=== PATIENT | male | born 1955 | race Caucasian/White ===

== ENCOUNTER 2019-09-12 13:53 | Inpatient (IN) | payer BC, SELFPAY ==
[~2019-09-12] VITALS: Ht 165.1 cm; Wt 91.6 kg
[2019-09-12 13:53] VITALS: BP_SYST 116
--- NOTE | 2019-09-12 13:53 | NUR ---
Patient to ER surge tent for evaluation. Side rails up.
--- NOTE | 2019-09-12 13:54 | NUR ---
Patient came from home for evaluation of COVID-19 symptoms. He reports being test 1 month ago with a negative test, he was tested again last Wednesday with pending results. Patient is complaining of a fever that is managed by Tylenol, chest pain, nausea, urinary retention, and dry cough.
--- NOTE | 2019-09-12 14:07 | NUR ---
ER in tent examining patient.
[2019-09-12 16:16] LABS: BASOPHILS % (AUTO) 0.4 % (0.0-2.0); HEMATOCRIT 40.9 % (36-54); HEMOGLOBIN 13.6 g/dL (14.0-18.0); LYMPHOCYTES # (AUTO) 0.5 K/uL (1.0-5.5); LYMPHOCYTES % (AUTO) 9.8 % (20.5-51.5); MEAN CORPUSCULAR HEMOGLOBIN 30 pg (27-31); MEAN CORPUSCULAR HGB CONC 33 % (32-36); MEAN CORPUSCULAR VOLUME 89 fL (79.0-98.0); MONOCYTES # (AUTO) 0.2 K/uL (0.0-1.0); MONOCYTES % (AUTO) 4.7 % (1.7-9.3); NEUTROPHILS # (AUTO) 4.4 K/uL (1.8-7.7); NEUTROPHILS % (AUTO) 85.1 % (40.0-70.0); PLATELET COUNT (AUTO) 174 K/uL (130-430); RED BLOOD CELL COUNT(AUTO) 4.58 MIL/uL (4.2-6.2); RED CELL DISTRIBUTION WIDTH 13.6 % (9.0-15.0); WHITE BLOOD COUNT (AUTO) 5.2 K/uL (4.8-10.8)
[2019-09-12 16:35] LABS: CALCIUM 8.3 mg/dL (8.4-11.0); CREATININE 0.94 mg/dL (0.55-1.30); POTASSIUM 3.7 mmol/L (3.5-5.1)
[2019-09-12 16:40] LABS: ALBUMIN 3.1 g/dL (3.4-4.8); TOTAL BILIRUBIN 0.4 mg/dL (0.0-1.0)
--- NOTE | 2019-09-12 17:00 | NUR ---
Placed in room 4. Placed on monitor and storage bin tender, blood pressure machine and pulse oximeter. To gown for exam. Side rails up. Report given to ALEXANDRU Fofana.
[2019-09-12 17:01] LABS: C-REACTIVE PROTEIN QUANT 13.7 mg/dL (0-0.5)
--- NOTE | 2019-09-12 17:01 | NUR ---
Report given to ALEXANDRU Fofana for continuation of care.
--- NOTE | 2019-09-12 17:02 | NUR ---
ASSUMED CARE OF PT IN BED 4.
--- NOTE | 2019-09-12 17:05 | NUR ---
PT AAO AND AMBULATORY C/O FEVER, CHILLS, CONGESTION, AND BODY ACHES FOR PAST 6 DAYS. PT V/S STABLE.
[2019-09-12] MEDS ORDERED: cefTRIAXone 1 GM in D5W 50 ML IV ONE (17:15)
[2019-09-12] MEDS ORDERED: AZITHROMYCIN 500 MG in NS 250 ML IV ONE (17:15)
[2019-09-12] MEDS ORDERED: AZITHROMYCIN 500 MG/VIAL (ZITHROMAX) IV ONE (18:33)
[2019-09-12] MEDS ORDERED: cefTRIAXone 1 GM VIAL ONE (18:33)
[2019-09-12 18:58] LABS: BILIRUBIN,URINE NEGATIVE (NEGATIVE); BLOOD, URINE NEGATIVE (NEGATIVE); CLARITY/URINE CLEAR (CLEAR); COLOR,URINE ORANGE (YELLOW); GLUCOSE,URINE NEGATIVE (NEGATIVE); KETONES,URINE TRACE (NEGATIVE); LEUKOCYTE ESTERASE ,URINE NEGATIVE (NEGATIVE); NITRITE, URINE NEGATIVE (NEGATIVE); PROTEIN URINE 1+ (NEGATIVE)
[2019-09-12 19:13] LABS: RBC,URINE 0-3 /HPF (0-3); WBC,URINE 0-3 /HPF (0-3)
[2019-09-12 19:14] LABS: BACTERIA,URINE FEW /HPF (None Seen)
[2019-09-12 19:18] LABS: HYALINE CASTS, URINE 0-10 /LPF (None Seen); MUCUS,URINE 2+ /LPF (None Seen)
[2019-09-12] MEDS ORDERED: AUG875 PO (19:44)
[2019-09-12] MEDS ORDERED: TAMS-11 PO (19:44)
--- NOTE | 2019-09-12 19:55 | NUR ---
PT MOVED FROM [facility] TO HOSPITAL BED. PT POSITIONED TO COMFORT. PT RE-ATTACHED TO MONITOR. SIDE RAILS UP.
--- NOTE | 2019-09-12 20:15 | NUR ---
COVID TEST SENT TO LAB.
[2019-09-12] MEDS: TAMSULOSIN HCL 0.4 MG CAP PO SCH (20:43)
[2019-09-12] MEDS: ACETAMINOPHEN 325 MG TABLET PO PRN (20:44)
--- NOTE | 2019-09-12 20:44 | NUR ---
PT MEDICATED FOR 100.5 TEMP WITH TYLENOL.
--- NOTE | 2019-09-12 20:55 | NUR ---
Transfer to HOSPITAL BED via ACLS protocol. Licensed nurse present. IV present no signs or symptoms of infiltration.
[2019-09-12] MEDS ORDERED: ZOLPIDEM TARTRATE 5 MG TABLET PO PRN (21:00)
--- NOTE | 2019-09-12 21:06 | NUR ---
Admission Note Received patient from ER with diagnosis of Hypoxia, Pneumonia, Rule out covid. Initial Plan of Care discussed-patient verbalized understanding, Isolation precautions to be provided. Oriented to room, call light, pain management and safety.
[2019-09-12 21:15] VITALS: BP_SYST 123
--- NOTE | 2019-09-12 21:15 | NUR ---
OPENING NOTES Patient is resting, no signs of distress observed, 2L NC provided, O2 at 92%. 99.2 Temperature, cooling measures provided. IV site patent, dressings c/d/i. Call light within reach, bed alarm on, bed at lowest position. Will continue to monitor.
[2019-09-12] MEDS: FAMOTIDINE 20 MG TABLET PO SCH (22:15)
[2019-09-12] MEDS ORDERED: FAMOTIDINE 20 MG TABLET PO ONE (23:59)
[2019-09-13] VITALS: BP_SYST 118
--- NOTE | 2019-09-13 00:06 | NUR ---
Patient is resting, no signs of acute respiratory distress observed. Ambulated to the restroom. Will continue to monitor.
--- NOTE | 2019-09-13 04:09 | NUR ---
Patient is resting, sleeping to the side, self thompson. O2 saturation of 93% with 4L NC at this time.
--- NOTE | 2019-09-13 06:50 | NUR ---
CLOSING NOTES Patient is resting, HOB elevated, no signs of respiratory distress observed, 4L NC. Call light within reach, bed alarm refused with proper usage of call light shown throughout shift, IV site patent, dressings c/d/i. All needs met throughout shift. will endorse care to oncoming shift.
--- NOTE | 2019-09-13 06:59 | NUR ---
Nutrition Update Jeffry Scale 18 noted. Pt admitted for Hypoxia, Pneumonia, R/O COVID Diet: Soft Low Fiber/[place] BMI: 33.6 kg/m2 RD to follow per nutrition care standards.
[2019-09-13 07:10] LABS: BASOPHILS % (AUTO) 0.2 % (0.0-2.0); HEMATOCRIT 39.2 % (36-54); HEMOGLOBIN 13.2 g/dL (14.0-18.0); LYMPHOCYTES # (AUTO) 0.7 K/uL (1.0-5.5); LYMPHOCYTES % (AUTO) 12.2 % (20.5-51.5); MEAN CORPUSCULAR HEMOGLOBIN 30 pg (27-31); MEAN CORPUSCULAR HGB CONC 34 % (32-36); MEAN CORPUSCULAR VOLUME 89 fL (79.0-98.0); MONOCYTES # (AUTO) 0.3 K/uL (0.0-1.0); MONOCYTES % (AUTO) 4.4 % (1.7-9.3); NEUTROPHILS # (AUTO) 4.8 K/uL (1.8-7.7); NEUTROPHILS % (AUTO) 83.2 % (40.0-70.0); PLATELET COUNT (AUTO) 177 K/uL (130-430); RED BLOOD CELL COUNT(AUTO) 4.39 MIL/uL (4.2-6.2); RED CELL DISTRIBUTION WIDTH 13.6 % (9.0-15.0); WHITE BLOOD COUNT (AUTO) 5.7 K/uL (4.8-10.8)
[2019-09-13 07:48] LABS: ALBUMIN 2.9 g/dL (3.4-4.8); CALCIUM 8.3 mg/dL (8.4-11.0); CREATININE 0.79 mg/dL (0.55-1.30); POTASSIUM 3.6 mmol/L (3.5-5.1); THYROID STIMULATING HORMONE 0.65 uIu/mL (0.34-4.82); TOTAL BILIRUBIN 0.5 mg/dL (0.0-1.0)
[2019-09-13 07:54] LABS: C-REACTIVE PROTEIN QUANT 15.9 mg/dL (0-0.5)
[2019-09-13 08:00] VITALS: BP_SYST 123
--- NOTE | 2019-09-13 08:00 | NUR ---
Note Pt sitting up in bed to eat his breakfast. Tele unit attached and intact at this time. IV in left AC intact and patent at this time. No SOB/resp distress or pain/discomfort noted at this time. Call light within reach.
[2019-09-13 08:36] LABS: ERYTHROCYTE SEDIMENTATION RATE 48 MM/HR (0-15)
--- NOTE | 2019-09-13 09:04 | NUR ---
CONSULTATION PAGED/CALLED Reason for Consultation: [] HUMBERTO CLEMENTE, JEANNE, START ON HCQ Person Who was Notified: [] GAMAL Consulting Physician: [] DR HAUSER Software Qa Manager Specialty: [] ID Ordering Physician: [] DR JOHNSON
[2019-09-13] MEDS: ASCORBIC ACID 500 MG TABLET PO SCH ×2 (09:28→20:30)
[2019-09-13] MEDS: FAMOTIDINE 20 MG TABLET PO SCH (09:28)
--- NOTE | 2019-09-13 09:50 | NUR ---
Note Dr Herbert at pt's bedside doing assessment and answering questions/concerns. Call light within reach.
[2019-09-13] MEDS: cefTRIAXone 1 GM in D5W 50 ML IV SCH (09:54)
--- NOTE | 2019-09-13 11:05 | NUR ---
Note Pt sitting up in BS chair watching television and has O2 on at 4L/nc all shift. No needs noted at this time. Call light within reach.
[2019-09-13] MEDS: ENOXAPARIN SODIUM 40 MG/0.4 ML SYRINGE SUBCUT SCH (11:30)
--- NOTE | 2019-09-13 11:30 | NUR ---
Note Dr Montiel on the floor to assess pt at this time.
[2019-09-13] MEDS: DECADRON 4 MG TABLET PO SCH (11:52)
[2019-09-13 12:00] VITALS: BP_SYST 120
[2019-09-13] MEDS: DOXYCYCLINE HYCLATE 100 MG CAPSULE PO SCH ×2 (12:01→20:30)
[2019-09-13] MEDS ORDERED: ENOXAPARIN SODIUM 40 MG/0.4 ML SYRINGE ONE (12:15)
--- NOTE | 2019-09-13 12:16 | NUR ---
SS NOTES: TOPOGRAPHICAL SURVEYOR attempted to phone patient @ [phone] and cell [phone], no answer. TOPOGRAPHICAL SURVEYOR phoned [facility] @ [phone], none working number.
[2019-09-13] MEDS ORDERED: ALBUTEROL SULFATE 0.083% 2.5 MG/3 ML VIAL.NEB INH SCH (15:00)
[2019-09-13] MEDS: CHOLECALCIFEROL (VITAMIN D3) 2,000 UNIT TABLET PO SCH (15:45)
[2019-09-13 16:00] VITALS: BP_SYST 142
--- NOTE | 2019-09-13 16:00 | NUR ---
Note Pt sitting in BS chair watching television. No needs noted at this time. Pt has O2 at 4L/nc on all shift. Tele unit attached and intact. Call light within reach.
[2019-09-13] MEDS ORDERED: CHOLECALCIFEROL (VITAMIN D-3) 400 UNIT TABLET ONE (16:08)
--- NOTE | 2019-09-13 18:35 | NUR ---
Note Pt sitting up in BS chair eating his dinner. Pt has been sitting up in BS chair most of shift. No SOB/resp distress or pain/discomfort noted at this time. Pt has his O2 on at 4L/nc on all shift. Pt's tele unit attached and intact all shift. Pt was checked on q1' and PRN all shift for needs and care. Pt stable to ambulate to restroom and sink for hygiene care. IV in left AC intact and patent at this time. No needs noted at this time. Pt maintained with safety and isolation precautions all shift. Bed in low position. No needs noted at this time. Call light within reach.
--- NOTE | 2019-09-13 19:34 | NUR ---
ROUNDS PATIENT RESTING COMFORTABLY IN BED, VITALS STABLE, NO PAIN AT THIS TIME. ASSESSMENT DONE AND DOCUEMNTED. SEE FLOWSHEET. NEEDS ATTENDED TO. SAFETY MEASURES IN PLACED. CALL LIGHT PLACED WITHIN REACH.
[2019-09-13 20:00] VITALS: BP_SYST 120
[2019-09-13] MEDS: TAMSULOSIN HCL 0.4 MG CAP PO SCH (20:30)
--- NOTE | 2019-09-13 22:14 | NUR ---
MEDICATION DUE MEDICATIONS GIVEN ORDERED, TOLERATED WELL. WILL CONTINUE TO MONITOR.
--- NOTE | 2019-09-14 00:12 | NUR ---
PATIENT RESTING: Patient resting quietly. No acute distress noted. Vital signs within normal range.
--- NOTE | 2019-09-14 02:16 | NUR ---
ROUNDS PATIENT ASLEEP, RESPIRATIONS EVEN AND UNLABORED, WILL CONTINUE TO MONITOR.
--- NOTE | 2019-09-14 04:13 | NUR ---
PATIENT RESTING: Patient resting quietly. No acute distress noted. Vital signs within normal range.
[2019-09-14 08:00] VITALS: BP_SYST 129
--- NOTE | 2019-09-14 08:00 | NUR ---
OPENING NOTES, RECEIVED PT IN BED , PT IS AAOX4, DENIES PAIN, NO SOB, PT NOTED TO HAVE CRACKLES ON BOTH LUNGS, PT ENCOURAGED TO TAKE DEEP BREATHS AND DO PRONING.
[2019-09-14] MEDS: cefTRIAXone 1 GM in D5W 50 ML IV SCH (08:31)
[2019-09-14] MEDS: CHOLECALCIFEROL (VITAMIN D3) 2,000 UNIT TABLET PO SCH (08:32)
[2019-09-14] MEDS: ASCORBIC ACID 500 MG TABLET PO SCH ×2 (08:32→21:36)
[2019-09-14] MEDS: FAMOTIDINE 20 MG TABLET PO SCH (08:32)
[2019-09-14] MEDS: ENOXAPARIN SODIUM 40 MG/0.4 ML SYRINGE SUBCUT SCH (08:32)
[2019-09-14] MEDS: DOXYCYCLINE HYCLATE 100 MG CAPSULE PO SCH ×2 (08:32→21:36)
[2019-09-14 08:50] LABS: BASOPHILS % (AUTO) 0.1 % (0.0-2.0); HEMATOCRIT 41.3 % (36-54); HEMOGLOBIN 14.3 g/dL (14.0-18.0); LYMPHOCYTES # (AUTO) 0.7 K/uL (1.0-5.5); LYMPHOCYTES % (AUTO) 7.5 % (20.5-51.5); MEAN CORPUSCULAR HEMOGLOBIN 31 pg (27-31); MEAN CORPUSCULAR HGB CONC 35 % (32-36); MEAN CORPUSCULAR VOLUME 90 fL (79.0-98.0); MONOCYTES # (AUTO) 0.6 K/uL (0.0-1.0); MONOCYTES % (AUTO) 6.4 % (1.7-9.3); PLATELET COUNT (AUTO) 206 K/uL (130-430); RED BLOOD CELL COUNT(AUTO) 4.61 MIL/uL (4.2-6.2); RED CELL DISTRIBUTION WIDTH 13.7 % (9.0-15.0); WHITE BLOOD COUNT (AUTO) 9.3 K/uL (4.8-10.8)
[2019-09-14 09:42] LABS: C-REACTIVE PROTEIN QUANT 17.1 mg/dL (0-0.5)
--- NOTE | 2019-09-14 09:45 | NUR ---
PT IN CHAIR RESTING, NO C/O PAIN, NO SOB, PT UNHOOKED FROM IV, PT ON O2.
--- NOTE | 2019-09-14 09:48 | NUR ---
PT IN CHAIR, NO C/O PAIN, PT ON O2 5L NC, SATURATION IS 93%.
--- NOTE | 2019-09-14 10:09 | NUR ---
DR ALATORRE HERE AND SEEN PT, MD ENCOURAGED PT TO DO SELF PRONING AND NEW ORDERS GIVEN.
[2019-09-14] MEDS: HYDROXYCHLOROQUINE SULFATE 200 MG TABLET PO SCH ×2 (12:01→22:59)
[2019-09-14] MEDS: DECADRON 4 MG TABLET PO SCH (12:02)
[2019-09-14 12:18] VITALS: BP_SYST 116
--- NOTE | 2019-09-14 13:23 | NUR ---
PATIENT SATURATION ON 7LI NC IS 88-89%, DR JOHNSON MADE AWARE, NEW ORDER GIVEN AND CARRIED OUT.
[2019-09-14] MEDS: ALBUTEROL MDI INHALATION 8 GM INH INH SCH ×2 (13:49→22:20)
--- NOTE | 2019-09-14 14:08 | NUR ---
CONSULTATION: REASON FOR CONSULT: COVID + PNA, O2 DESATURATION DESPITE ESCALATING O2 SUP CONSULTING PHYSICIAN: ISRA RICHARDSON DO ORDERED BY: YOLANDA JOHNSON MD CALLED THE OFFICE AND I WAS INSTRUCTED TO USE THE PAGER. LEFT [facility] [phone]
[2019-09-14] MEDS: POTASSIUM CHLORIDE 10 MEQ in NACL 0.9% 1,000 ML IV SCH ×2 (15:00→20:08)
[2019-09-14 16:25] VITALS: BP_SYST 102
--- NOTE | 2019-09-14 16:30 | NUR ---
LEFT AC IV ACCESS LEAKING, DISCONTINUE, NEW IV ON LEFT FOREARM STARTED, PT TOLERATED WELL. IV FLUIDS INFUSING WELL. PT O2 SAT ON 5 LI OXIMIZER IS 93%. WILL CONT TO MONITOR.
[2019-09-14 16:33] LABS: ALBUMIN 2.8 g/dL (3.4-4.8); CALCIUM 8.9 mg/dL (8.4-11.0); CREATININE 0.88 mg/dL (0.55-1.30); POTASSIUM 4.3 mmol/L (3.5-5.1); TOTAL BILIRUBIN 0.4 mg/dL (0.0-1.0)
[2019-09-14 17:09] LABS: HEMATOCRIT 41.1 % (36-54); HEMOGLOBIN 13.9 g/dL (14.0-18.0); LYMPHOCYTES % (AUTO) 4.6 % (20.5-51.5); MEAN CORPUSCULAR HEMOGLOBIN 30 pg (27-31); MEAN CORPUSCULAR HGB CONC 34 % (32-36); MEAN CORPUSCULAR VOLUME 90 fL (79.0-98.0); NEUTROPHILS % (AUTO) 90.7 % (40.0-70.0); PLATELET COUNT (AUTO) 228 K/uL (130-430); RED BLOOD CELL COUNT(AUTO) 4.58 MIL/uL (4.2-6.2); RED CELL DISTRIBUTION WIDTH 13.6 % (9.0-15.0); WHITE BLOOD COUNT (AUTO) 11.7 K/uL (4.8-10.8)
[2019-09-14 17:10] LABS: LYMPHOCYTES # (AUTO) 0.5 K/uL (1.0-5.5); MONOCYTES # (AUTO) 0.5 K/uL (0.0-1.0); MONOCYTES % (AUTO) 4.7 % (1.7-9.3); NEUTROPHILS # (AUTO) 10.6 K/uL (1.8-7.7)
--- NOTE | 2019-09-14 18:32 | NUR ---
pt c/o of shortness of breath, stated that he was coughing, o2 sat was 89% on 6 li oxymizer, increased o2 to 8 li. will cont to monitor.
--- NOTE | 2019-09-14 18:42 | NUR ---
CLOSING NOTES, PT PLACED ON OXYMIZER 6 LI SINCE THIS PM FROM 02 7 LI PER NC, O2 SAT WENT UP TO 92-93%. BEFORE DINNER PT AMBULATED TO BATHROOM WITH OUT OXYGEN, O2 SAT WENT DOWN TO 88 % AND REMAINDE THERE EVEN AFTER RECONNECTED TO OXYMIZER, PT C/O OF COUGHING AND HAD AND EPISODE OF SHORTNESS OF BREATH, 02 WAS INCREASED TO 8LI. WILL ENDORSE TO NIGHT NURSE. Addendum: 09/14/19 at 1851 by Sebastian Carver RN PT GIVEN MDI INHALATION 2 PUFFS.
--- NOTE | 2019-09-14 20:00 | NUR ---
INITIAL NOTES: PT IS AWAKE , SITTING UP ON A CHAIR AT THE BEDSIDE ; NOT IN ANY ACUTE DISTRESS; ONO2 VIA OXYMIZER 8 L , SAT 92% ; WILL DO ASSESSMENT LATER
[2019-09-14 21:00] VITALS: BP_SYST 112
--- NOTE | 2019-09-14 21:00 | NUR ---
RN NOTES: PT IS STILL SITTING ON A CHAIR AT THE BEDSIDE ; NOT IN ANY ACUTE DISTRESS; ENCOURAGED PT TO DO DEEP BREATHING EXERCISE AND EDUCATED PT ON NEED FOR PRONE POSITION WHILE SLEEPING ; PT STATED HE WILL TRY IT TONIGHT ; ASSESSMENT DONE ; ON O2 8L VIA OXYMIZER STILL SAT 92- 93% AT THIS TIME ; BED IN LOW AND LOCK POSITION ; CALL NUNEZ IN REACH ; ENCOURAGED PT TO CALL FOR ASSIST ; PER REPORT PT DESAT WHILE AMBULATING ; ENCOURAGED PT TO CALL FOR ASSIST WHILE USING RESTROOM ; IS AWARE ABOUT THE DESAT AND AN ORDER IN PLACE TO KEEP SAT ABOVE 92 ON OXYMIZER . WILL CONTINUE TO MONITOR PT , TELEMONITOR IN PLACE RUNNING SR ; CONTINUOS PULSE OX IN PLACE .
--- NOTE | 2019-09-14 21:30 | NUR ---
MEDICATION : DUE MEDS GIVEN PER ORDER ; PT IS COMFORTABLE ; STILL SITTING AT BEDSIDE ON A CHAIR ; WILL CONTINUE TO MONITOR PT .
[2019-09-14] MEDS: TAMSULOSIN HCL 0.4 MG CAP PO SCH (21:35)
--- NOTE | 2019-09-14 23:00 | NUR ---
RN NOTES: PROVIDED PLAQUENIL PER ORDER PTS PREVIOUS QTC WAS 393 ; PT IS STILL SITTING UP STATED HE WILL BE GOING TO BED SOON TO SLEEP ; ENCOURAGED PT TO SLEEP ON PRONE POSITION .
[2019-09-14] MEDS ORDERED: guaiFENesin/DEXTROMETHORPHAN 10 ML UDC PO PRN (23:15)
--- NOTE | 2019-09-15 00:05 | NUR ---
PT IS SLEEPING NOTICED THAT PT IS DESATING TO 865 ; ENCOURAGED PT TO TAKE DEEP BREATHS STILL WHILE PT IS SLEEPING SAT DROPPING TO MID 80S ; INCREASED O2 TO 10 L VIA OXYMIZER , CHARGE NURSE MADE AWARE ,ALSO NOTIFIED RT .
[2019-09-15 00:40] VITALS: BP_SYST 112
--- NOTE | 2019-09-15 00:50 | NUR ---
RN NOTES: WITH 10 L O2 STILL PT IS DESATING TO 86-87% ; RT MADE AWARE , STATED WILL COME AND CHECK PT ; ENCOURAGED PT TO TAKE DEEP BREATHING EXERCISE.
[2019-09-15 01:00] VITALS: BP_SYST 112
--- NOTE | 2019-09-15 01:10 | NUR ---
NON REBREATHER : AFTER CHECKING BY RT , RT PLACED PT ON NON REBREATHER MASK 15L ; NOTIFIED CHARGE NURSE AND BARREL FINISHER ; WILL NOTIFY BUSINESS COMMUNICATIONS INSTRUCTOR .
--- NOTE | 2019-09-15 01:15 | NUR ---
PT IS SAT ABOVE 94% AT THIS TIME ; WILL MONITOR PT .
--- NOTE | 2019-09-15 02:00 | NUR ---
CALLED BACK : DR STREET IS SUBGRADE ROLLER OPERATOR FOR DR RICHARDSON , PULMO DIDNT SEEN THIS PT YET , SO EXPLAINED SITUATION OF LOW O2 SAT , ALSO EXPLAINED TO HIM THAT PT WAS ON O2 VIA NC YESTERDAY AND FROM TODAY MORNING PT IS ON OXYMIZER DUE TO DESAT , DURING START OF THE SHIFT PT WAS ON 8 L OXYMIZER AND WHILE SLEEPING PT WAS DESAT TO MID 80S SO INCREASED TO 10 L VIA OXYMIZER AND STILL DESAT TO 87% RT NOTIFIED AND RT PLACED PT ON NON REBREATHER MASK 15 L AND PT IS STILL ON LOW 90S SOMETIMES DROP TO 89%; STATED " OK , HE WILL COME AND SEE THE PT IN THE MORNING " AND HANGED UP THE PHONE . Addendum: 09/15/19 at 0542 by Gilmar Hurtado RN CORRECTION : DR COPE WAS SUBGRADE ROLLER OPERATOR FOR DR RICHARDSON , NOT DR STREET
--- NOTE | 2019-09-15 02:20 | NUR ---
C DIFF SPECIMEN COLLECTED : PT HAS A SMALL SOFT BM ; NOT WATERY , SINCE MD ORDERED SENT SPECIMEN TO LAB .
[2019-09-15] MEDS: POTASSIUM CHLORIDE 10 MEQ in NACL 0.9% 1,000 ML IV SCH ×2 (02:30→09:06)
--- NOTE | 2019-09-15 03:29 | NUR ---
RN ROUNDS: PT IS SLEEPING , NOT IN ANY ACUTE DISTRESS; RESPIRATION IS EVEN AND NON LABORED ; SAT 92-93 % AT THIS TIME ; WILL MONITOR .
--- NOTE | 2019-09-15 05:35 | NUR ---
MD CALLED BACK : DR COPE CALLED AND CHECKED ABOUT THE PTS CONDITION ; NOTIFIED HIM THAT PT IS ON O2 VIA NON REBREATHER AT 15L ; SAT 92%, SOMETIMES DROP TO 89% BUT NOT SUSTAINING ; MD ASKED TO ENCOURAGE PT TO BE ON PRONE POSITION ; NOTIFIED MD THAT PT WAS EDUCATED BUT HE DOESNT WANT TO TRY ; MD ASKED TO ENCOURAGE AGAIN ; MD ASKED ABOUT THE PTS MEDICATION ; NOTIFIED ABOUT HIS MEDS ; MD STATED DR RICHARDSON WILL COME AND SEE THE PT LATER .
[2019-09-15] MEDS: ALBUTEROL MDI INHALATION 8 GM INH INH SCH ×3 (06:40→23:00)
[2019-09-15] MEDS: ACETAMINOPHEN 325 MG TABLET PO PRN ×2 (06:41→15:28)
--- NOTE | 2019-09-15 07:20 | NUR ---
CLOSING NOTES: PT IS SITTING UP AT BEDSIDE , ON NON REBREATHER MASK 15 L - SAT 91% ; STATED HE FEELS BETTER WHEN HE STARTED USING NON REBREATHER MASK , PT WAS EDUCATED ON PRONE POSITIONING , PT REFUSED TO DO ; ON CONTINUOS PULSE OX . REPORT GIVEN TO PRIMARY RN .ALL NEEDS ATTENDED .
--- NOTE | 2019-09-15 07:50 | NUR ---
INITIAL NOTE RECEIVED PT IN BED, NO S/S OF DISTRESS OR SOB NOTED, PT HAS NO C/O PAIN AT THIS TIME, PT IN STABLE CONDITION, PT AAOX4, VERBAL. IV CATHETER PATENT, NO S/S OF INFECTION OR INFILTRATION NOTED, RUNNING IV FLUIDS ORDERED. PT ON NONREBREATHER AT 15L SATURATION OF 93%. BED AT LOWEST POSITION, CALL LIGHT WITHIN REACH, WILL CONTINUE TO MONITOR PT FOR ANY CHANGES, FALL AND SAFETY PRECAUTIONS IN PLACE. Addendum: 09/15/19 at 0948 by La Bhatti RN EDUCATED PT ON PRONE POSITION, PT REFUSED AT THIS TIME.
[2019-09-15 07:52] LABS: BASOPHILS % (AUTO) 0.1 % (0.0-2.0); HEMATOCRIT 39.2 % (36-54); HEMOGLOBIN 13.2 g/dL (14.0-18.0); LYMPHOCYTES # (AUTO) 0.4 K/uL (1.0-5.5); LYMPHOCYTES % (AUTO) 2.8 % (20.5-51.5); MEAN CORPUSCULAR HEMOGLOBIN 30 pg (27-31); MEAN CORPUSCULAR HGB CONC 34 % (32-36); MEAN CORPUSCULAR VOLUME 89 fL (79.0-98.0); MONOCYTES # (AUTO) 0.8 K/uL (0.0-1.0); MONOCYTES % (AUTO) 5.5 % (1.7-9.3); NEUTROPHILS # (AUTO) 12.9 K/uL (1.8-7.7); NEUTROPHILS % (AUTO) 91.6 % (40.0-70.0); PLATELET COUNT (AUTO) 252 K/uL (130-430); RED BLOOD CELL COUNT(AUTO) 4.39 MIL/uL (4.2-6.2); RED CELL DISTRIBUTION WIDTH 13.8 % (9.0-15.0); WHITE BLOOD COUNT (AUTO) 14.1 K/uL (4.8-10.8)
[2019-09-15] MEDS: CHOLECALCIFEROL (VITAMIN D3) 2,000 UNIT TABLET PO SCH (08:05)
[2019-09-15] MEDS: DOXYCYCLINE HYCLATE 100 MG CAPSULE PO SCH ×2 (08:05→21:38)
[2019-09-15] MEDS: FAMOTIDINE 20 MG TABLET PO SCH (08:05)
[2019-09-15] MEDS: ENOXAPARIN SODIUM 40 MG/0.4 ML SYRINGE SUBCUT SCH (08:06)
[2019-09-15] MEDS: cefTRIAXone 1 GM in D5W 50 ML IV SCH (08:08)
[2019-09-15] MEDS: ASCORBIC ACID 500 MG TABLET PO SCH ×2 (08:08→21:38)
--- NOTE | 2019-09-15 08:10 | NUR ---
SATURATION PATIENT'S SATURATION OF 76% ON ROOM AIR PT EATING BREAKFAST, ADVISED PT PLACE NONREBREATHER AFTER HE FINISHES BREAKFAST, PT VERBALIZED UNDERSTANDING. PT PLACED NONREBREATHER BACK AND SATURATION OF 91%.
[2019-09-15 08:15] LABS: ALBUMIN 2.5 g/dL (3.4-4.8); C-REACTIVE PROTEIN QUANT 9.4 mg/dL (0-0.5); CALCIUM 8.7 mg/dL (8.4-11.0); CREATININE 0.83 mg/dL (0.55-1.30); TOTAL BILIRUBIN 0.4 mg/dL (0.0-1.0)
[2019-09-15 08:40] VITALS: BP_SYST 99
--- NOTE | 2019-09-15 10:00 | NUR ---
MD JOSE ELIAS SCANLON ROUNDING, AWARE OF PATIENT'S CONDITION PER MD IF PT SATURATION DECREASES THEN PT NEEDS TO BE ON HIGH FLOW OXYGEN AND TRANSFER PT TO ICU, CHARGE NURSE MADE AWARE.
--- NOTE | 2019-09-15 10:27 | NUR ---
ROUNDS PT IN BED, NO S/S OF DISTRESS OR SOB NOTED, PT HAS NO C/O PAIN AT THIS TIME, SATURATION OF 91% ON NONREBREATHER 15L AT 100%. PT RESTING COMFORTABLY, PT EDUCATED TO BE ON PRONE POSITION, PT REFUSED. WILL CONTINUE TO MONITOR PT FOR ANY CHANGES.
[2019-09-15 10:50] LABS: FERRITIN 2556 ng/mL (30-400)
[2019-09-15] MEDS: DECADRON 4 MG TABLET PO SCH (11:34)
[2019-09-15] MEDS: INSULIN LISPRO SLIDING SCALE 100 UNITS/ML VIAL (humaLOG) SUBCUT PRN ×3 (11:58→22:46)
[2019-09-15 12:06] VITALS: BP_SYST 114
--- NOTE | 2019-09-15 12:55 | NUR ---
ROUNDS PT IN BED, NO S/S OF DISTRESS OR SOB NOTED, PT HAS NO C/O PAIN AT THIS TIME, SATURATION OF 92% ON NONREBREATHER 15L AT 100%. PT RESTING COMFORTABLY, PT EDUCATED TO BE ON PRONE POSITION, PT REFUSED. WILL CONTINUE TO MONITOR PT FOR ANY CHANGES.
--- NOTE | 2019-09-15 14:55 | NUR ---
ROUNDS PT IN BED, NO S/S OF DISTRESS OR SOB NOTED, PT HAS NO C/O PAIN AT THIS TIME, SATURATION OF 92% ON NONREBREATHER 15L AT 100%. PT RESTING COMFORTABLY, PT EDUCATED TO BE ON PRONE POSITION, PT TRIED FOR AN HOUR. WILL CONTINUE TO MONITOR PT FOR ANY CHANGES.
[2019-09-15 16:30] VITALS: BP_SYST 120
--- NOTE | 2019-09-15 16:55 | NUR ---
ROUNDS PT IN BED, NO S/S OF DISTRESS OR SOB NOTED, PT HAS NO C/O PAIN AT THIS TIME, SATURATION OF 92% ON NONREBREATHER 15L AT 100%. PT RESTING COMFORTABLY. WILL CONTINUE TO MONITOR PT FOR ANY CHANGES.
--- NOTE | 2019-09-15 18:28 | NUR ---
CLOSING NOTE PT IN BED, NO S/S OF DISTRESS OR SOB NOTED, PT HAS NO C/O PAIN AT THIS TIME, PT IN STABLE CONDITION, PT AAOX4, VERBAL. IV CATHETER PATENT, NO S/S OF INFECTION OR INFILTRATION NOTED, RUNNING IV FLUIDS ORDERED. PT ON NONREBREATHER AT 15L SATURATION OF 91%. BED AT LOWEST POSITION, CALL LIGHT WITHIN REACH, WILL ENDORSE CARE OF PT TO INCOMING NURSE, FALL AND SAFETY PRECAUTIONS IN PLACE. EDUCATED PT ON PRONE POSITION, PT REFUSED BUT DID IT ONE TIME FOR AN HOUR DURING SHIFT.
--- NOTE | 2019-09-15 19:50 | NUR ---
Opening Notes Received patient awake, AOx4, sitting on chair at bedside. No s/sx of distress and denied pain. IVF infusing via IV to LFA. Nonlabored breathing on nonrebreather at 15L and oxygen saturation at 93%. Bed alarm is off, he is steady and uses BSC at bedside. He has an extension on oxygen. Bed is locked in lowest position, side rails up 2x and call light w/in reach. Updated board and reviewed plan of care.
[2019-09-15 20:00] VITALS: BP_SYST 117
--- NOTE | 2019-09-15 20:00 | NUR ---
blood product consent Reviewed convalescent plasma transfusion information with patient and also possible side effects, he verbalized understanding and signed consent.
[2019-09-15] MEDS ORDERED: ENOXAPARIN SODIUM 40 MG/0.4 ML SYRINGE SUBCUT SCH (21:00)
--- NOTE | 2019-09-15 21:15 | NUR ---
Dr. Lemus [facility] does not have order for plasma transfusion and I s/w Dr. Lemus and confirmed the order to transfuse 1 unit of convalescent plasma, order entered in [employer].
[2019-09-15] MEDS: TAMSULOSIN HCL 0.4 MG CAP PO SCH (21:36)
[2019-09-15] MEDS: HYDROXYCHLOROQUINE SULFATE 200 MG TABLET PO SCH (21:37)
--- NOTE | 2019-09-15 21:46 | NUR ---
Meds Due medications given, reviewed side effects (e.g. Plaquenil, Vibramycin, vit C) and he verbalized understanding. Lovenox administered on abdomen and he tolerated. He said he will sleep after meds. Unable to do Accucheck at this time, will return. Call light w/in reach.
--- NOTE | 2019-09-15 22:30 | NUR ---
Incoming call from s/w Tierra, patient's . Answered her questions.
--- NOTE | 2019-09-15 22:46 | NUR ---
Fingerstick BGT Fingerstick BGT was done w/ result of 154mg/dL and administered 2u per sliding scale order. Accu-check was not done earlier due to patient did not have an ID band and needed to go to front of hospital for an ID to so glucometer can scan. Also, we have a shortage on glucometers (one glucometer for [facility] isolation unit) and I had to wait for glucometer to become available.
[2019-09-16 00:34] VITALS: BP_SYST 115
--- NOTE | 2019-09-16 00:40 | NUR ---
Diarrhea Patient had an episode of diarrhea; bed pad soiled. He was provided with clean linen and pad. Patient also states that he doesn't want to take meds if they are causing diarrhea.
[2019-09-16 04:30] VITALS: BP_SYST 113
[2019-09-16] MEDS: ACETAMINOPHEN 325 MG TABLET PO PRN (05:12)
[2019-09-16] MEDS: POTASSIUM CHLORIDE 10 MEQ in NACL 0.9% 1,000 ML IV SCH ×2 (05:12→16:14)
--- NOTE | 2019-09-16 05:13 | NUR ---
Tylenol, Robitussin, IVF Patient reporting mild pain to his back and also has an occasional cough. Tylenol given for pain and Robitussin for cough. Hung new bag of IVF fluids and infusing well, no infiltration noted. Will continue to monitor.
--- NOTE | 2019-09-16 06:50 | NUR ---
closing note Patient is awake and resting on chair at bedside. Nonlabored breathing on nonrebreather 15L. Fingerstick blood glucose done w/ result of 140mg/dL; no coverage. IVF infusing well, no sign of infiltration. Patient took MDI dose - 2 puffs. Needs met throughout the shift. Safety and isolation precautions maintained. Will endorse care to day shift nurse.
[2019-09-16] MEDS: ALBUTEROL MDI INHALATION 8 GM INH INH SCH ×3 (06:55→22:03)
--- NOTE | 2019-09-16 07:15 | NUR ---
OPENING NOTES PT AWAKE, ALERT, AND ORIENTED. NONLABORED BREATHING NOTED ON 15L VIA NON-REBREATHER MASK, O2 AT 96%. PT DENIES PAIN AND SOB AT THIS TIME. IV LINE INTACT AND PATENT, NO SIGNS OF INFILTRATION NOTED, FLUIDS RUNNING ORDERED PER MD, TOLERATING WELL. NO ACUTE DISTRESS NOTED. ALL NEEDS MET. CALL LIGHT IN REACH. FALL, ASPIRATION, AND ISOLATION PRECAUTIONS IN PLACE. CONTINUE TO MONITOR.
[2019-09-16 08:00] VITALS: BP_SYST 117
--- NOTE | 2019-09-16 08:41 | NUR ---
Nutrition Update Jeffry Scale 18 noted. Pt admitted for hypoxemia, pneumonia, COVID-19. Diet: Soft (Low fiber/bland) BMI: 33.6 kg /m2 RD to follow per nutrition care standards.
[2019-09-16] MEDS: cefTRIAXone 1 GM in D5W 50 ML IV SCH (09:00)
[2019-09-16] MEDS: ENOXAPARIN SODIUM 100 MG/ML SYRINGE SUBCUT SCH ×2 (09:33→21:45)
[2019-09-16] MEDS: CHOLECALCIFEROL (VITAMIN D3) 2,000 UNIT TABLET PO SCH (09:33)
[2019-09-16] MEDS: HYDROXYCHLOROQUINE SULFATE 200 MG TABLET PO SCH (09:33)
[2019-09-16] MEDS: FAMOTIDINE 20 MG TABLET PO SCH (09:33)
[2019-09-16] MEDS: ASCORBIC ACID 500 MG TABLET PO SCH ×2 (09:33→21:45)
[2019-09-16] MEDS: DOXYCYCLINE HYCLATE 100 MG CAPSULE PO SCH ×2 (09:33→21:45)
--- NOTE | 2019-09-16 09:33 | NUR ---
ROUTINE MEDS ROUTINE MEDS ADMINISTERED ORDERED PER MD, EDUCATION GIVEN, TOLERATED WELL. PT REFUSED ROCEPHIN ABX DUE TO HIS DIARRHEA, WILL INFORM DR. ALATORRE. CONTINUE TO MONITOR.
[2019-09-16 10:18] LABS: HEMATOCRIT 40.2 % (36-54); HEMOGLOBIN 13.5 g/dL (14.0-18.0); LYMPHOCYTES # (AUTO) 0.3 K/uL (1.0-5.5); LYMPHOCYTES % (AUTO) 2.4 % (20.5-51.5); MEAN CORPUSCULAR HEMOGLOBIN 30 pg (27-31); MEAN CORPUSCULAR HGB CONC 34 % (32-36); MEAN CORPUSCULAR VOLUME 89 fL (79.0-98.0); MONOCYTES # (AUTO) 0.5 K/uL (0.0-1.0); MONOCYTES % (AUTO) 3.9 % (1.7-9.3); NEUTROPHILS # (AUTO) 12.8 K/uL (1.8-7.7); NEUTROPHILS % (AUTO) 93.7 % (40.0-70.0); PLATELET COUNT (AUTO) 307 K/uL (130-430); RED BLOOD CELL COUNT(AUTO) 4.52 MIL/uL (4.2-6.2); RED CELL DISTRIBUTION WIDTH 13.9 % (9.0-15.0); WHITE BLOOD COUNT (AUTO) 13.7 K/uL (4.8-10.8)
[2019-09-16 10:34] LABS: ALBUMIN 2.7 g/dL (3.4-4.8); CALCIUM 8.8 mg/dL (8.4-11.0); CREATININE 0.76 mg/dL (0.55-1.30); POTASSIUM 4.1 mmol/L (3.5-5.1); TOTAL BILIRUBIN 0.8 mg/dL (0.0-1.0)
[2019-09-16 10:44] LABS: C-REACTIVE PROTEIN QUANT 14.2 mg/dL (0-0.5)
[2019-09-16 12:00] VITALS: BP_SYST 126
[2019-09-16] MEDS: DECADRON 4 MG TABLET PO SCH (13:00)
--- NOTE | 2019-09-16 13:00 | NUR ---
ROUTINE MEDS ADMINISTERED ORDERED PER MD, EDUCATION GIVEN, TOLERATED WELL, ACCUCHECK DONE, NO INSULIN COVERAGE NEEDED PER SLIDING SCALE. CONTINUE TO MONITOR.
--- NOTE | 2019-09-16 13:15 | NUR ---
SPOKE TO DR. ALATORRE REGARDING PT'S REFUSAL OF ROCEPHIN, NO NEW ORDERS RECEIVED.
--- NOTE | 2019-09-16 14:28 | NUR ---
Dietitian Recommendations * [facility] if BG labs continue to trend upward Monitor/Evaluation Comment BG labs, PO intake Please see Nutrition Assessment for details. SS, RD
--- NOTE | 2019-09-16 15:30 | NUR ---
SEEN BY DR. JOHNSON AT BEDSIDE, INSTRUCTED PT TO PRACTICE PRONE POSITION, PT VERBALIZED UNDERSTANDING.
[2019-09-16 16:00] VITALS: BP_SYST 118
--- NOTE | 2019-09-16 16:00 | NUR ---
PT WAS PUT IN PRONE POSITION, TOLERATED WELL, CONTINUE TO MONITOR.
[2019-09-16] MEDS: INSULIN LISPRO SLIDING SCALE 100 UNITS/ML VIAL (humaLOG) SUBCUT PRN ×2 (17:00→22:35)
--- NOTE | 2019-09-16 19:00 | NUR ---
CLOSING NOTES PT AWAKE, ALERT, AND ORIENTED. PT STATED BEING IN PRONE POSITION FOR 1.5 HOURS. NONLABORED BREATHING NOTED, RECEIVING O2 AT 15LPM VIA NONREBREATHER MASK, TOLERATING WELL. PT DENIES PAIN AND SOB AT THIS TIME. IV LINE INTACT AND PATENT, NO SIGNS OF INFILTRATION NOTED, FLUIDS RUNNING ORDERED, TOLERATING WELL. BED LOCKED AND IN LOWEST POSITION. ALL NEEDS MET. CALL LIGHT IN REACH. FALL, ASPIRATION, AND ISOLATION PRECAUTIONS IN PLACE. ENDORSED CARE TO ALEXANDRU MANZO.
--- NOTE | 2019-09-16 19:10 | NUR ---
OPENING NOTE: Patient awake, AOx4. No s/s of acute distress noted. Breathing is even and slightly exerted with activity. Patient attached to non-rebreather mask at 15L/min. Tolerating well with O2 saturation of 94%. IVF infusing well. IV site is patent without redness or infiltration. Bed locked in lowest position, call light with patient. Patient educated on importance and use of call light. Patient verbalized understanding and demonstrated proper use. Bed alarm not indicated as patient is ambulatory with a steady gait. No further needs at this time. Will continue to monitor.
[2019-09-16 20:00] VITALS: BP_SYST 140
--- NOTE | 2019-09-16 21:35 | NUR ---
ROUNDS: Patient sitting in chair at this time. No s/s of acute distress noted. Breathing is even and slightly labored. Patient attached to non-rebreather mask at 15L/min. No further needs at this time. All safety measures in place. Will continue to monitor.
[2019-09-16] MEDS: TAMSULOSIN HCL 0.4 MG CAP PO SCH (21:45)
--- NOTE | 2019-09-16 23:39 | NUR ---
SPOKE WITH : Spoke with , Lexis at this time. All questions answered.
[2019-09-17] VITALS: BP_SYST 138
--- NOTE | 2019-09-17 01:35 | NUR ---
IV REMOVAL/IV RE-INSERTION: Complaining of pain to IV site. IV removed with catheter fully intact. Pressure applied for 5 minutes. No signs of active bleeding noted. Restarted on LAC. Successful after 3 attempts. Resumed current IVF and regulated @ 100 per hour. Will observe for any signs of infiltration.
[2019-09-17] MEDS: POTASSIUM CHLORIDE 10 MEQ in NACL 0.9% 1,000 ML IV SCH ×2 (02:17→11:50)
--- NOTE | 2019-09-17 03:07 | NUR ---
ROUNDS: Patient awake, sitting on chair at bedside. Breathing is even and unlabored. Another blanket provided. No further needs. All safety precautions in place. Will continue to monitor.
[2019-09-17 04:00] VITALS: BP_SYST 141
--- NOTE | 2019-09-17 05:45 | NUR ---
ROUNDS: Patient awake, sitting on chair at bedside. Breathing is even and unlabored. No further needs. All safety precautions in place. Will continue to monitor.
[2019-09-17] MEDS: INSULIN LISPRO SLIDING SCALE 100 UNITS/ML VIAL (humaLOG) SUBCUT PRN (06:38)
--- NOTE | 2019-09-17 06:39 | NUR ---
CLOSING NOTE: Patient resting in bed. No s/s of acute distress noted. Breathing is even and slightly exerted with activity. Patient attached to non-rebreather mask at 15L/min. Tolerating well with O2 saturation of 90-94%. IVF infusing well. IV site is patent without redness or infiltration. All needs met throughout the shift. All safety/isolation precautions maintained throughout the shift. No further needs at this time. Will continue to monitor until endorsement of care to dayshift nurse.
[2019-09-17] MEDS: ALBUTEROL MDI INHALATION 8 GM INH INH SCH ×3 (06:46→20:50)
[2019-09-17 08:00] VITALS: BP_SYST 121; BP_SYST 136
--- NOTE | 2019-09-17 08:00 | NUR ---
Initial note: Patient is alert, oriented x4, denies any pain or discomfort. He is sitting on the chair bedside, with Oxygen 15 L/M via non-rebreather mask, no sign of SOB. He is also on IVF NS + 10 mEq of KCL at 100 ml/hr, infusing well via left Forearm # 20G.
[2019-09-17 08:22] LABS: ALBUMIN 2.5 g/dL (3.4-4.8); BILIRUBIN,DIRECT 0.4 mg/dL (0.0-0.3); CALCIUM 8.8 mg/dL (8.4-11.0); CREATININE 0.7 mg/dL (0.55-1.30); POTASSIUM 3.7 mmol/L (3.5-5.1); TOTAL BILIRUBIN 0.9 mg/dL (0.0-1.0)
[2019-09-17] MEDS: cefTRIAXone 1 GM in D5W 50 ML IV SCH (08:32)
[2019-09-17] MEDS: FAMOTIDINE 20 MG TABLET PO SCH (08:32)
[2019-09-17] MEDS: ASCORBIC ACID 500 MG TABLET PO SCH ×2 (08:33→21:25)
[2019-09-17] MEDS: DOXYCYCLINE HYCLATE 100 MG CAPSULE PO SCH ×2 (08:33→21:25)
[2019-09-17] MEDS: CHOLECALCIFEROL (VITAMIN D3) 2,000 UNIT TABLET PO SCH (08:33)
[2019-09-17] MEDS: ENOXAPARIN SODIUM 100 MG/ML SYRINGE SUBCUT SCH ×2 (09:00→21:25)
--- NOTE | 2019-09-17 11:00 | NUR ---
round: Dr. Herbert makes round, speaks to the patient. Inform her about patient has loose greenish stool x 3 , small amount each time since this morning. Will F/U on new orders.
[2019-09-17] MEDS: DECADRON 4 MG TABLET PO SCH (11:21)
[2019-09-17 12:00] VITALS: BP_SYST 137
[2019-09-17] MEDS ORDERED: PSYLLIUM HUSK 1 PKT PACKET PO ONE (13:30)
--- NOTE | 2019-09-17 13:30 | NUR ---
Decrease the rate of IVF to 70 ml/hr as ordered.
--- NOTE | 2019-09-17 15:23 | NUR ---
PM care: Assist patient a CHG bath , skin care, oral care,and change new linens.
[2019-09-17 17:01] VITALS: BP_SYST 133
--- NOTE | 2019-09-17 18:37 | NUR ---
Closing note: Patient is stable, still on Oxygen 15 L/M via non rebreather mask, tolerating well, no sign of distress. On Normal saline + 10 mEq of KCL IVF at 70 ml/hr. Still having poor appetite, he had loose stool x3 in the morning, but not thing in the afternoon.
--- NOTE | 2019-09-17 19:16 | NUR ---
OPENING NOTE: Patient awake sitting in chair at bedside, AOx4. No s/s of acute distress noted. Breathing is even and slightly exerted with activity. Patient attached to non-rebreather mask at 15L/min. Tolerating well with O2 saturation of 94%. IVF infusing well. IV site is patent without redness or infiltration. Bed locked in lowest position, call light with patient. Patient educated on importance and use of call light. Patient verbalized understanding and demonstrated proper use. Bed alarm not indicated as patient is ambulatory with a steady gait. No further needs at this time. Will continue to monitor.
[2019-09-17 20:00] VITALS: BP_SYST 116
[2019-09-17] MEDS: PSYLLIUM HUSK 1 PKT PACKET PO SCH (21:25)
[2019-09-17] MEDS: TAMSULOSIN HCL 0.4 MG CAP PO SCH (21:25)
--- NOTE | 2019-09-17 21:32 | NUR ---
SPOKE WITH PATIENT ABOUT DAUGHTER RECEIVING INFORMATION: Patient stated it was okay for his daughter Aida to receive information about patient status and updates.
--- NOTE | 2019-09-17 23:30 | NUR ---
RT NOTES PT UNABLE TO RENEA 100% NRBM AT THIS TIME. PLACED PT ON HIGH FLOW OXYGEN 50L AT .90 WITH SAT AT .95 PT RENEA WELL. RN MADE AWARE.
--- NOTE | 2019-09-17 23:50 | NUR ---
PATIENT PUT ON HIGH FLOW OXYGEN/SPOKE WITH DR. STREET: Patient had an episode of hypoxia, saturating at 78% on 15L non-rebreather mask. Patient encouraged to deep breathe, saturation went up to 85%. RT called, patient placed on High flow oxygen support at 50L and 90%. Patient now saturating between 91-95%. Patient educated on high flow oxygen, tolerated well, and verbalized understanding. Dr. Street paged and made aware of current patient status. No new orders obtained at this time. Will continue to monitor patient and tolerance to supplemental oxygen. Addendum: 09/18/19 at 0225 by Mckayla Mason RN Patient without complaints of dizziness or being light headed. Patient without complaints of shortness of breath.
[2019-09-18] VITALS: BP_SYST 133
--- NOTE | 2019-09-18 01:15 | NUR ---
ROUNDS: Patient sitting in chair at bedside. No s/s of acute distress noted. Breathing is even and unlabored. Saturation remains at 95%. on High Flow oxygen. No further needs at this time. All safety measures in place. Will continue to monitor.
[2019-09-18] MEDS: POTASSIUM CHLORIDE 10 MEQ in NACL 0.9% 1,000 ML IV SCH ×2 (06:05→16:43)
[2019-09-18] MEDS: INSULIN LISPRO SLIDING SCALE 100 UNITS/ML VIAL (humaLOG) SUBCUT PRN ×3 (06:13→22:23)
--- NOTE | 2019-09-18 06:17 | NUR ---
CLOSING NOTE: Patient sitting in chair at bedside. No s/s of acute distress noted. Breathing is even and slightly exerted with activity. Patient attached to high flow oxygen 50L, 90%. Patient tolerating well saturating between 94-98%. Incentive Spirometer at bedside andn used while patient was awake, 1000mL was reached on my shift. IVF infusing well. IV site is patent without redness or infiltration. Patient aware of NPO status for abdominal ultrasound and expressed frustration. Education given o benefits of remaining NPO for better quality of ultrasound. Patient verbalized understanding. All needs met throughout the shift. All safety/isolation precautions maintained throughout the shift. No further needs at this time. Will continue to monitor until endorsement of care to dayshift nurse.
[2019-09-18] MEDS: ALBUTEROL MDI INHALATION 8 GM INH INH SCH ×3 (06:38→21:06)
[2019-09-18 06:40] VITALS: BP_SYST 133
[2019-09-18 08:00] VITALS: BP_SYST 127
--- NOTE | 2019-09-18 08:00 | NUR ---
ASSUMPTION OF CARE: RECEIVED PT A/A/OX4, DX: INADEQUATE VENTILATION, R/T PNEUMONIA, HYPOXIA, COVID-19, AFEBRILE, VSS, O2 SAT=95% WHILE ON 50L 100% HIGH FLOW, BREATH SOUNDS ARE DIMINISHED, BREATHING UNLABORED, IV SITE INTACT, PATENT, NO REDNESS OR SWELLING, REORIENTED TO UNIT AND CALL LIGHT, TELEPHONE, CALL LIGHT PLACED WITHIN REACH, WILL CONT TO MONITOR AND ASSESS.
[2019-09-18 08:11] LABS: ALBUMIN 2.5 g/dL (3.4-4.8); C-REACTIVE PROTEIN QUANT 8.2 mg/dL (0-0.5); CALCIUM 8.8 mg/dL (8.4-11.0); CREATININE 0.72 mg/dL (0.55-1.30); POTASSIUM 3.9 mmol/L (3.5-5.1); TOTAL BILIRUBIN 0.8 mg/dL (0.0-1.0)
[2019-09-18] MEDS: cefTRIAXone 1 GM in D5W 50 ML IV SCH (10:04)
[2019-09-18] MEDS: PSYLLIUM HUSK 1 PKT PACKET PO SCH ×2 (10:04→22:24)
[2019-09-18] MEDS: ASCORBIC ACID 500 MG TABLET PO SCH ×2 (10:04→22:24)
[2019-09-18] MEDS: DOXYCYCLINE HYCLATE 100 MG CAPSULE PO SCH ×2 (10:04→22:24)
[2019-09-18] MEDS: FAMOTIDINE 20 MG TABLET PO SCH (10:04)
[2019-09-18] MEDS: ENOXAPARIN SODIUM 100 MG/ML SYRINGE SUBCUT SCH ×2 (10:05→22:23)
[2019-09-18] MEDS: CHOLECALCIFEROL (VITAMIN D3) 2,000 UNIT TABLET PO SCH (11:00)
--- NOTE | 2019-09-18 11:00 | NUR ---
DOOR ATTENDANT: MORNING MEDS GIVEN AT THIS TIME, PT WAS NPO THIS MORNING, PENDING ORDER FOR ABD US, MEDS GIVEN AT THIS TIME, TOLERATED WELL, WILL CONT' WITH POC.
[2019-09-18 12:00] VITALS: BP_SYST 110
[2019-09-18] MEDS: DECADRON 4 MG TABLET PO SCH (12:00)
[2019-09-18] MEDS ORDERED: LOPERAMIDE HCL 2 MG CAPSULE PO ONE (12:00)
--- NOTE | 2019-09-18 12:00 | NUR ---
GLUCOSE MONITORING: BLOOD SUGAR CJOGZ=[id number], NO COVERAGE REQUIRED, PT IS TOLERATING DIET WELL, WILL CONT' TO MONITOR AND ASSESS.
--- NOTE | 2019-09-18 13:00 | NUR ---
VISIT: ON UNIT FOR ASSESSMENT OF PT, DISCUSSED POC, NEW ORDERS GIVEN, WILL CONT' TO MONITOR AND ASSESS.
[2019-09-18] MEDS ORDERED: TOCILIZUMAB 400 MG in NS 100 ML IV ONE (13:15)
--- NOTE | 2019-09-18 17:00 | NUR ---
GLUCOSE MONITORING: BLOOD SUGAR YSDZE=283, 2 UNITS HUMALOG INSULIN GIVEN SQ, PT IS TOLERATING DIET WELL, WILL CONT' TO MONITOR AND ASSESS.
--- NOTE | 2019-09-18 19:30 | NUR ---
Opening notes Received report. Patient is resting in bed, laying on his side. No signs of distress noted. Breathing even and unlabored on High Flow 50 L. IV patent and intact, infusing fluids. No needs at this time. Call light with the patient. Safety precautions in place.
[2019-09-18 20:00] VITALS: BP_SYST 113
--- NOTE | 2019-09-18 21:00 | NUR ---
Medications given. Educated the action and side effects of Lovenox. Patient verbalized understanding and tolerated well. Accucheck 167. Insulin per sliding scale. No other needs. call light with the patient. Safety precautions in place. Addendum: 09/19/19 at 0313 by Juliane Ramos RN Encouraged patient to sleep in prone position. Patient stated "When I am sleeping, it is hard for me to sleep on my stomach, I sleep on my side, but in the day time, I can control and I have been sleeping on my stomach."
[2019-09-18 22:11] LABS: MYCOPLASMA PNEUMONIAE IgM <770 U/mL (0-769)
[2019-09-18] MEDS: TAMSULOSIN HCL 0.4 MG CAP PO SCH (22:24)
--- NOTE | 2019-09-18 22:30 | NUR ---
RN rounds Patient sometimes takes oxygen off. Patient desats to 70% on room air. Educated patient the importance of keeping oxygen on and to take deep breaths. Patient verbalized understanding. High flow cannula 50 L placed on patient. O2 sat 95%. Also educated patient to use incentive spirometer. Patient verbalized understanding and able to inspire 1000 ml. No other needs. Call light with the patient. Safety precautions in place.
--- NOTE | 2019-09-19 00:30 | NUR ---
RN rounds Patient sitting up in chair, no signs of distress noted. Breathing even and unlabored on 50 L high flow cannula. O2 sat 95%. VSS. Emptied small amount of soft brown stool from bedside commode. No other needs. Call light with the patient. Safety precautions in place.
[2019-09-19 00:33] VITALS: BP_SYST 135
--- NOTE | 2019-09-19 02:30 | NUR ---
RN rounds Patient sleeping, no signs of distress noted. Breathing even and unlabored on 50 L High flow cannula. 95% O2 sat. Emptied 300 ml from urinal. No other needs. Call light with the patient. Safety precautions in place.
--- NOTE | 2019-09-19 04:58 | NUR ---
RN rounds Patient resting in bed, no signs of distress noted. Breathing even and unlabored. Patient high flow cannula comes off accidently when patient turns. O2 sat goes down to as low as 70%, but will sustain around 80%. Informed patient to place oxygen back on. O2 sat 94%. No other needs. Call light with the patient. Safety precautions in place.
[2019-09-19] MEDS: POTASSIUM CHLORIDE 10 MEQ in NACL 0.9% 1,000 ML IV SCH ×2 (07:05→20:38)
--- NOTE | 2019-09-19 07:09 | NUR ---
Closing notes Patient is sitting in bedside chair, watching TV. No signs of distress noted. Breathing even and unlabored on 50 L High Flow cannula. No SOB, O2 sat 97%. Informed patient to self prone, use incentive spirometer, and take deep breaths. Patient verbalized understanding. IV patent and intact, infusing fluids. All needs met throughout the shift. Call light with the patient. Safety precautions in place. Care endorsed to day shift RN.
--- NOTE | 2019-09-19 07:30 | NUR ---
OPENING NOTES: RECEIVED PATIENT FROM FIRE EQUIPMENT INSPECTOR HELPER NURSE. PATIENT IS AWAKE AND ALERT x4 SITTING IN A CHAIR AT BEDSIDE. PATIENT IS TOLERATING OXYGEN ON HIGH FLOW AT 80%. NO SIGNS OF DISTRESS OR SHORTNESS OF BREATH NOTED. PATIENT DENIES ANY PAIN AT THE MOMENT. IV SITE IS PATENT WITH NO SIGNS OF INFILTRATION NOTED. PATIENT IN STABLE CONDITION. SAFETY, FALL, ASPIRATION, CONTACT AND DROPLET PRECAUTIONS ARE IN PLACE. BED LOCKED IN LOWEST POSITION WITH CALL LIGHT IN REACH. WILL CONTINUE TO MONITOR PATIENT FOR ANY CHANGES.
[2019-09-19] MEDS: ALBUTEROL MDI INHALATION 8 GM INH INH SCH ×3 (07:56→22:00)
[2019-09-19 08:00] VITALS: BP_SYST 112
[2019-09-19 09:14] LABS: ALBUMIN 2.5 g/dL (3.4-4.8); BILIRUBIN,DIRECT 0.3 mg/dL (0.0-0.3); C-REACTIVE PROTEIN QUANT 8.1 mg/dL (0-0.5); CALCIUM 8.5 mg/dL (8.4-11.0); CREATININE 0.73 mg/dL (0.55-1.30); POTASSIUM 3.8 mmol/L (3.5-5.1); TOTAL BILIRUBIN 0.8 mg/dL (0.0-1.0)
[2019-09-19] MEDS: ASCORBIC ACID 500 MG TABLET PO SCH ×2 (09:26→20:00)
[2019-09-19] MEDS: FAMOTIDINE 20 MG TABLET PO SCH (09:26)
[2019-09-19] MEDS: PSYLLIUM HUSK 1 PKT PACKET PO SCH ×2 (09:26→20:00)
[2019-09-19] MEDS: DOXYCYCLINE HYCLATE 100 MG CAPSULE PO SCH ×2 (09:26→20:00)
[2019-09-19] MEDS: CHOLECALCIFEROL (VITAMIN D3) 2,000 UNIT TABLET PO SCH (09:26)
[2019-09-19] MEDS: ENOXAPARIN SODIUM 100 MG/ML SYRINGE SUBCUT SCH ×2 (09:27→20:01)
[2019-09-19] MEDS: cefTRIAXone 1 GM in D5W 50 ML IV SCH (09:45)
--- NOTE | 2019-09-19 10:20 | NUR ---
RN ROUNDS: PATIENT IS AWAKE AND ALERT x4 SITTING IN A CHAIR AT BEDSIDE. BATHING SUPPLIES GIVEN TO PATIENT. PATIENT IS TOLERATING OXYGEN ON HIGH FLOW AT 80%. NO SIGNS OF DISTRESS OR SHORTNESS OF BREATH NOTED. PATIENT DENIES ANY PAIN AT THE MOMENT. IV SITE IS PATENT WITH NO SIGNS OF INFILTRATION NOTED AND RUNNING FLUIDS ORDERED. PATIENT IN STABLE CONDITION. WILL CONTINUE TO MONITOR PATIENT FOR ANY CHANGES.
[2019-09-19] MEDS: DECADRON 4 MG TABLET PO SCH (11:36)
[2019-09-19] MEDS: INSULIN LISPRO SLIDING SCALE 100 UNITS/ML VIAL (humaLOG) SUBCUT PRN ×2 (11:37→17:22)
[2019-09-19 12:35] VITALS: BP_SYST 122
--- NOTE | 2019-09-19 12:37 | NUR ---
RN ROUNDS: PATIENT IS AWAKE AND ALERT x4 SITTING IN A CHAIR AT BEDSIDE. PATIENT IS TOLERATING OXYGEN ON HIGH FLOW AT 80%. NO SIGNS OF DISTRESS OR SHORTNESS OF BREATH NOTED. PATIENT DENIES ANY PAIN AT THE MOMENT. IV SITE IS PATENT WITH NO SIGNS OF INFILTRATION NOTED. PATIENT IN STABLE CONDITION. WILL CONTINUE TO MONITOR PATIENT FOR ANY CHANGES.
--- NOTE | 2019-09-19 13:37 | NUR ---
Alarm Mechanism Adjuster Note Received a voicemail from patient's , Lexis Saldivar [phone], requesting information about disability. Returned the call and left a voicemail message with Social Service contact information. Will remain available.
--- NOTE | 2019-09-19 14:20 | NUR ---
RN ROUNDS: PATIENT IS AWAKE AND ALERT x4 SITTING UP IN A CHAIR AT BEDSIDE. PATIENT DENIES ANY PAIN AT THE MOMENT. PATIENT IS TOLERATING OXYGEN ON HIGH FLOW AT 80% WITH NO SIGNS OF DISTRESS OR SHORTNESS OF BREATH NOTED. IV SITE IS PATENT WITH NO SIGNS OF INFILTRATION NOTED. PATIENT IN STABLE CONDITION. WILL CONTINUE TO MONITOR PATIENT FOR ANY CHANGES.
[2019-09-19 16:00] VITALS: BP_SYST 104
--- NOTE | 2019-09-19 16:02 | NUR ---
RN ROUNDS: PATIENT IS AWAKE AND ALERT x4 SITTING IN A CHAIR AT BEDSIDE. PATIENT IS TOLERATING OXYGEN ON HIGH FLOW AT 80% FIO2. PATIENT DENIES ANY SHORTNESS OF BREATH AT THE MOMENT. PATIENT DENIES ANY PAIN AT THE MOMENT. IV SITE IS PATENT WITH NO SIGNS OF INFILTRATION NOTED. PATIENT IN STABLE CONDITION. WILL CONTINUE TO MONITOR PATIENT FOR ANY CHANGES.
--- NOTE | 2019-09-19 18:31 | NUR ---
CLOSING NOTES: PATIENT IS AWAKE AND ALERT x4 SITTING IN A CHAIR AT BEDSIDE. PATIENT IS TOLERATING OXYGEN ON HIGH FLOW AT 80%. NO SIGNS OF DISTRESS OR SHORTNESS OF BREATH NOTED. PATIENT DENIES ANY PAIN AT THE MOMENT. IV SITE IS PATENT WITH NO SIGNS OF INFILTRATION NOTED. PATIENT IN STABLE CONDITION. SAFETY, FALL, ASPIRATION, CONTACT AND DROPLET PRECAUTIONS REMAINED IN PLACE THROUGHOUT THE SHIFT. BED LOCKED IN LOWEST POSITION WITH CALL LIGHT IN REACH. WILL ENDORSE PATIENT CARE TO ONCOMING TRAINING AND DEVELOPMENT ASSISTANT NURSE.
--- NOTE | 2019-09-19 19:30 | NUR ---
Opening notes Received report. Patient is sitting in bedside chair. No signs of distress noted. Breathing even and unlabored on High Flow 50 L. IV patent and intact, infusing fluids. No needs at this time. Call light with the patient. Safety precautions in place.
[2019-09-19 20:00] VITALS: BP_SYST 108
[2019-09-19] MEDS: TAMSULOSIN HCL 0.4 MG CAP PO SCH (20:00)
--- NOTE | 2019-09-19 21:00 | NUR ---
Medications given. Educated the action and side effects of Vitamin C. Patient verbalized understanding and tolerated well. Accucheck 134. No insulin per sliding scale. Patient using incentive spirometer, able to inspire 1500 ml. No other needs. call light with the patient. Safety precautions in place.
--- NOTE | 2019-09-19 22:30 | NUR ---
RN rounds Patient sitting up in chair, no signs of distress noted. Breathing even and unlabored on 50 L high flow cannula. O2 sat 94%. Emptied small amount of soft brown stool from bedside commode. No other needs. Call light with the patient. Safety precautions in place.
[2019-09-20] VITALS: BP_SYST 108
--- NOTE | 2019-09-20 00:30 | NUR ---
RN rounds Patient sleeping, no signs of distress noted. Breathing even and unlabored on 50 L high flow cannula. O2 sat 95%. VSS. No other needs. Call light with the patient. Safety precautions in place.
--- NOTE | 2019-09-20 03:00 | NUR ---
RN rounds Patient sleeping, no signs of distress noted. Breathing even and unlabored on 50 L High flow cannula. 95% O2 sat. No other needs. Call light with the patient. Safety precautions in place.
--- NOTE | 2019-09-20 05:24 | NUR ---
Spoke to patient's Lexis. Updated on patient condition and plan of care. All questions and concerns addressed. verbalized understanding.
--- NOTE | 2019-09-20 06:56 | NUR ---
Closing notes Patient is sitting in bedside chair, watching TV. No signs of distress noted. Breathing even and unlabored on 50 L High Flow cannula. No SOB, O2 sat 94%. Informed patient to self prone, use incentive spirometer, and take deep breaths. Patient verbalized understanding. Accucheck 99. Encouraged patient to eat breakfast. IV patent and intact, infusing fluids. All needs met throughout the shift. Call light with the patient. Safety precautions in place. Care endorsed to day shift RN.
[2019-09-20] MEDS: ALBUTEROL MDI INHALATION 8 GM INH INH SCH ×3 (07:30→21:17)
[2019-09-20 08:00] VITALS: BP_SYST 111
[2019-09-20 08:00] LABS: ALBUMIN 2.3 g/dL (3.4-4.8); BILIRUBIN,DIRECT 0.2 mg/dL (0.0-0.3); CALCIUM 8.4 mg/dL (8.4-11.0); CREATININE 0.73 mg/dL (0.55-1.30); POTASSIUM 3.8 mmol/L (3.5-5.1); TOTAL BILIRUBIN 0.7 mg/dL (0.0-1.0)
--- NOTE | 2019-09-20 08:00 | NUR ---
Note Pt sitting up in BS chair with high flow O2 on. Pt denies any SOB/resp distress or pain/discomfort at this time. Tele unit attached and intact at this time. IV in left forearm intact and patent infusing IVF's well. No needs noted at this time. Pt has BSC and urinal at bedside for use. Call light within reach.
[2019-09-20] MEDS: PSYLLIUM HUSK 1 PKT PACKET PO SCH ×2 (08:25→20:52)
[2019-09-20] MEDS: FAMOTIDINE 20 MG TABLET PO SCH (08:27)
[2019-09-20] MEDS: cefTRIAXone 1 GM in D5W 50 ML IV SCH (08:27)
[2019-09-20] MEDS: ASCORBIC ACID 500 MG TABLET PO SCH ×2 (08:28→20:48)
[2019-09-20] MEDS: CHOLECALCIFEROL (VITAMIN D3) 2,000 UNIT TABLET PO SCH (08:28)
[2019-09-20] MEDS: ENOXAPARIN SODIUM 100 MG/ML SYRINGE SUBCUT SCH ×2 (08:41→21:16)
--- NOTE | 2019-09-20 09:17 | NUR ---
SS NOTES: RASPBERRY CHECKER received a call from spouse, Lexis Yariel who inquired about disability benefits and requested to drop off paperwork for pt to fill out. Spouse will call SS when in lobby to bring paperwork for patient to fill out.
[2019-09-20 11:33] VITALS: BP_SYST 104
--- NOTE | 2019-09-20 12:00 | NUR ---
Note Pt still sitting up in BS chair moving arms and legs - "I am exercising" states pt "to keep my circulation going". Pt denies any SOb/resp distress or pain/discomfort at this time. Call light within reach. No needs noted at this time.
[2019-09-20] MEDS: DECADRON 4 MG TABLET PO SCH (12:06)
[2019-09-20] MEDS: POTASSIUM CHLORIDE 10 MEQ in NACL 0.9% 1,000 ML IV SCH (13:23)
--- NOTE | 2019-09-20 13:37 | NUR ---
Case mgt: In bed huddle today at 11:30am, RT indicated pt is on 80% high flow oxygen with saturation 91-92%, but that pt was not symptomatic and will continue to monitor pt's 02 level. Remains alert. Continues on IV Remdesivir at this time.
--- NOTE | 2019-09-20 13:48 | NUR ---
Nutrition F/U Admitting Diagnosis: Hypoxia, pneumonia, rule out COVID Medical History Comment: Per MD notes, patient found with COVID-19 infection, viral pneumonia, hypoxia, transaminitis. MD notes that pt must self prone and that pt is clinically improving. 09/19: Negative for C.diff 09/14 COVID-19 Positive 09/11 Subjective Information: Pt remains in isolation and RD visit has been deferred. RD placed phone call to pt's room, x 2 attempts, but no response. Per EMR review, PO intake is fair, had BM this morning and RN notes reports pt exercising inside the room by moving his arms and legs. Metamucil was started on 09/14, but pt refused to take it. Per bed huddle, pt is on HFNC and a/w plasma. Current Diet Order/Nutrition Support: Soft (Low fiber/bland) Pertinent Medications: Remdesivir, Lovenox, VIT C, VIT D-3, zinc, Insulin, Decadron Pertinent Labs 09/19 Na 136WNL, K 3.8WNL, BG 101H, POC BG 105H, BUN 13WNL, CRE 0.73WNL Skin Integrity Comment: Jeffry scale 19, no issues reported per EMR Current % PO: Fair (50-74%) Estimated Energy Expenditure (kcals/day) 7401-6809 kcal/day (30-35 kcal/kg Adj IBW for acute state) Estimated Protein Required (g/day) 69-104 g/day (1-1.5 gm/kg Adj IBW for acute state/geriatric) Estimated Fluid Required (l/day) 2.0-2.4 L/day (1 ml/kcal/day for acute state) Problem/Etiology/Signs/Symptoms Altered nutrition related lab values related to acute illness as evidenced by glucose labs and liver function labs. (*ongoing) Predicted suboptimal protein-energy intake r/t acute illness AEB PO intake meeting <75% of estimated nutrient needs. (*new) Expected Outcomes/Goals Monitor appetite and PO intakes w/ goal of pt meeting at least 75% of estimated nutritional needs, labs trending WNL, normal GI function, and skin integrity/wt maintenance. Dietitian Recommendations * Continue GI Soft per MD orders. *Encourage pt to increase PO intake. *Continue w/ VIT and Zinc coverage. Follow Up Mod Risk: F/U in 3-5 days
--- NOTE | 2019-09-20 13:55 | NUR ---
Dietitian Recommendations * Continue GI Soft per MD orders. *Encourage pt to increase PO intake. *Continue w/ VIT and Zinc coverage. Please see Nutrition F/U note for details. VIJAY, RD
--- NOTE | 2019-09-20 15:00 | NUR ---
Note Pt has been sitting in BS chair all shift watching television and talking on his cellphone. Pt has had his high flow cannula on at 50% all shift. No SOB/resp distress or pain/discomfort noted at this time. No needs noted at this time. Call light within reach.
[2019-09-20 16:00] VITALS: BP_SYST 119
--- NOTE | 2019-09-20 18:40 | NUR ---
Note Pt sitting up in BS chair eating his dinner. No SOB/resp distress or pain/discomfort noted at this time. Pt has had his high flow cannula on at 50% all shift. Tele unit attached and intact all shift. Pt was maintained with safety and isolation precautions all shift. Pt was checked on q1' and PRN all shift for needs and care. IV in left forearm intact and patent infusing IVF's well. No needs noted at this time. Call light within reach.
--- NOTE | 2019-09-20 19:30 | NUR ---
OPENING NOTES RECEIVED PATIENT SITTING IN BED AAO X4. BREATHING NO SOB ON 50L HIGH FLOW OXYGEN. NO C/O PAIN. IVF INFUSING ORDERED WITH IV LINE INTACT AND PATENT. CALL LIGHT WITH IN REACH.
[2019-09-20] MEDS: TAMSULOSIN HCL 0.4 MG CAP PO SCH (20:48)
[2019-09-20] MEDS: DOXYCYCLINE HYCLATE 100 MG CAPSULE PO SCH (20:48)
[2019-09-20 21:12] VITALS: BP_SYST 103
--- NOTE | 2019-09-20 21:17 | NUR ---
MED PASS PATIENT DUE MEDICATIONS GIVEN. VITAL SIGNS STABLE. HS SNACK PROVIDED.
[2019-09-21 00:20] VITALS: BP_SYST 125
--- NOTE | 2019-09-21 00:33 | NUR ---
ROUNDS PATIENT RESTING IN BED. NO DISTRESS NOTED. VITAL SIGN STABLE. BED IN LOWEST LOCKED POSITION. CALL LIGHT WITH IN REACH.
--- NOTE | 2019-09-21 02:42 | NUR ---
ROUNDS PATIENT RESTING IN BED. NO DISTRESS NOTED. 02 SAT 94% ON 50L HF 02. CALL LIGHT WITH IN REACH. SNACK PROVIDED PER PATIENT REQUEST.
[2019-09-21] MEDS: ALBUTEROL MDI INHALATION 8 GM INH INH SCH ×3 (05:43→22:00)
--- NOTE | 2019-09-21 05:45 | NUR ---
AM SUGAR ROUTINE FINGER STICK SUGAR 94. BREATHING NO DISTRESS NOTED.
--- NOTE | 2019-09-21 06:24 | NUR ---
CLOSING NOTES PATIENT NEEDS ATTENDED. TOLERATING HIGH FLOW 02 50L. IVF INFUSING WITH IV LINE INTACT AND PATENT. BED IN LOWEST LOCKED POSITION. CALL LIGHT WITH IN REACH.
[2019-09-21 07:23] LABS: BASOPHILS % (AUTO) 0.2 % (0.0-2.0); EOSINOPHILS # (AUTO) 0.1 K/uL (0.0-0.4); EOSINOPHILS % (AUTO) 0.6 % (0.0-4.0); HEMATOCRIT 42.2 % (36-54); HEMOGLOBIN 14.4 g/dL (14.0-18.0); LYMPHOCYTES # (AUTO) 0.5 K/uL (1.0-5.5); LYMPHOCYTES % (AUTO) 4.3 % (20.5-51.5); MEAN CORPUSCULAR HEMOGLOBIN 30 pg (27-31); MEAN CORPUSCULAR HGB CONC 34 % (32-36); MEAN CORPUSCULAR VOLUME 89 fL (79.0-98.0); MONOCYTES # (AUTO) 0.6 K/uL (0.0-1.0); MONOCYTES % (AUTO) 5.7 % (1.7-9.3); NEUTROPHILS # (AUTO) 9.4 K/uL (1.8-7.7); NEUTROPHILS % (AUTO) 89.2 % (40.0-70.0); PLATELET COUNT (AUTO) 506 K/uL (130-430); RED BLOOD CELL COUNT(AUTO) 4.76 MIL/uL (4.2-6.2); WHITE BLOOD COUNT (AUTO) 10.6 K/uL (4.8-10.8)
[2019-09-21 07:27] VITALS: BP_SYST 125
[2019-09-21 07:37] LABS: ALBUMIN 2.4 g/dL (3.4-4.8); C-REACTIVE PROTEIN QUANT 2.6 mg/dL (0-0.5); CALCIUM 8.4 mg/dL (8.4-11.0); CREATININE 0.76 mg/dL (0.55-1.30); POTASSIUM 3.7 mmol/L (3.5-5.1); TOTAL BILIRUBIN 0.8 mg/dL (0.0-1.0)
[2019-09-21 08:00] VITALS: BP_SYST 100
--- NOTE | 2019-09-21 08:00 | NUR ---
Initial notes sitting in the chair, eating breakfast. denies any chest pain , still on high flow 02 at 50L saturating at 94%. Afebrile. pt stated he feels much better. denies any cough. Uses urinal. Update plan of care. Enc to call for help as needed. maintain on droplet isolation for covid. will monitor.
[2019-09-21] MEDS: PSYLLIUM HUSK 1 PKT PACKET PO SCH ×2 (09:07→20:43)
[2019-09-21] MEDS: FAMOTIDINE 20 MG TABLET PO SCH (09:07)
[2019-09-21] MEDS: ASCORBIC ACID 500 MG TABLET PO SCH ×2 (09:08→20:42)
[2019-09-21] MEDS: CHOLECALCIFEROL (VITAMIN D3) 2,000 UNIT TABLET PO SCH (09:08)
[2019-09-21] MEDS: DOXYCYCLINE HYCLATE 100 MG CAPSULE PO SCH ×2 (09:08→20:44)
[2019-09-21] MEDS: cefTRIAXone 1 GM in D5W 50 ML IV SCH (09:16)
[2019-09-21] MEDS: ENOXAPARIN SODIUM 100 MG/ML SYRINGE SUBCUT SCH ×2 (09:48→21:37)
[2019-09-21 12:00] VITALS: BP_SYST 114
[2019-09-21] MEDS: DECADRON 4 MG TABLET PO SCH (12:08)
--- NOTE | 2019-09-21 12:30 | NUR ---
Notes- Sitting in the chair, just eat lunch. no acute distress noted. Need attended. Seen by Dr. Herbert.
[2019-09-21 16:00] VITALS: BP_SYST 95
--- NOTE | 2019-09-21 16:30 | NUR ---
notes- sitting in the chair, watching tv. denies any pain or discomfort. Enc to call for help as needed
--- NOTE | 2019-09-21 18:14 | NUR ---
Notes- Eating dinner, no complaints. No change in assessment. all needs meet through out shift. will endorse
--- NOTE | 2019-09-21 19:35 | NUR ---
ROUNDS PATIENT SITTING UP IN THE CHAIR, WATCHING TV, NOT IN DISTRESS, VITALS STABLE. DENIES ANY PAIN AND DISCOMFORT AT THIS TIME. ASSESSMENT DONE AND DOCUMENTED. SEE FLOWSHEET. NEEDS ATTENDED TO. SAFETY AND FALL MEASURES IN PLACED. CALL LIGHT PLACED WITHIN REACH.
[2019-09-21 20:00] VITALS: BP_SYST 94
[2019-09-21] MEDS: TAMSULOSIN HCL 0.4 MG CAP PO SCH (20:43)
--- NOTE | 2019-09-21 21:19 | NUR ---
MEDICATIONS DUE MEDICATIONS GIVEN ORDERED, TOLERATED WELL. WILL CONTINUE TO MONITOR.
[2019-09-21] MEDS: INSULIN LISPRO SLIDING SCALE 100 UNITS/ML VIAL (humaLOG) SUBCUT PRN (21:40)
[2019-09-22] VITALS: BP_SYST 113
--- NOTE | 2019-09-22 00:16 | NUR ---
PATIENT RESTING: Patient resting quietly. No acute distress noted. Vital signs within normal range.
--- NOTE | 2019-09-22 02:08 | NUR ---
ROUNDS PATIENT ASLEEP, RESPIRATIONS EVEN AND UNLABORED, WILL CONTINUE TO MONITOR.
--- NOTE | 2019-09-22 04:25 | NUR ---
ROUNDS PATIENT ASLEEP, VITALS STABLE, NO SOB NOTED NOR PAIN AND DISCOMFORT. RESPIRATIONS EVEN AND UNLABORED. WILL CONTINUE TO MONITOR.
[2019-09-22] MEDS: INSULIN LISPRO SLIDING SCALE 100 UNITS/ML VIAL (humaLOG) SUBCUT PRN ×3 (05:38→22:34)
[2019-09-22] MEDS: ALBUTEROL MDI INHALATION 8 GM INH INH SCH ×4 (06:00→23:41)
--- NOTE | 2019-09-22 06:27 | NUR ---
CLOSING NOTES PATIENT AWAKE, NO COMPLAINTS AT THIS TIME, VITALS STABLE. DENIES ANY PAIN AT THIS TIME. ALL NEEDS ATTENDED TO. SAFETY MEASURES MAINTAINED. CALL LIGHT PLACED WITHIN REACH.
[2019-09-22 07:42] LABS: BASOPHILS % (AUTO) 0.2 % (0.0-2.0); EOSINOPHILS # (AUTO) 0.2 K/uL (0.0-0.4); EOSINOPHILS % (AUTO) 1.6 % (0.0-4.0); HEMATOCRIT 43.9 % (36-54); HEMOGLOBIN 14.5 g/dL (14.0-18.0); LYMPHOCYTES # (AUTO) 0.4 K/uL (1.0-5.5); LYMPHOCYTES % (AUTO) 3.3 % (20.5-51.5); MEAN CORPUSCULAR HEMOGLOBIN 30 pg (27-31); MEAN CORPUSCULAR HGB CONC 33 % (32-36); MEAN CORPUSCULAR VOLUME 90 fL (79.0-98.0); MONOCYTES # (AUTO) 0.7 K/uL (0.0-1.0); MONOCYTES % (AUTO) 5.4 % (1.7-9.3); NEUTROPHILS # (AUTO) 11.1 K/uL (1.8-7.7); NEUTROPHILS % (AUTO) 89.5 % (40.0-70.0); PLATELET COUNT (AUTO) 444 K/uL (130-430); RED BLOOD CELL COUNT(AUTO) 4.88 MIL/uL (4.2-6.2); WHITE BLOOD COUNT (AUTO) 12.4 K/uL (4.8-10.8)
--- NOTE | 2019-09-22 07:50 | NUR ---
0750 DECREASED FLOW TO 40LPM PER MD STREET. SPO2 88%, HR 75.
[2019-09-22 08:13] LABS: C-REACTIVE PROTEIN QUANT 1.5 mg/dL (0-0.5); CALCIUM 8.6 mg/dL (8.4-11.0); CHLORIDE 101 mmol/L (98-107); CREATININE 0.78 mg/dL (0.55-1.30); GLUCOSE 91 mg/dL (70-99); POTASSIUM 4.3 mmol/L (3.5-5.1); SODIUM SERUM 132 mmol/L (136-145); UREA NITROGEN, BLOOD 15 mg/dL (8-21)
[2019-09-22 08:19] LABS: ANION GAP < 3 (5-15); GFR AFRICAN AMERICAN 129 mL/min (>90)
[2019-09-22] MEDS: PSYLLIUM HUSK 1 PKT PACKET PO SCH ×2 (08:37→21:00)
--- NOTE | 2019-09-22 09:13 | NUR ---
OPENING NOTES: PATIENT AWAKE, ALERT, ORIENTED, ABLE TO MAKE NEEDS KNOWN. RESPIRATIONS EVEN AND UNLABORED WHILE ON OXYGEN. NO ACTUE DISTRESS NOTED. NO PAIN NOTED. WILL CONTINUE TO MONITOR PATIENT.
[2019-09-22] MEDS: ENOXAPARIN SODIUM 100 MG/ML SYRINGE SUBCUT SCH ×2 (09:33→21:00)
[2019-09-22] MEDS: FAMOTIDINE 20 MG TABLET PO SCH (09:34)
[2019-09-22] MEDS: CHOLECALCIFEROL (VITAMIN D3) 2,000 UNIT TABLET PO SCH (09:35)
[2019-09-22] MEDS: ASCORBIC ACID 500 MG TABLET PO SCH ×2 (09:35→21:00)
[2019-09-22] MEDS: DOXYCYCLINE HYCLATE 100 MG CAPSULE PO SCH ×2 (09:35→21:00)
[2019-09-22] MEDS: cefTRIAXone 1 GM in D5W 50 ML IV SCH (09:40)
[2019-09-22] MEDS: DECADRON 4 MG TABLET PO SCH (11:55)
--- NOTE | 2019-09-22 13:33 | NUR ---
ANALOG IC DESIGN ENGINEER MOSAIC LAYER, DR LU WAS PAGED, RE: CRITICAL K LEVEL. SPOKE TO TAMERA.
[2019-09-22 18:40] VITALS: BP_SYST 92
--- NOTE | 2019-09-22 18:55 | NUR ---
CLOSING NOTES: HOURLY ROUNDING PERFORMED. PATIENT AWAKE, ALERT, ORIENTED. ABLE TO MAKE NEEDS KNOWN. RESPIRATIONS EVEN AND UNLABORED. NO ACUTE DISTRESS NOTED. NO PAIN NOTED. ENDORSED TO DEPARTMENT SECRETARY NURSE SHERRON HORVATH FOR CONTINUITY OF CARE.
--- NOTE | 2019-09-22 19:20 | NUR ---
OPENING NOTES Patient is resting, HOB elevated, no signs of SOB at this time, but patient has had times of SOB when using the commode or urinal. O2 saturation is 96% at high flow 40 flow rate, 90 FiO2, A/O x4, IV site patent, dressings c/d/i. Call light within reach, bed alarm refused after patient education provided. bed at lowest position. Will continue to monitor.
[2019-09-22 20:00] VITALS: BP_SYST 98
[2019-09-22] MEDS: TAMSULOSIN HCL 0.4 MG CAP PO SCH (21:00)
[2019-09-23] VITALS: BP_SYST 119
--- NOTE | 2019-09-23 00:06 | NUR ---
Patient is resting, no signs of distress observed, sitting up in bed, eyes closed. Patient states no needs at this time. Will continue to monitor.
--- NOTE | 2019-09-23 01:50 | NUR ---
Spoke to Dr. Herbert and received orders of Morphine 1mg IVP one time dose for patient for LLQ pain. Call back verification was done per policy.
[2019-09-23] MEDS ORDERED: MORPHINE 2 MG/ML INJ. SYRINGE IVP ONE (02:00)
[2019-09-23] MEDS: ACETAMINOPHEN 325 MG TABLET PO PRN ×2 (02:30→17:19)
--- NOTE | 2019-09-23 02:59 | NUR ---
Provided patient with Tylenol for Left lower quadrant pain as patient's systolic blood pressure is under 100 and did not administer Morphine 1 mg IVP to patient. Morphine 2mg/ 1ml has been discarded with witness of a second nurse.
[2019-09-23] MEDS: ALBUTEROL MDI INHALATION 8 GM INH INH SCH ×4 (06:00→23:39)
--- NOTE | 2019-09-23 07:26 | NUR ---
CLOSING NOTES Patient is resting, sitting in chair next to bed, patient states that he still feels pain when urinating. No signs of SOB, high-flow with 40L 90% FiO2, IV site patent, dressings c/d/i. Call light within reach, bed alarm refused, patient uses call light correctly. bed at lowest position. Will continue to monitor.
[2019-09-23 08:00] VITALS: BP_SYST 90
[2019-09-23] MEDS: DOXYCYCLINE HYCLATE 100 MG CAPSULE PO SCH ×2 (09:00→21:58)
[2019-09-23] MEDS: FAMOTIDINE 20 MG TABLET PO SCH (09:00)
[2019-09-23] MEDS: PSYLLIUM HUSK 1 PKT PACKET PO SCH ×2 (09:00→21:58)
[2019-09-23] MEDS: ENOXAPARIN SODIUM 100 MG/ML SYRINGE SUBCUT SCH (09:00)
[2019-09-23] MEDS: ASCORBIC ACID 500 MG TABLET PO SCH ×2 (09:00→21:58)
[2019-09-23] MEDS: CHOLECALCIFEROL (VITAMIN D3) 2,000 UNIT TABLET PO SCH (09:00)
[2019-09-23] MEDS: cefTRIAXone 1 GM in D5W 50 ML IV SCH (09:00)
[2019-09-23] MEDS: NACL 0.9% 1,000 ML IV SCH ×2 (11:43→21:56)
[2019-09-23] MEDS: DECADRON 4 MG TABLET PO SCH (11:57)
[2019-09-23 12:00] VITALS: BP_SYST 99
--- NOTE | 2019-09-23 14:14 | NUR ---
pt sitting on the chair, pt on proning position at this time.
[2019-09-23 14:36] LABS: BASOPHILS % (AUTO) 0.2 % (0.0-2.0); EOSINOPHILS # (AUTO) 0.4 K/uL (0.0-0.4); EOSINOPHILS % (AUTO) 2.6 % (0.0-4.0); HEMATOCRIT 45.2 % (36-54); HEMOGLOBIN 14.6 g/dL (14.0-18.0); LYMPHOCYTES # (AUTO) 0.6 K/uL (1.0-5.5); LYMPHOCYTES % (AUTO) 4.1 % (20.5-51.5); MEAN CORPUSCULAR HEMOGLOBIN 29 pg (27-31); MEAN CORPUSCULAR HGB CONC 32 % (32-36); MEAN CORPUSCULAR VOLUME 91 fL (79.0-98.0); MONOCYTES # (AUTO) 0.6 K/uL (0.0-1.0); MONOCYTES % (AUTO) 3.9 % (1.7-9.3); NEUTROPHILS # (AUTO) 13.4 K/uL (1.8-7.7); NEUTROPHILS % (AUTO) 89.2 % (40.0-70.0); PLATELET COUNT (AUTO) 420 K/uL (130-430); RED BLOOD CELL COUNT(AUTO) 4.99 MIL/uL (4.2-6.2); RED CELL DISTRIBUTION WIDTH 14.2 % (9.0-15.0); WHITE BLOOD COUNT (AUTO) 15.1 K/uL (4.8-10.8)
[2019-09-23 14:44] LABS: ALBUMIN 2.4 g/dL (3.4-4.8); CALCIUM 8.4 mg/dL (8.4-11.0); CREATININE 0.73 mg/dL (0.55-1.30); POTASSIUM 3.4 mmol/L (3.5-5.1); TOTAL BILIRUBIN 0.7 mg/dL (0.0-1.0)
--- NOTE | 2019-09-23 14:53 | NUR ---
CONSULTATION PAGED/CALLED Reason for Consultation Abdominal pain/acute diverticulitis Person Who was Notified: SHAILA Consulting Physician: Dr. Suarez Preschool Director Specialty: GI Ordering Physician: Dr. JOHNSON
--- NOTE | 2019-09-23 15:35 | NUR ---
ATTENDING MD DR JOHNSON WAS CALLED, RE: ABNORMAL LAB (K - 3.4). SPOKE TO ANIYA.
[2019-09-23 17:00] VITALS: BP_SYST 99
[2019-09-23] MEDS ORDERED: POTASSIUM CHLORIDE 30 MEQ in NS 250 ML IV ONE (17:00)
[2019-09-23] MEDS: LEVOFLOXACIN 500 MG/D5W 100 ML IV SCH (17:18)
--- NOTE | 2019-09-23 19:00 | NUR ---
PT SIGNED CONSENT FOR CT ABD WITH CONTRAST, MARILYN OF RADIOLOGY MADE AWARE.
--- NOTE | 2019-09-23 19:46 | NUR ---
closing notes Pt endorsed to night nurse. pt blood sugar was wnl. bp on the low side, md started bp fluids for bp support. pt continued to be on high flow oxygen at 40 li and 90% fio2. encourage pt to do self proning. pt will have ct of abd and pelvis with contrast. endorsed to night nurse.
[2019-09-23 20:00] VITALS: BP_SYST 127
[2019-09-23] MEDS ORDERED: IOHEXOL 350 mgI/mL, 150 ML INFUS..BTL IV ONE (20:15)
[2019-09-23] MEDS ORDERED: IOHEXOL 100 ML IV ONE (20:15)
[2019-09-23] MEDS: TAMSULOSIN HCL 0.4 MG CAP PO SCH (21:58)
[2019-09-23] MEDS: metroNIDAZOLE 500 mg/NS 100 ML IV SCH (22:00)
--- NOTE | 2019-09-23 22:20 | NUR ---
COMMUNICATION W/ DR. ELIZABETH JOHNSON HAS CALLED AT THIS TIME, SHE VERBALIZED SHE HAS SEEN PATENT'S CT A/P RESULTS AND THAT THE PATIENT HAS DIVERTICULAR PERFORATION. SHE HAS GIVEN NEW ORDERS FOR SURGICAL CONSULT, AM LAB WORK, AND INSTRUCTIONS FOR IF THE PATIENT'S SBP < 90. ALL ORDERS READ BACK, VERIFIED, AND ENTERED.
--- NOTE | 2019-09-23 22:36 | NUR ---
Consultation Paged Reason for Consultation: SX for Diverticular Perforation Was consult called: Y Person who was notified: Pauly Consulting Physician: Dr. Malik Recruitment Intern Ordering Physician: Dr. Herbert.
[2019-09-23] MEDS ORDERED: KETOROLAC TROMETHAMINE 30 MG VIAL IVP PRN (23:15)
[2019-09-24 04:00] VITALS: BP_SYST 112
[2019-09-24] MEDS: metroNIDAZOLE 500 mg/NS 100 ML IV SCH ×3 (06:13→22:00)
[2019-09-24] MEDS: NACL 0.9% 1,000 ML IV SCH ×2 (06:13→21:00)
[2019-09-24 07:10] LABS: BASOPHILS % (AUTO) 0.1 % (0.0-2.0); EOSINOPHILS # (AUTO) 0.1 K/uL (0.0-0.4); EOSINOPHILS % (AUTO) 0.5 % (0.0-4.0); HEMATOCRIT 41.8 % (36-54); LYMPHOCYTES # (AUTO) 0.4 K/uL (1.0-5.5); LYMPHOCYTES % (AUTO) 2.6 % (20.5-51.5); MEAN CORPUSCULAR HEMOGLOBIN 30 pg (27-31); MEAN CORPUSCULAR HGB CONC 34 % (32-36); MEAN CORPUSCULAR VOLUME 90 fL (79.0-98.0); MONOCYTES # (AUTO) 0.6 K/uL (0.0-1.0); MONOCYTES % (AUTO) 4.2 % (1.7-9.3); NEUTROPHILS # (AUTO) 14.2 K/uL (1.8-7.7); NEUTROPHILS % (AUTO) 92.6 % (40.0-70.0); PLATELET COUNT (AUTO) 383 K/uL (130-430); RED BLOOD CELL COUNT(AUTO) 4.67 MIL/uL (4.2-6.2); RED CELL DISTRIBUTION WIDTH 13.9 % (9.0-15.0); WHITE BLOOD COUNT (AUTO) 15.3 K/uL (4.8-10.8)
[2019-09-24 07:20] LABS: INR 1.1 (0.80-1.20); PROTHROMBIN TIME 11.5 SECS (9.5-12.5)
[2019-09-24 07:30] LABS: ALBUMIN 2.3 g/dL (3.4-4.8); C-REACTIVE PROTEIN QUANT 0.6 mg/dL (0-0.5); CALCIUM 8.5 mg/dL (8.4-11.0); CREATININE 0.74 mg/dL (0.55-1.30); POTASSIUM 4.2 mmol/L (3.5-5.1); TOTAL BILIRUBIN 0.7 mg/dL (0.0-1.0)
[2019-09-24 08:00] VITALS: BP_SYST 99
[2019-09-24] MEDS: FAMOTIDINE 20 MG TABLET PO SCH (08:37)
[2019-09-24] MEDS: PSYLLIUM HUSK 1 PKT PACKET PO SCH ×2 (08:37→21:00)
[2019-09-24] MEDS: CHOLECALCIFEROL (VITAMIN D3) 2,000 UNIT TABLET PO SCH (08:38)
[2019-09-24] MEDS: ASCORBIC ACID 500 MG TABLET PO SCH ×2 (08:38→21:00)
[2019-09-24] MEDS: DOXYCYCLINE HYCLATE 100 MG CAPSULE PO SCH ×2 (08:38→21:00)
[2019-09-24] MEDS: D5NS 1,000 ML IV SCH ×2 (08:45→17:59)
--- NOTE | 2019-09-24 09:36 | NUR ---
SPOKE EARLIER WITH DR TOMAS MD MADE AWARE THAT KUB NOT YET DONE. THIS RN HAS BEEN CALLING RADIOLOGY TO FF UP KUB. NO ONE ANSWERS.
[2019-09-24] MEDS ORDERED: *PPN PER PHARMACY XX PRN (11:15)
[2019-09-24 12:00] VITALS: BP_SYST 95
[2019-09-24] MEDS: DECADRON 4 MG TABLET PO SCH (12:00)
[2019-09-24] MEDS: ALBUTEROL MDI INHALATION 8 GM INH INH SCH ×2 (14:00→22:00)
--- NOTE | 2019-09-24 14:23 | NUR ---
DR REYES WAS HERE AND SEEN PT. NEW ORDER WAS GIVEN AND CARRIED OUT.
[2019-09-24] MEDS ORDERED: COMMUNICATION ORDER XX ONE (15:45)
[2019-09-24 16:22] VITALS: BP_SYST 90
[2019-09-24] MEDS: LEVOFLOXACIN 500 MG/D5W 100 ML IV SCH (17:58)
--- NOTE | 2019-09-24 18:29 | NUR ---
CLOSING NOTES, PT HAS BEEN STABLE, SOME EPISODES OF LOW SATURATION. PT GIVEN MDI INHALER AND ENCOURAGED TO DO PRONING AND DEEP SLOW BREATHING EXERCISED DURING THE DAY. PT KEPT NPO EXCEPT MEDS WITH SIPS OF WATER AND SMALL AMOUNT OF ICE CHIPS. PB ON THE 90S BUT PT DOES NOT COMPLAIN OF DIZZINESS. PT SEEN BY DR REYES AND DR JOHNSON.
--- NOTE | 2019-09-24 19:15 | NUR ---
OPENING NOTE REPORT RECEIVED FROM DAYSHIFT NURSE. PATIENT RECEIVED SITTING ON CHAIR AT BEDSIDE, NO S/S OF ACUTE DISTRESS NOTED, HIFLOW ATTACHED PROPERLY, PATIENT TOLERATING WELL, PATIENT DENIES PAIN OR SOB. IVF INFUSING WELL, IV SITE IS PATENT, NO SIGNS OF INFILTRATION OR INFECTION NOTED. SKIN WARM AND DRY TO TOUCH, NO SIGNS OF HYPOGLYCEMIA NOTED. CALL LIGHT WITH PATIENT, DEMONSTRATED PROPER USE. WILL CONTINUE TO MONITOR.
[2019-09-24 20:00] VITALS: BP_SYST 97
[2019-09-24] MEDS: TAMSULOSIN HCL 0.4 MG CAP PO SCH (21:00)
[2019-09-24] MEDS ORDERED: TPN PERIPHERAL 0.0001 ML, SODIUM ACETATE 40 MEQ, POTASSIUM CHLORIDE 20 MEQ, MAGNESIUM S... IV SCH ×8 (21:00)
[2019-09-24] MEDS ORDERED: D5NS 1,000 ML IV SCH (21:00)
--- NOTE | 2019-09-24 21:00 | NUR ---
ROUNDS/PPN HUNG PATIENT SITTING ON CHAIR, NO SIGNS OF DISCOMFORT. CHEST RISE AND FALL EVEN BILATERALLY. PPN HUNG AT THIS TIME. IVF AND PPN INFUSING WELL. CALL LIGHT WITH PATIENT. ALL NEEDS MET.
--- NOTE | 2019-09-24 23:00 | NUR ---
ROUNDS PATIENT IN BED, ASLEEP AT THIS TIME. NO S/S OF ACUTE DISTRESS. HIGHFLOW ATTACHED PROPERLY. IVF AND PPN INFUSING WELL. ALL NEEDS MET. CALL LIGHT WITH PATIENT.
[2019-09-25] VITALS (24 sets, daily range): BP systolic 96–133
--- NOTE | 2019-09-25 01:00 | NUR ---
ROUNDS PATIENT IN BED ASLEEP. NO SIGNS OF DISCOMFORT NOTED. HOB RAISED, HIFLOW ATTACHED PROPERLY. CALL LIGHT WITH PATIENT. BED IS LOCKED AND AT LOWEST POSITION. WILL CONTINUE TO MONITOR.
--- NOTE | 2019-09-25 01:45 | NUR ---
ALOC & HYPOXIA EPISODE PATIENT'S OXYGEN SATURATION THROUGHOUT THE SHIFT WAS WNL, UNTIL SUDDENLY PATIENT'S OXYGEN DROPPED TO 75% ON HEART MONITOR AT 0145. @0145: UPON IMMEDIATE ASSESSMENT PATIENT WAS UNCONSCIOUS, WITH HIS BACK ON THE BED BUT HIS FEET TO THE FLOOR. @0150: RT WAS CALLED IMMEDIATELY. PATIENT'S HIGH FLOW OXYGEN EQUIPMENT WAS IMMEDIATELY READJUSTED WITH HELP OF RT AT BEDSIDE. ONCE PATIENT REGAINED CONSCIOUSNESS, HE STATED "I SHOULDN'T HAVE GONE TO THE BEDSIDE COMMODE BY MYSELF". HE EXPLAINED THAT THE OXYGEN TUBING WAS TOO SHORT TO REACH HIS BEDSIDE COMMODE, WHICH RESULTED IN THE OXYGEN EQUIPMENT SLIPPING OFF HIS FACE, HE THEN BECAME SHORT OF BREATH AND FAINTED BACKWARDS ONTO HIS BED. DESPITE OXYGEN TITRATION AND REPOSITIONING EFFORTS AT THIS TIME, PATIENT'S OXYGEN REMAINED ABOUT 81%. @0214: DUE TO PATIENT'S INABILITY TO TOLERATE PRONING. PATIENT WAS GIVEN A BEDSIDE TABLE IN FRONT OF HIM TO LEAN FORWARD ON, HIS OXYGEN SATURATION JUMPED TO 92% RIGHT AWAY, BUT PATIENT COULD NOT TOLERATE THE POSITION DUE TO ABDOMINAL PAIN. @0234: PATIENT WAS PLACED BACK IN HIGH [place]MI[place] POSITION, NON-REBREATHER MASK ADDED ON TOP OF HIS HIGH FLOW MASK WITH RT ASSIST. PATIENT OXYGEN STEADILY CLIMBED BACK UP TO 92% AFTER 2 MINUTES. @0240: DR. ANATOLIY DUENAS, AWAITING PAGE BACK. RT AND RN ARE CLOSELY MONITORING PATIENT. PATIENT HAS REMAINED ALERT SINCE HE REGAINED CONSCIOUSNESS. OTHERWISE, ALL VITALS TAKEN THROUGHOUT EVENT WERE STABLE AND WNL.
--- NOTE | 2019-09-25 02:45 | NUR ---
COMMUNICATION W/ DR. COPE FOR ALOC & HYPOXIA IT WAS COMMUNICATED TO DR. COPE AT THIS TIME THAT THE PATIENT HAD A SUDDEN EPISODE OF HYPOXIA AND ALOC, THAT HE IS CURRENTLY ON BOTH THE HIGH FLOW MASK AND NON-REBREATHER MASK. MD ORDERED TO TRANSFER THE PATIENT TO PLACE THE PATIENT ON BIPAP, AND TO TRANSFER THE PATIENT TO ICU IN A NEGATIVE PRESSURE ROOM. ORDERS READ BACK, VERIFIED, AND ENTERED. ORDERS COMMUNICATED TO THE DUMPSTER OPERATOR, CHARGE NURSE, AND RT. PATIENT WILL BE TRANSFERRED SOON HIS NEW ROOM IS READY.
--- NOTE | 2019-09-25 03:30 | NUR ---
ASSUMPTION OF CARE BEDSIDE REPORT RECEIVED FROM ALEXANDRU NAIK. BIPAP HAS BEEN PLACED PER RT. AT THIS TIME, PATIENT IS RESTING IN BED, STABLE, NO SIGNS OF SOB. PATIENT VERBALIZES NO PAIN. PLAN OF CARE FOR THE REMAINDER OF THE SHIFT IS COMMUNICATED WITH THE PATIENT. BED IS LOCKED, ALARMED AND AT THE LOWEST LEVEL. FALL, SAFETY, RESPIRATORY, ASPIRATION, AND ISOLATION PRECAUTIONS WILL BE TAKEN THROUGHOUT THE SHIFT. PATIENT WILL BE MONITORED VERY CLOSELY THROUGHOUT THE SHIFT.
--- NOTE | 2019-09-25 03:30 | NUR ---
TRANSFER OF CARE REPORT GIVEN TO ALEXANDRU MCKEE. PATIENT IN BED, AWAKE, NO S/S OF ACUTE DISTRESS, PATIENT DENIES PAIN OR SOB, SPO2 ON TELE MONITOR AT 92, HIGHFLOW ATTACHED PROPERLY, ON 50L, 90%FIO2, AND NONREBREATHER 15L. CALL LIGHT WITH PATIENT. BED ALARM ON. WILL CONTINUE TO MONITOR.
--- NOTE | 2019-09-25 05:30 | NUR ---
NOTE PATIENT IS RESTING IN BED, STABLE, NO SIGNS OF SOB OR RESPIRATORY DISTRESS NOTED. HE VERBALIZES HE IS COMFORTABLE. CALL LIGHT PLACED WITHIN REACH. BED IS LOCKED, ALARMED, AND AT THE LOWEST LEVEL.
[2019-09-25] MEDS: metroNIDAZOLE 500 mg/NS 100 ML IV SCH ×3 (06:17→21:02)
--- NOTE | 2019-09-25 06:25 | NUR ---
COMMUNICATION W/ FAMILY WITH PERMISSION OF THE PATIENT, PATIENT'S ANAYELI BUCKNRE WAS UPDATED ON PATIENT'S CHANGE IN CONDITION, AND HIS TRANSFER TO ICU. ALL 'S CONCERNS WERE ADDRESSED. PATIENT WAS UPDATED ON COMMUNICATION TO HIS .
--- NOTE | 2019-09-25 06:45 | NUR ---
CLOSING NOTE ONCE PATIENT WAS PLACED ON BIPAP, HIS OXYGEN SATURATION HAS BEEN ABOUT 98%. BLOOD SUGAR CHECK AT THIS TIME IS WNL, NO INSULIN COVERAGE WAS GIVEN PER SSI ORDERED BY MD. AT THIS TIME, PATIENT IS RESTING IN BED, STABLE, NO SIGNS OF SOB OR RESPIRATORY DISTRESS NOTED. HE VERBALIZES HE IS COMFORTABLE. CALL LIGHT PLACED WITHIN REACH. BED IS LOCKED, ALARMED, AND AT THE LOWEST LEVEL. FALL, SAFETY, RESPIRATORY, ASPIRATION, AND ISOLATION PRECAUTIONS HAVE BEEN IN PLACE THROUGHOUT THE NIGHT. WILL CONTINUE TO MONITOR UNTIL SHIFT REPORT IS GIVEN AT BEDSIDE TO AM SHIFT.
[2019-09-25 07:04] LABS: BASOPHILS % (AUTO) 0.2 % (0.0-2.0); EOSINOPHILS # (AUTO) 0.2 K/uL (0.0-0.4); EOSINOPHILS % (AUTO) 1.4 % (0.0-4.0); HEMATOCRIT 42.7 % (36-54); HEMOGLOBIN 14.2 g/dL (14.0-18.0); LYMPHOCYTES # (AUTO) 0.4 K/uL (1.0-5.5); LYMPHOCYTES % (AUTO) 2.2 % (20.5-51.5); MEAN CORPUSCULAR HEMOGLOBIN 30 pg (27-31); MEAN CORPUSCULAR HGB CONC 33 % (32-36); MEAN CORPUSCULAR VOLUME 90 fL (79.0-98.0); MONOCYTES # (AUTO) 0.7 K/uL (0.0-1.0); MONOCYTES % (AUTO) 4.1 % (1.7-9.3); NEUTROPHILS # (AUTO) 16.6 K/uL (1.8-7.7); NEUTROPHILS % (AUTO) 92.1 % (40.0-70.0); PLATELET COUNT (AUTO) 322 K/uL (130-430); RED BLOOD CELL COUNT(AUTO) 4.75 MIL/uL (4.2-6.2); RED CELL DISTRIBUTION WIDTH 14.2 % (9.0-15.0); WHITE BLOOD COUNT (AUTO) 18.1 K/uL (4.8-10.8)
--- NOTE | 2019-09-25 07:30 | NUR ---
Opening Note Received plan of care via sbar from endorsing RN.
[2019-09-25 07:34] LABS: ALBUMIN 2.2 g/dL (3.4-4.8); CALCIUM 7.8 mg/dL (8.4-11.0); CREATININE 0.72 mg/dL (0.55-1.30); PHOSPHORUS 3.2 mg/dL (2.7-4.5); POTASSIUM 3.7 mmol/L (3.5-5.1); TOTAL BILIRUBIN 0.6 mg/dL (0.0-1.0)
[2019-09-25] MEDS: ALBUTEROL MDI INHALATION 8 GM INH INH SCH ×3 (07:51→19:59)
--- NOTE | 2019-09-25 08:30 | NUR ---
Dr. Gilbert at bedside. No new orders.
[2019-09-25] MEDS: PSYLLIUM HUSK 1 PKT PACKET PO SCH ×2 (09:24→20:59)
[2019-09-25] MEDS: ASCORBIC ACID 500 MG TABLET PO SCH ×2 (09:25→20:59)
[2019-09-25] MEDS: CHOLECALCIFEROL (VITAMIN D3) 2,000 UNIT TABLET PO SCH (09:25)
[2019-09-25] MEDS: DOXYCYCLINE HYCLATE 100 MG CAPSULE PO SCH (09:36)
[2019-09-25] MEDS: FAMOTIDINE 20 MG TABLET PO SCH (09:36)
--- NOTE | 2019-09-25 10:30 | NUR ---
Received call from Dr. Montiel. Provided update on patient. Received order to change PO meds to IVP. Received order for Decadron 6mg IVP daily and Pepcid 20 mg Daily IVP.
[2019-09-25] MEDS: DECADRON 4 MG TABLET PO SCH (11:59)
--- NOTE | 2019-09-25 12:53 | NUR ---
Nutrition F/U Admitting Diagnosis: Hypoxia, pneumonia, rule out COVID Medical History Comment: Per MD notes, patient found with COVID-19 infection, viral pneumonia, hypoxia, transaminitis. 09/19: Negative for C.diff 09/14 COVID-19 Positive 09/11 Subjective Information: TPN notification received 09/24/19 1115. Pt remains in isolation and RD visit has been deferred. Pt was transferred to ICU over the weekend d/t LOC, now on BiPAP and c/o LLQ pain. CT scan on 09/22 shows complicated sigmoid diverticulitis, seen by who recommends conservative approach w/ NPO status and antibiotics. Pt was then started on TPN. Per RN notes, pt is unable to prone in bed and side table has been provided so pt can lean on it. Current TPN is not yet adequate and RD s/w pharmD for recommendation to increase infusion rate. Current Diet Order/Nutrition Support: NPO x 1 day + D20%AA8.5% at 40ml/hr via peripheral line. PPN provides: 489 kcal, 41gm protein, 960ml fluids daily and GIR 0.7gm CHO/kg/min Meets: 53% of lower end of estimated calorie needs and 88% of upper end of estimated protein needs. Pertinent Medications: VIT C, VIT D-3, zinc, Insulin, Decadron, Toradol, Metamucil Pertinent Labs 8.3 Na 135 L, K 3.7WNL, BG 130 H, POC BG 139 H, BUN 13WNL, CRE 0.72 WNL, WBC 18.1 H Skin Integrity Comment: Jeffry scale 20, no skin issues reported per EMR. Per RN notes, 1+ pitting edema to Bilateral foot Current % PO: N/A on NPO Estimated Energy Expenditure (kcals/day) 5097-4673 kcal/day (30-35 kcal/kg Adj IBW for acute state) Estimated Protein Required (g/day) 69-104 g/day (1-1.5 gm/kg Adj IBW for acute state) Estimated Fluid Required (l/day) 2.0-2.4 L/day (1 ml/kcal/day for acute state) Problem/Etiology/Signs/Symptoms Altered nutrition related lab values related to acute illness as evidenced by glucose labs and liver function labs. (*ongoing) Predicted suboptimal protein-energy intake r/t acute illness AEB PO intake meeting <75% of estimated nutrient needs. (*ongoing, now on NPO and TPN) Expected Outcomes/Goals Monitor TPN tolerance and intakes w/ goal of pt meeting at least 75% of estimated nutritional needs, labs trending WNL, normal GI function, and skin integrity/wt maintenance. Dietitian Recommendations *Continue NPO per MD orders. *Recommend: D20% AA8.5% at 90ml/hr (goal rate) via peripheral line Provides: 1102 kcal, 92gm protein, 2160ml and GIR 1.6gm CHO/kg/min Meets: 53% of lower end of estimated calorie needs and 88% of upper end of estimated protein needs. *Continue w/ VIT and Zinc coverage. Follow Up High Risk: F/U in 2-3 days
--- NOTE | 2019-09-25 13:04 | NUR ---
Dietitian Recommendations *Continue NPO per MD orders. *Recommend: D20% AA8.5% at 90ml/hr (goal rate) via peripheral line Provides: 1102 kcal, 92gm protein, 2160ml and GIR 1.6gm CHO/kg/min Meets: 53% of lower end of estimated calorie needs and 88% of upper end of estimated protein needs. *Continue w/ VIT and Zinc coverage. please see Nutrition F/U note for details. VIJAY, RD
[2019-09-25] MEDS: NACL 0.9% 1,000 ML IV SCH ×2 (14:36→17:47)
--- NOTE | 2019-09-25 15:35 | NUR ---
RT NOTES DECREASED FIO2 TO 80% AT THIS TIME. PT TOLERATING WELL. ALEXANDRU GREENFIELD MADE AWARE. WILL CONTINUE MONITORING.
[2019-09-25] MEDS: LEVOFLOXACIN 500 MG/D5W 100 ML IV SCH (17:47)
[2019-09-25] MEDS: INSULIN LISPRO SLIDING SCALE 100 UNITS/ML VIAL (humaLOG) SUBCUT PRN ×2 (17:50→22:35)
--- NOTE | 2019-09-25 19:21 | NUR ---
Closing Note Provided plan of care via sbar to receiving ALEXANDRU Cruz.
--- NOTE | 2019-09-25 19:22 | NUR ---
Opening Note Received report from AM nurse using SBAR approach.
[2019-09-25] MEDS: TAMSULOSIN HCL 0.4 MG CAP PO SCH (20:59)
[2019-09-25] MEDS ORDERED: TPN PERIPHERAL IV SCH ×9 (21:00)
[2019-09-25] MEDS ORDERED: SODIUM ACETATE IV SCH ×9 (21:00)
[2019-09-25] MEDS ORDERED: POTASSIUM CHLORIDE IV SCH ×9 (21:00)
[2019-09-25] MEDS ORDERED: [UNRECOGNIZED DRUG - OTHER] IV SCH ×9 (21:00)
--- NOTE | 2019-09-25 22:26 | NUR ---
Family Family called and asked for updates. Provided update for the family and answered all questions requested.
[2019-09-26] VITALS (25 sets, daily range): BP systolic 105–150
--- NOTE | 2019-09-26 06:00 | NUR ---
Pulled on Bipap Patient pulled on Bipap tube and it came off but I was able to put the tube back on before it affected patient's saturations. Patient is saturating in the 90's. No signs or symptoms of distress noted. Patient is now resting in bed and understands not to pull on tube. Will continue to monitor.
[2019-09-26 06:56] LABS: BASOPHILS % (AUTO) 0.1 % (0.0-2.0); EOSINOPHILS % (AUTO) 0.1 % (0.0-4.0); HEMATOCRIT 42.8 % (36-54); HEMOGLOBIN 14.1 g/dL (14.0-18.0); LYMPHOCYTES # (AUTO) 0.3 K/uL (1.0-5.5); LYMPHOCYTES % (AUTO) 1.4 % (20.5-51.5); MEAN CORPUSCULAR HEMOGLOBIN 30 pg (27-31); MEAN CORPUSCULAR HGB CONC 33 % (32-36); MEAN CORPUSCULAR VOLUME 90 fL (79.0-98.0); MONOCYTES % (AUTO) 4.9 % (1.7-9.3); NEUTROPHILS # (AUTO) 18.6 K/uL (1.8-7.7); NEUTROPHILS % (AUTO) 93.5 % (40.0-70.0); PLATELET COUNT (AUTO) 263 K/uL (130-430); RED BLOOD CELL COUNT(AUTO) 4.76 MIL/uL (4.2-6.2); RED CELL DISTRIBUTION WIDTH 14.1 % (9.0-15.0); WHITE BLOOD COUNT (AUTO) 19.9 K/uL (4.8-10.8)
--- NOTE | 2019-09-26 07:15 | NUR ---
Closing Note Endorsed report to AM nurse using SBAR approach.
--- NOTE | 2019-09-26 07:20 | NUR ---
Moved to Room 127 Patient is transferred from room 125 to room 127. Patient tolerated the transfer well. No signs or symptoms of distress noted. Patient was on the monitor and oxygen during transfer. o2 in the 90's. Patient is now resting in bed comfortably. Will continue to monitor.
[2019-09-26] MEDS: ALBUTEROL MDI INHALATION 8 GM INH INH SCH ×3 (07:30→19:50)
--- NOTE | 2019-09-26 07:30 | NUR ---
Opening Note received SBAR report from cage shift manager RN, respiratory therapist Roslyn at bedside, patient on BiPAP with FiO2 at 80%, patients O2 Sats 85-88%, RT changed patient to 100% FiO2, patients O2Sats now at 93-94%, patient denies any pain, Dr. Gilbert at bedside examining patient, educated patient on use of call light and asked to call for assistance, patient verbalized understanding, call light in reach, bed in low and locked position, bed alarm on.
[2019-09-26 08:06] LABS: ALBUMIN 2.3 g/dL (3.4-4.8); BILIRUBIN,DIRECT 0.2 mg/dL (0.0-0.3); C-REACTIVE PROTEIN QUANT 1.1 mg/dL (0-0.5); CALCIUM 8.4 mg/dL (8.4-11.0); CREATININE 0.73 mg/dL (0.55-1.30); POTASSIUM 4.1 mmol/L (3.5-5.1); TOTAL BILIRUBIN 0.6 mg/dL (0.0-1.0)
--- NOTE | 2019-09-26 08:46 | NUR ---
Physician Rounds Dr. Jacob at bedside speaking with patient, informed Dr. Jacob that patient is currently on PPN and not receiving oral nutrition, per Dr. Jacob continue patient on PPN and hold oral nutrition at this time.
[2019-09-26] MEDS: ASCORBIC ACID 500 MG TABLET PO SCH ×2 (09:00→21:00)
[2019-09-26] MEDS: CHOLECALCIFEROL (VITAMIN D3) 2,000 UNIT TABLET PO SCH (09:00)
[2019-09-26] MEDS: PSYLLIUM HUSK 1 PKT PACKET PO SCH ×2 (09:00→21:00)
[2019-09-26] MEDS: FAMOTIDINE PF 20 MG/2 ML VIAL IVP SCH (09:12)
--- NOTE | 2019-09-26 09:30 | NUR ---
High Flow O2/Nonrebreather per Dr. Gilbert patient was taken off of BiPAP by RT Mcgowan and placed on high flow O2 at 96% FiO2 and 60L, patient is also on nonrebreather at 15L, patients O2Sat is 91%, patient tolerating well, patient denies any shortness of breath, no acute distress noted, patient sitting upright in bed, provided patient with mouth moisturizer.
--- NOTE | 2019-09-26 09:30 | NUR ---
RT NOTES REMOVED PT FROM BIPAP AT THIS TIME PER DR. COPE WITH RN LONG AT BEDSIDE. PLACED ON HFNC 96% AT 60L/M, PT SPO2 STAYED AT LOW 80s. PT DENIED ANY RESPIRATORY DISTRESS. MONITORED PT FOR FEW MINUTES, SPO2 DOES NOT GET HIGHER THAN 85%. PLACED 15L NRB MASK ON TOP OF HFNC. PT WAS ABLE TO GET SPO2 UP TO 90%. WILL CONTINUE MONITORING.
--- NOTE | 2019-09-26 09:55 | NUR ---
BiPAP patients O2Sat 83% on high flow O2 and nonrebreather, patient Addendum: 09/26/19 at 1031 by Shruti Marrero RN add to above note: patient placed back on BiPaP with previous settings, FiO2 100%, patient tolerating well, O2Sat 91%, patient resting in bed.
[2019-09-26 11:58] LABS: INR 1.2 (0.80-1.20); PROTHROMBIN TIME 11.6 SECS (9.5-12.5)
[2019-09-26] MEDS: DEXAMETHASONE SOD PHOSPHATE 10 MG/ML VIAL IVP SCH (12:31)
--- NOTE | 2019-09-26 13:20 | NUR ---
BiPAP patient removed BiPAP, patient desaturated to low 80's, patient placed back on BiPAP immediately, O2Sats currently 92%, educated patient on importance of oxygen therapy, patient verbalized understanding, toileting needs attended to, assisted patient to reposition, reoriented patient to room, educated patient on use of call light and asked patient to call for assistance, patient verbalized understanding, call light in reach, patient states that he will keep the BiPAP on, patient resting in bed, hemodialysis charge nurse aware.
[2019-09-26] MEDS: metroNIDAZOLE 500 mg/NS 100 ML IV SCH ×2 (14:19→22:00)
--- NOTE | 2019-09-26 14:20 | NUR ---
Physician Rounds rounds with Dr. Herbert, informed her that patient was on high flow O2 with nonrebreather earlier today for about 20 min, informed her that patient desaturated to 83%, informed her that patient is currently on BiPAP at 100% FiO2, currently patients O2Sat is 92%, no additional orders received.
--- NOTE | 2019-09-26 14:51 | NUR ---
Spoke with Physician spoke with Dr. Jacob, per Dr. Nidia lentz for patient to start on lovenox 30mg daily, informed pharmacist Alfonso.
[2019-09-26] MEDS ORDERED: ENOXAPARIN SODIUM 30 MG/0.3 ML SYRINGE SUBCUT ONE (15:00)
--- NOTE | 2019-09-26 16:20 | NUR ---
RN Rounds patient resting in bed, tolerating O2 therapy well on BiPAP at 100% FiO2, O2Sat 94%, patient denies any pain, patient denies any nausea or vomiting.
[2019-09-26] MEDS: LEVOFLOXACIN 500 MG/D5W 100 ML IV SCH (16:37)
[2019-09-26] MEDS: NACL 0.9% 1,000 ML IV SCH (16:37)
[2019-09-26] MEDS: INSULIN LISPRO SLIDING SCALE 100 UNITS/ML VIAL (humaLOG) SUBCUT PRN (16:39)
--- NOTE | 2019-09-26 18:37 | NUR ---
PICC line PICC line RN at bedside for placement of PICC line, time out completed.
--- NOTE | 2019-09-26 19:19 | NUR ---
Closing Note SBAR report given to receiving RN, PICC line RN at bedside placing PICC line, patient on BiPAP at 100% FiO2, patient denies any pain, no acute distress noted, educated patient on use of call light and asked to call for assistance, patient verbalized understanding, call light in reach, bed in low and locked position, bed alarm on, care endorsed to Anthony HORVATH.
--- NOTE | 2019-09-26 19:25 | NUR ---
Opening Note Received report from AM nurse using SBAR approach.
--- NOTE | 2019-09-26 19:40 | NUR ---
PICC Picc line nurse completed the picc line for the patient. Patient tolerated well. Confirmed placement of picc line via XRAY. Picc Line nurse okayed to use the Picc line. Will continue to monitor.
[2019-09-26] MEDS ORDERED: SODIUM ACETATE IV SCH ×10 (21:00)
[2019-09-26] MEDS ORDERED: TPN PERIPHERAL IV SCH ×10 (21:00)
[2019-09-26] MEDS ORDERED: NACL 0.9% 1,000 ML IV SCH (21:00)
[2019-09-26] MEDS: TAMSULOSIN HCL 0.4 MG CAP PO SCH (21:00)
[2019-09-26] MEDS ORDERED: [UNRECOGNIZED DRUG - OTHER] IV SCH ×10 (21:00)
[2019-09-26] MEDS ORDERED: POTASSIUM CHLORIDE IV SCH ×10 (21:00)
[2019-09-26] MEDS: CEFEPIME 0.5 GM in D5W 50 ML IV SCH (21:17)
[2019-09-27] VITALS (25 sets, daily range): BP systolic 100–145
[2019-09-27] MEDS ORDERED: KETOROLAC TROMETHAMINE 30 MG VIAL ONE (02:44)
--- NOTE | 2019-09-27 03:00 | NUR ---
Desaturation Patient pulled on Bipap machine and the tubing came out. RT and nurse in the room. Secured the tubing back to the BIPAP. Patient's saturation is now in the 90's. Educated patient on the importance not to pull on the Bipap tubing. Patient stated understanding and said he will not. Will continue to monitor.
--- NOTE | 2019-09-27 03:30 | NUR ---
CHG Cleaned the patient with CHG wipes and barrera wipes. Patient had a small bowel movement. Replaced new linens and chucks. Patient tolerated well. No signs or symptoms of distress. Will continue to monitor.
[2019-09-27 05:25] LABS: BASOPHILS # (AUTO) 0.1 K/uL (0.0-0.2); BASOPHILS % (AUTO) 0.5 % (0.0-2.0); EOSINOPHILS % (AUTO) 0.1 % (0.0-4.0); HEMATOCRIT 43.7 % (36-54); HEMOGLOBIN 14.4 g/dL (14.0-18.0); LYMPHOCYTES # (AUTO) 0.4 K/uL (1.0-5.5); LYMPHOCYTES % (AUTO) 1.9 % (20.5-51.5); MEAN CORPUSCULAR HEMOGLOBIN 30 pg (27-31); MEAN CORPUSCULAR HGB CONC 33 % (32-36); MEAN CORPUSCULAR VOLUME 90 fL (79.0-98.0); MONOCYTES # (AUTO) 1.4 K/uL (0.0-1.0); MONOCYTES % (AUTO) 6.5 % (1.7-9.3); NEUTROPHILS # (AUTO) 18.8 K/uL (1.8-7.7); PLATELET COUNT (AUTO) 207 K/uL (130-430); RED BLOOD CELL COUNT(AUTO) 4.86 MIL/uL (4.2-6.2); RED CELL DISTRIBUTION WIDTH 14.1 % (9.0-15.0); WHITE BLOOD COUNT (AUTO) 20.7 K/uL (4.8-10.8)
[2019-09-27 05:55] LABS: ALBUMIN 2.4 g/dL (3.4-4.8); CALCIUM 8.4 mg/dL (8.4-11.0); CREATININE 0.55 mg/dL (0.55-1.30); PHOSPHORUS 3.2 mg/dL (2.7-4.5); POTASSIUM 4.1 mmol/L (3.5-5.1); TOTAL BILIRUBIN 0.6 mg/dL (0.0-1.0)
[2019-09-27] MEDS: metroNIDAZOLE 500 mg/NS 100 ML IV SCH ×3 (06:17→21:12)
--- NOTE | 2019-09-27 07:38 | NUR ---
Closing note Endorsed report to AM nurse using SBAR approach.
[2019-09-27] MEDS: ALBUTEROL MDI INHALATION 8 GM INH INH SCH ×3 (08:43→21:55)
[2019-09-27] MEDS: FAMOTIDINE PF 20 MG/2 ML VIAL IVP SCH (08:54)
[2019-09-27] MEDS: ASCORBIC ACID 500 MG TABLET PO SCH ×2 (08:55→20:46)
[2019-09-27] MEDS: CHOLECALCIFEROL (VITAMIN D3) 2,000 UNIT TABLET PO SCH (08:55)
[2019-09-27] MEDS: PSYLLIUM HUSK 1 PKT PACKET PO SCH ×2 (08:55→20:46)
--- NOTE | 2019-09-27 09:00 | NUR ---
Opening note patient resting in bed, a/ox4, denies pain, on Bipap 100% at this time saturation is 92% at this time, PICC line is patent and infusing well, educated the patient on plan of care, call light system and scheduled medication uses and potential side effects, he verbalized understanding, no other needs at this time, encouraged patient to call for assistance, bed in lowest position, three side rails up, call light within reach, fall, aspiration and isolation precautions in place, continuing to monitor the patient. Called pharmacy regarding missing medications, will follow up as needed.
--- NOTE | 2019-09-27 09:19 | NUR ---
Dr. Jacob rounds patient denies abdominal pain. Will follow up with any new orders.
--- NOTE | 2019-09-27 09:50 | NUR ---
Dr. Gilbert rounds assessed patient, per MD lentz to sit patient up in chair today, keep Bipap on, monitor oxygen saturation, will follow up.
[2019-09-27] MEDS: CEFEPIME 0.5 GM in D5W 50 ML IV SCH ×2 (09:54→20:49)
[2019-09-27] MEDS: ENOXAPARIN SODIUM 30 MG/0.3 ML SYRINGE SUBCUT SCH (10:19)
--- NOTE | 2019-09-27 10:20 | NUR ---
Medications/Up in chair patient resting in bed, per Dr. Gilbert, okay to sit patient up in chair, he will desaturate but as long as he is alert and oriented it is okay to assist patient to the chair, patient tolerated well, he had some fatigue after sitting in the chair, continuing to monitor, re-educated patient to call for any assistance, he verbalized understanding. Educated patient on scheduled medications uses and potential side effects, he verbalized understanding and tolerated well, PICC line is intact and infusing well, continuing to monitor the patient, bed in lowest position, two side rails up, call light placed within reach, fall, aspiration and isolation precautions in place, continuing to monitor.
[2019-09-27] MEDS: DEXAMETHASONE SOD PHOSPHATE 10 MG/ML VIAL IVP SCH (11:10)
--- NOTE | 2019-09-27 11:30 | NUR ---
RN rounds/Pt up in chair patient resting in chair at bedside, tolerating sitting up in chair thus far, educated patient on scheduled medication uses and potential side effects, he verbalized understanding, PICC line is patent and infusing well, blood glucose checked, no insulin coverage per MD orders, no other needs at this time, continuing to monitor, bed in lowest position, two side rails up, call light within reach, urinal within reach, fall, aspiration and isolation precautions in place.
--- NOTE | 2019-09-27 11:57 | NUR ---
Dr. Malik rounds assessed patient at bedside, will follow up with any new orders.
--- NOTE | 2019-09-27 12:11 | NUR ---
Back to bed patient calling at this time, requesting to be assisted back into the bed, assisted patient, again he had some fatigue after transferring from chair to bed, it takes a few minutes for the patient to catch his breath again, patient is still on Bipap 100% at this time, head of bed is in high-Cesar's position, PICC line is patent and infusing well, placed belongings and call light within reach, bed in lowest position, three side rails up, fall, aspiration and isolation precautions in place.
--- NOTE | 2019-09-27 12:30 | NUR ---
Dr. Montiel rounds assessed patient at bedside, per MD request please call with Procalcitonin level, will follow up.
--- NOTE | 2019-09-27 15:15 | NUR ---
Follow up Procalcitonin level according to lab the Procalcitonin level is a send out, so they re-ordered it under Miscellaneous, level is still pending at this time, will follow up and if resulted will inform Dr. Montiel per his request.
[2019-09-27] MEDS: INSULIN LISPRO SLIDING SCALE 100 UNITS/ML VIAL (humaLOG) SUBCUT PRN ×2 (16:58→20:51)
--- NOTE | 2019-09-27 17:00 | NUR ---
RN rounds patient resting in bed, still refusing to self-prone, PICC line is patent and infusing well, blood glucose checked, insulin coverage provided per MD orders, no other needs at this time, continuing to monitor, bed in lowest position, two side rails up, call light within reach, urinal within reach, fall, aspiration and isolation precautions in place.
--- NOTE | 2019-09-27 18:58 | NUR ---
Closing note patient resting in bed, awake, no signs of distress, on Bipap 100% at this time, PICC line is intact, infusing well, all needs met, will endorse report to NOC shift nurse, bed in lowest position, three side rails up, call and belongings within reach, fall, aspiration and isolation precautions in place.
--- NOTE | 2019-09-27 19:15 | NUR ---
change of shift.pt.presents quiescent affect.pt.presents o2 therapy via bi-pap.settings reviewed.pt.presents alert loc status. pt.presents picc line/tpn/iv fluids infusing.pt.utilizing the urinal.w/in access of the pt.pt.capable to reposition self.call light w/in reach of the pt.
[2019-09-27] MEDS: TAMSULOSIN HCL 0.4 MG CAP PO SCH (20:45)
[2019-09-27] MEDS ORDERED: SODIUM ACETATE IV SCH ×9 (21:00)
[2019-09-27] MEDS ORDERED: TPN PERIPHERAL IV SCH ×9 (21:00)
[2019-09-27] MEDS ORDERED: POTASSIUM CHLORIDE IV SCH ×9 (21:00)
[2019-09-27] MEDS ORDERED: NACL 0.9% 1,000 ML IV SCH (21:00)
[2019-09-27] MEDS ORDERED: [UNRECOGNIZED DRUG - OTHER] IV SCH ×9 (21:00)
--- NOTE | 2019-09-27 21:00 | NUR ---
2100pmedications administered.all po medications held 2/t npo diet status.tpn/iv fluids maxipmeabx;ivpb administered via the picc line.intact;patent i have flushed the picc line;absent resistance.
--- NOTE | 2019-09-27 22:00 | NUR ---
pt.assessed.v/s assessed values w/in normal limits.bi-pap settings reviewed o2-sat%=90%.picc line intact;patent iv fluids/tpn infusing. i have attended to the urinal;measured/cleaned placed w/in access of the pt.no c/o pain,nausea.pt.capable to reposition self.general status stable.respiratory status stable.call light placed w/in reach of the pt.
[2019-09-28] VITALS (28 sets, daily range): BP systolic 94–156
--- NOTE | 2019-09-28 | NUR ---
pt.assessed.v/s assessed values w/in normal limits.bi-pap settings reviewed o2-sat%=90%.picc line intact;patent iv fluids/tpn infusing. i have assisted the pt. w/ the bedpan.i have changed the sheets/gown,no c/o pain,nausea.pt.capable to reposition self.call light/telephone placed w/in reach of the pt.
--- NOTE | 2019-09-28 02:00 | NUR ---
pt.assessed.v/s assessed values w/in normal limits.bi-pap settings reviewed o2-sat%=93%.no c/o pain,nausea.picc line intact intact;patent iv fluids/tpn infusing.i have attended to the urinal measured placed w/in access of the pt.general status stable. respiratory status stable.call light placed w/in reach of the pt.
--- NOTE | 2019-09-28 03:50 | NUR ---
Assisted Dr. Morales in intubation of pt. @0350 Pt. intubated with size 7.5 ETT @ 25cmLL ETT secured with tape and visualized ET enter vocal cords and checked for bilater breath sounds that were present, chest rise observed.
[2019-09-28] MEDS ORDERED: PROPOFOL DRIP 100 ML IV PRN ×2 (04:30→09:15)
[2019-09-28] MEDS ORDERED: PROPOFOL DRIP 100 ML IV ONE ×2 (04:35→05:42)
[2019-09-28] MEDS: metroNIDAZOLE 500 mg/NS 100 ML IV SCH ×3 (05:12→21:09)
[2019-09-28] MEDS: INSULIN LISPRO SLIDING SCALE 100 UNITS/ML VIAL (humaLOG) SUBCUT PRN (05:39)
[2019-09-28] MEDS ORDERED: MIDAZOLAM HCL IN 0.9 % NACL/PF 50 ML IV ONE (05:55)
[2019-09-28] MEDS ORDERED: MORPHINE I.V. DRIP 100 ML IV ONE (05:56)
[2019-09-28 05:58] LABS: HEMATOCRIT 46.8 % (36-54); HEMOGLOBIN 15.4 g/dL (14.0-18.0); MEAN CORPUSCULAR HEMOGLOBIN 30 pg (27-31); MEAN CORPUSCULAR HGB CONC 33 % (32-36); MEAN CORPUSCULAR VOLUME 90 fL (79.0-98.0); PLATELET COUNT (AUTO) 206 K/uL (130-430); RED BLOOD CELL COUNT(AUTO) 5.19 MIL/uL (4.2-6.2); RED CELL DISTRIBUTION WIDTH 14.4 % (9.0-15.0)
[2019-09-28] MEDS: ALBUTEROL MDI INHALATION 8 GM INH INH SCH ×3 (06:00→21:50)
[2019-09-28 06:09] LABS: CALCIUM 8.4 mg/dL (8.4-11.0); CREATININE 0.63 mg/dL (0.55-1.30); PHOSPHORUS 4.1 mg/dL (2.7-4.5); POTASSIUM 3.6 mmol/L (3.5-5.1)
--- NOTE | 2019-09-28 06:45 | NUR ---
@approximately 0350a pt.presented labored breathing pattern.o2-sat%noted 70-80's.breathing rate tachypnic.i had assisted the pt. to the bsc. pt.was unable to respire wnl.dr.janoo haywood-sydneyt .r/t staff paged foe intubation placement.ett tube placed#7.5cm lip line 25cm.vent settings;tv;600,fio2%=100%,a/c:16,peep:10.pt.presented;sedation/restraints.wrist;bilateral placed,diporvan drip initiated,ms/versed drips ordered subsequent to the administration of the diprovan.o2 sat%=68-74%.pt's telephoned the unit.pt's was apprised of the pt's status.skin/circulation assessed wnl.pt's apprised of the necessity for the application of the restraints.
[2019-09-28 08:40] LABS: ERYTHROCYTE SEDIMENTATION RATE 4 MM/HR (0-15)
[2019-09-28] MEDS ORDERED: SUCCINYLCHOLINE CHLORIDE 20 MG/ML(QUELICIN) IVP ONE (08:42)
[2019-09-28] MEDS ORDERED: ETOMIDATE 20 MG/ 10 ML VIAL (AMIDATE) IVP ONE (08:42)
[2019-09-28] MEDS: CHOLECALCIFEROL (VITAMIN D3) 2,000 UNIT TABLET PO SCH (08:52)
[2019-09-28] MEDS: PSYLLIUM HUSK 1 PKT PACKET PO SCH ×2 (08:52→19:57)
[2019-09-28] MEDS: ASCORBIC ACID 500 MG TABLET PO SCH ×2 (08:52→19:57)
[2019-09-28] MEDS: FAMOTIDINE PF 20 MG/2 ML VIAL IVP SCH (08:52)
[2019-09-28] MEDS: CEFEPIME 0.5 GM in D5W 50 ML IV SCH ×2 (08:52→21:09)
[2019-09-28] MEDS: ENOXAPARIN SODIUM 30 MG/0.3 ML SYRINGE SUBCUT SCH (08:53)
[2019-09-28 09:28] LABS: BAND % (MANUAL) 10 % (0-6)
[2019-09-28 09:29] LABS: ATYPICAL LYMPHOCYTES % 0 % (0-0); BASOPHILS % (MANUAL) 0 % (0-2); EOSINOPHILS % (MANUAL) 0 % (0-7); LYMPHOCYTES % (MANUAL) 2 % (20-46); MONOCYTES % (MANUAL) 5 % (0-11)
[2019-09-28] MEDS: DEXAMETHASONE SOD PHOSPHATE 10 MG/ML VIAL IVP SCH (13:15)
[2019-09-28] MEDS: MICAFUNGIN SODIUM 100 MG in NS 100 ML IV SCH (13:29)
--- NOTE | 2019-09-28 14:57 | NUR ---
Nutrition F/U Admitting Diagnosis: Hypoxia, pneumonia, rule out COVID Medical History Comment: Per MD notes, patient found with COVID-19 infection, viral pneumonia, hypoxia, transaminitis, severe malnutrition. 09/19: Negative for C.diff 09/14 COVID-19 Positive 09/11 Subjective Information: Pt remains in isolation d/t COVID-[address] visit has been deferred. Pt was intubated early this morning, propofol drip initiated. Pt continues abx for bacterial sepsis d/t PNA and diverticulitis. Per GI Note, CT of the A/P will be checked to see if micro perforation has resolved so NGT can be inserted and EN started. Pt is currently on PPN D20%/AA8.5% at 80ml/hr which meets 44% of calorie and 78% of upper end of protein needs. If EN becomes feasible, recommend Vital 1.2 AF at 60ml/hr (goal). This will provide 1728 calories, 108g of protein, and 1168ml of free H20. This will meet 77% of estimated calorie and 104% of upper end of estimated protein needs. Current Diet Order/Nutrition Support: NPO + D20%AA8.5% at 80ml/hr via peripheral line. PPN provides: 979 kcal, 82gm protein, 1920ml fluids daily and GIR 1.5gm CHO/kg/min Meets: 44% of estimated calorie needs and 78% of upper end of estimated protein needs. Pertinent Medications: VIT C, VIT D-3, zinc, Insulin, Decadron, Toradol, Metamucil Pertinent Labs 8.3 Na 135 L, K 3.7WNL, BG 130 H, POC BG 139 H, BUN 13WNL, CRE 0.72 WNL, WBC 18.1 H Skin Integrity Comment: Jeffry scale 19, no skin issues reported per EMR. Per RN notes, 1+ pitting edema to Bilateral foot and bilateral arm NEW Estimated Energy Expenditure (kcals/day) 2241kcal ([id number] for critical illness on vent, 36C, VE 19L/m) Estimated Protein Required (g/day) 69-104 g/day (1-1.5 gm/kg Adj IBW for acute state) Estimated Fluid Required (l/day) 2.0-2.4 L/day (1 ml/kcal/day for acute state) Problem/Etiology/Signs/Symptoms Altered nutrition related lab values related to acute illness as evidenced by glucose labs and liver function labs. (*ongoing) Predicted suboptimal protein-energy intake r/t acute illness AEB PO intake meeting <75% of estimated nutrient needs. (*ongoing, now on NPO and TPN) Expected Outcomes/Goals Monitor TPN tolerance and intakes w/ goal of pt meeting at least 75% of estimated nutritional needs, labs trending WNL, normal GI function, and skin integrity/wt maintenance. Dietitian Recommendations *Continue NPO per MD orders. *Recommend: D20% AA8.5% at 90ml/hr (goal rate) via peripheral line Provides: 1102 kcal, 92gm protein, 2160ml and GIR 1.6gm CHO/kg/min Meets: 53% of lower end of estimated calorie needs and 88% of upper end of estimated protein needs. *Continue w/ VIT and Zinc coverage. *If TF becomes feasible, recommend Vital 1.2 AF at 60ml/hr (goal) Follow Up High Risk: F/U in 2-3 days
--- NOTE | 2019-09-28 14:59 | NUR ---
Dietitian Recommendations *Continue NPO per MD orders. *Recommend: D20% AA8.5% at 90ml/hr (goal rate) via peripheral line Provides: 1102 kcal, 92gm protein, 2160ml and GIR 1.6gm CHO/kg/min Meets: 53% of lower end of estimated calorie needs and 88% of upper end of estimated protein needs. *Continue w/ VIT and Zinc coverage. *If TF becomes feasible, recommend Vital 1.2 AF at 60ml/hr (goal) Please see Nutrition F/U for further details. LT, RD
[2019-09-28] MEDS: TAMSULOSIN HCL 0.4 MG CAP PO SCH (19:57)
--- NOTE | 2019-09-28 20:30 | NUR ---
Pts (Lexis) called wanting to take pts laptop and reverberatory skimmer home. Informed her that I will look for it and give her a call back.
[2019-09-28] MEDS ORDERED: POTASSIUM CHLORIDE IV SCH ×10 (21:00)
[2019-09-28] MEDS ORDERED: TPN PERIPHERAL IV SCH ×10 (21:00)
[2019-09-28] MEDS ORDERED: SODIUM ACETATE IV SCH ×10 (21:00)
[2019-09-28] MEDS ORDERED: [UNRECOGNIZED DRUG - OTHER] IV SCH ×10 (21:00)
--- NOTE | 2019-09-28 21:50 | NUR ---
Contacted pts , Lexis ([phone]) to inform her that laptop and large animal husbandry technician were in pts room, placed into a belongings bag and is ready for warehouse order picker. She states that she will pick them up in the AM. To be endorsed to oncoming AM shift. Addendum: 09/28/19 at 2207 by Dany Estrada RN Laptop and large animal husbandry technician will be in chair at pts bedside.
--- NOTE | 2019-09-28 23:15 | NUR ---
Pt repositioned, pt began to move legs and squirm, then calmed down. SPO2 decreased to 74% and B/P 81/60. Versed drip decreased to 3 mg/hr and Morphine decreased to 2 mg/hr. RT notified and at bedside. No changes in Vent settings. Addendum: 09/29/19 at 0005 by Dany Estrada RN Change in rate of both Morphine and Versed witnessed by Mark Saldivar RN.
--- NOTE | 2019-09-28 23:20 | NUR ---
SPO2 slowly increased to 80%, B/P 110/57. Changed position of SPO2 probe from LHA to Right ear, SPO2 increased to 88%. Pt resting calmly.
[2019-09-29] VITALS (36 sets, daily range): BP systolic 106–149
--- NOTE | 2019-09-29 01:00 | NUR ---
Pt resting calmly, VSS, NAD. SPO2 92%, no change in vent settings.
[2019-09-29] MEDS: INSULIN LISPRO SLIDING SCALE 100 UNITS/ML VIAL (humaLOG) SUBCUT PRN ×2 (01:36→17:50)
--- NOTE | 2019-09-29 03:00 | NUR ---
Resting quietly, SPO2 96%, NAD.
--- NOTE | 2019-09-29 05:00 | NUR ---
Pt moving extremities with reposition attempt. Versed drip increased to 4 mg/hr and Morphine drip increased to 3 mg/hr.
[2019-09-29] MEDS: MIDAZOLAM HCL IN 0.9 % NACL/PF 50 ML IV PRN (05:10)
[2019-09-29 05:30] LABS: MEAN CORPUSCULAR HEMOGLOBIN 30 pg (27-31); RED BLOOD CELL COUNT(AUTO) 4.48 MIL/uL (4.2-6.2)
--- NOTE | 2019-09-29 05:30 | NUR ---
CHG bath given. Pt tolerated well.
[2019-09-29] MEDS: ALBUTEROL MDI INHALATION 8 GM INH INH SCH ×2 (06:00→15:15)
[2019-09-29 06:16] LABS: ALBUMIN 2.1 g/dL (3.4-4.8); C-REACTIVE PROTEIN QUANT 1.4 mg/dL (0-0.5); CALCIUM 7.8 mg/dL (8.4-11.0); CREATININE 0.71 mg/dL (0.55-1.30); PHOSPHORUS 3.9 mg/dL (2.7-4.5); POTASSIUM 4.4 mmol/L (3.5-5.1); TOTAL BILIRUBIN 0.4 mg/dL (0.0-1.0)
[2019-09-29 06:29] LABS: BASOPHILS % (AUTO) 0.1 % (0.0-2.0); EOSINOPHILS % (AUTO) 0.1 % (0.0-4.0); HEMATOCRIT 40.5 % (36-54); HEMOGLOBIN 13.3 g/dL (14.0-18.0); LYMPHOCYTES # (AUTO) 0.6 K/uL (1.0-5.5); LYMPHOCYTES % (AUTO) 3.1 % (20.5-51.5); MEAN CORPUSCULAR HGB CONC 33 % (32-36); MEAN CORPUSCULAR VOLUME 90 fL (79.0-98.0); MONOCYTES # (AUTO) 1.1 K/uL (0.0-1.0); MONOCYTES % (AUTO) 5.4 % (1.7-9.3); NEUTROPHILS # (AUTO) 17.8 K/uL (1.8-7.7); NEUTROPHILS % (AUTO) 91.3 % (40.0-70.0); PLATELET COUNT (AUTO) 137 K/uL (130-430); RED CELL DISTRIBUTION WIDTH 14.5 % (9.0-15.0); WHITE BLOOD COUNT (AUTO) 19.5 K/uL (4.8-10.8)
--- NOTE | 2019-09-29 07:15 | NUR ---
Pt report given to Guadalupe Cabezas RN.
[2019-09-29] MEDS: CEFEPIME 0.5 GM in D5W 50 ML IV SCH ×2 (08:03→22:00)
[2019-09-29] MEDS: CHOLECALCIFEROL (VITAMIN D3) 2,000 UNIT TABLET PO SCH (08:04)
[2019-09-29] MEDS: ASCORBIC ACID 500 MG TABLET PO SCH (08:04)
[2019-09-29] MEDS: PSYLLIUM HUSK 1 PKT PACKET PO SCH (08:04)
[2019-09-29] MEDS: FAMOTIDINE PF 20 MG/2 ML VIAL IVP SCH (08:04)
[2019-09-29] MEDS: ENOXAPARIN SODIUM 30 MG/0.3 ML SYRINGE SUBCUT SCH (08:06)
[2019-09-29] MEDS ORDERED: TPN PERIPHERAL IV SCH ×18 (09:00→21:00)
[2019-09-29] MEDS ORDERED: SODIUM ACETATE IV SCH ×18 (09:00→21:00)
[2019-09-29] MEDS ORDERED: POTASSIUM CHLORIDE IV SCH ×18 (09:00→21:00)
[2019-09-29] MEDS ORDERED: [UNRECOGNIZED DRUG - OTHER] IV SCH ×18 (09:00→21:00)
--- NOTE | 2019-09-29 10:20 | NUR ---
NG TUBE PLACEMENT: # 16 FR NG tube placed to left nare. Placement checked by auscultation of instilled air into stomach and aspiration of gastric contents. Tubing taped in place to prevent dislodging. Patient tolerated well.
--- NOTE | 2019-09-29 10:35 | NUR ---
X-ray at bedside.
--- NOTE | 2019-09-29 10:38 | NUR ---
Dietary called for tube feeding.
--- NOTE | 2019-09-29 10:40 | NUR ---
Dr. Jacob states to hold feeding until bowel perforation is ruled out. Radiology called for CT.
--- NOTE | 2019-09-29 11:04 | NUR ---
RT NOTE: 1104 Pt found on 90% FiO2. Changed by Dr Gilbert. Will continue to titrate FiO2 as tolerated by patient. Addendum: 09/29/19 at 1217 by Cindy Patrick RT Amended: Links added.
[2019-09-29] MEDS: MICAFUNGIN SODIUM 100 MG in NS 100 ML IV SCH (12:27)
[2019-09-29] MEDS: DEXAMETHASONE SOD PHOSPHATE 10 MG/ML VIAL IVP SCH (12:27)
[2019-09-29] MEDS: MORPHINE I.V. DRIP 100 ML IV PRN (12:28)
--- NOTE | 2019-09-29 14:30 | NUR ---
CONVALESCENT PLASMA INITIATION: Consent signed per patient agreeing to administration of blood. Blood has been type and crossmatched. Blood sent from blood bank. Information on unit of blood checked against patient wristband at bedside by two nurses. All information matches. Patient or responsible libertarian informed of potential complications associated with blood transfusion. Informed of possible transfusion reaction symptoms. Aware of need to notify nurse at once of itching, shortness of breath, flushing, feeling of impending doom, or other symptoms not previously present. Vital signs taken within 5 minutes prior to initiation of transfusion. RN will remain with patient for first 15 minutes of transfusion at which time vital signs will be re-assessed.
[2019-09-29] MEDS: metroNIDAZOLE 500 mg/NS 100 ML IV SCH ×2 (14:58→21:59)
--- NOTE | 2019-09-29 19:08 | NUR ---
Report given to ALEXANDRU Wright for continuation of care. All needs endorsed.
--- NOTE | 2019-09-29 20:30 | NUR ---
Pt status update provided to pt daughter (Nia).
[2019-09-29] MEDS: NACL 0.9% 1,000 ML IV SCH ×2 (21:00)
[2019-09-30] VITALS (32 sets, daily range): BP systolic 124–165
[2019-09-30] MEDS: ALBUTEROL MDI INHALATION 8 GM INH INH SCH ×4 (00:06→22:24)
--- NOTE | 2019-09-30 01:42 | NUR ---
Gurgling sounds heard to pts throat per Ventilator Inspiration. SPO2 decreased to 80%. Thick white secretions suctioned from oropharynx. No secretions per ETT suction. RT notified and at bedside. Per RT, sound was r/t cuff leak. Cuff reinflated per RT, no further gurgling sounds noted. SPO2 increased to 100%. VSS, NAD.
--- NOTE | 2019-09-30 01:50 | NUR ---
FiO2 increased to 100% per RT.
[2019-09-30] MEDS: PSYLLIUM HUSK 1 PKT PACKET PO SCH ×3 (02:00→21:00)
[2019-09-30] MEDS: ASCORBIC ACID 500 MG TABLET PO SCH ×3 (02:00→21:10)
[2019-09-30] MEDS: TAMSULOSIN HCL 0.4 MG CAP PO SCH ×2 (02:00→21:10)
--- NOTE | 2019-09-30 02:00 | NUR ---
Pt resting quietly, Pt sedated, even and non-labored respirations, no further gurgling sounds noted to throat.
[2019-09-30] MEDS: INSULIN LISPRO SLIDING SCALE 100 UNITS/ML VIAL (humaLOG) SUBCUT PRN ×3 (02:05→13:35)
--- NOTE | 2019-09-30 05:30 | NUR ---
FiO2 decreased to 70% per RT. SPO2 94%.
--- NOTE | 2019-09-30 06:08 | NUR ---
MD HENRIQUE JOHNSON [phone] SPOKE WITH MUKESH
--- NOTE | 2019-09-30 06:15 | NUR ---
Residual 320 mL Dark Green fluid. Tube feedings held. Dr. Herbert notified and new order to stop Tube feedings.
[2019-09-30] MEDS: MIDAZOLAM HCL IN 0.9 % NACL/PF 50 ML IV PRN (06:18)
[2019-09-30] MEDS: metroNIDAZOLE 500 mg/NS 100 ML IV SCH ×3 (06:37→21:09)
--- NOTE | 2019-09-30 06:40 | NUR ---
Dr. Herbert calls back, order received for Abdominal KUB. Order entered and Radiology notified.
[2019-09-30 06:51] LABS: BASOPHILS % (AUTO) 0.2 % (0.0-2.0); HEMATOCRIT 40.1 % (36-54); LYMPHOCYTES # (AUTO) 0.4 K/uL (1.0-5.5); LYMPHOCYTES % (AUTO) 2.1 % (20.5-51.5); MEAN CORPUSCULAR HEMOGLOBIN 30 pg (27-31); MEAN CORPUSCULAR HGB CONC 33 % (32-36); MEAN CORPUSCULAR VOLUME 91 fL (79.0-98.0); MONOCYTES # (AUTO) 1.1 K/uL (0.0-1.0); MONOCYTES % (AUTO) 6.1 % (1.7-9.3); NEUTROPHILS # (AUTO) 16.8 K/uL (1.8-7.7); NEUTROPHILS % (AUTO) 91.6 % (40.0-70.0); PLATELET COUNT (AUTO) 106 K/uL (130-430); RED BLOOD CELL COUNT(AUTO) 4.39 MIL/uL (4.2-6.2); RED CELL DISTRIBUTION WIDTH 13.9 % (9.0-15.0); WHITE BLOOD COUNT (AUTO) 18.3 K/uL (4.8-10.8)
--- NOTE | 2019-09-30 07:10 | NUR ---
Radiology at bedside performing KUB.
[2019-09-30 07:13] LABS: CALCIUM 7.9 mg/dL (8.4-11.0); CREATININE 0.4 mg/dL (0.55-1.30); PHOSPHORUS 3.4 mg/dL (2.7-4.5); TOTAL BILIRUBIN 0.4 mg/dL (0.0-1.0)
[2019-09-30 08:14] LABS: POTASSIUM 4.7 mmol/L (3.5-5.1)
[2019-09-30] MEDS: ENOXAPARIN SODIUM 30 MG/0.3 ML SYRINGE SUBCUT SCH (08:42)
[2019-09-30] MEDS: FAMOTIDINE PF 20 MG/2 ML VIAL IVP SCH (08:44)
[2019-09-30] MEDS: CHOLECALCIFEROL (VITAMIN D3) 2,000 UNIT TABLET PO SCH (08:44)
[2019-09-30] MEDS: CEFEPIME 0.5 GM in D5W 50 ML IV SCH ×2 (08:48→21:10)
[2019-09-30] MEDS: DEXAMETHASONE SOD PHOSPHATE 10 MG/ML VIAL IVP SCH (12:21)
[2019-09-30] MEDS: MICAFUNGIN SODIUM 100 MG in NS 100 ML IV SCH (12:21)
--- NOTE | 2019-09-30 14:37 | NUR ---
Wire Winder: Family for pt. is waiting in the front wanting to speak to someone. CLAMP FORKLIFT OPERATOR met with pt.s family. Lexis, was calm , but expressed a great deal of concern for her , Harvey. She said there are a lot of issues and points of concern. She stated there has been such a lack of communication. When they call to get an update, they speak to Rns. who give inconsistent info re. pt. and his care. At one point, they were give info on the wrong pt. and the Rn at the time stated "Oh wait, this info is for another pt". There has not been any communication between them and pts. doctors. She only just spoke to Dr. Herbert once. When they call they , and pts. two daughters, have been told patient has received care, but then they say oh no he has not. They have had terrible interactions with Denia Willett. stated pt. feel the other night and was transferred to ICU. She never receive a phone call with this info. She feels since husbands been here as [facility], she feels his health has declined. She stated she wants to know how to go about transferring him to another larger hospital. stated Dr. Herbert has shared with her they have done all they can to help in care for pt. Dr. Herbert wants to see if pts. responds to the medication, Remdisivir. The family said a lot of praises for Rn. Elizabeth, but reiterated, they have had bad interactions with Denia Willett. CLAMP FORKLIFT OPERATOR asked if she was going to call the Rn. to see how pt. is today. She said she was. CLAMP FORKLIFT OPERATOR asked if she can request the DrKe call her after rounds. CLAMP FORKLIFT OPERATOR also asked if she could contact their insurance to see how a transfer could take place. CLAMP FORKLIFT OPERATOR will conference [facility] and also speak to head rn in ICU. thanked CLAMP FORKLIFT OPERATOR for her time. CLAMP FORKLIFT OPERATOR checked in with the family as they were still sitting outside. CLAMP FORKLIFT OPERATOR asked if they had a chance to get an update from the ICU. Family is very concerned for the care of pt. They stated they have spoken to the Rn and that they are waiting for a phone call from Dr. Montiel. They thanked CLAMP FORKLIFT OPERATOR. CLAMP FORKLIFT OPERATOR met with Head Rn. Maier shared the above info with Rn. Maier. She will speak to Rn. Sup. Darrin Glez to share these concerns with her. Livier understands pt.s , Lexis's concerns and will look into them further. OFELIA will also share these concerns with her puttying and calking supervisor. CLAMP FORKLIFT OPERATOR will remain available as needed. Addendum: 09/30/19 at 1515 by Dorothea GILBERT Wire Winder : Livier called OFELIA Maier called OFELIA to share with her that Dr. Herbert will call family today as she is at the hospital now.
--- NOTE | 2019-09-30 19:20 | NUR ---
Pt report received. Pt resting quietly, VSS, NAD. Pt only responsive to touch by attempting to move BUE and moves BLE. Soft wrist restraints in place to BUE, non-restrictive, skin intact. NGT secure to left nares, patent per air bolus auscultation, no stomach contents aspirated. ETT secure with Vent settings: PS, R 25, PEEP 12, FiO2 70%. SPO2 at 96%. F/C secure and patent, clear yellow urine. PICC line to RUE with Versed infusing at 4 mg/hr and Morphine at 3 mg/hr. NS at 20 mL/hr and TPN at 92 mL/hr. 20 GA PIV to LAC patent and secure. Foam dressing to sacrum.
[2019-09-30] MEDS ORDERED: [UNRECOGNIZED DRUG - OTHER] IV SCH ×10 (21:00)
[2019-09-30] MEDS ORDERED: SODIUM ACETATE IV SCH ×10 (21:00)
[2019-09-30] MEDS ORDERED: TPN PERIPHERAL IV SCH ×10 (21:00)
[2019-09-30] MEDS ORDERED: POTASSIUM CHLORIDE IV SCH ×10 (21:00)
[2019-09-30] MEDS: NACL 0.9% 1,000 ML IV SCH (21:05)
--- NOTE | 2019-09-30 22:00 | NUR ---
While repositioning pt, Pt began to move about in bed and put leg over side rail. Pts leg placed back into bed with no s/s injury or redness. Versed Drip increased to 4 mg/hr as witnessed by Hal Beaulieu RN. Pt becomes calm and relaxed. SPO2 decreased to 90%. After pt became relaxed, SPO2 increased to 95%.
[2019-10-01] VITALS (35 sets, daily range): BP systolic 124–177
[2019-10-01] MEDS: MORPHINE I.V. DRIP 100 ML IV PRN
[2019-10-01] MEDS: MIDAZOLAM HCL IN 0.9 % NACL/PF 50 ML IV PRN ×3 (00:01→23:32)
--- NOTE | 2019-10-01 00:05 | NUR ---
Spoke with Lexis, pts ([phone]). Pt update given.
[2019-10-01] MEDS: INSULIN LISPRO SLIDING SCALE 100 UNITS/ML VIAL (humaLOG) SUBCUT PRN ×4 (00:31→23:32)
--- NOTE | 2019-10-01 02:00 | NUR ---
Pt resting quietly, VSS, NAD. No changes in vent settings. IVFs infusing without difficulty.
--- NOTE | 2019-10-01 02:30 | NUR ---
PIV LAC leaking, good blood return. PIV discontinued with angiocath tip intact, pressure dressing applied.
--- NOTE | 2019-10-01 05:00 | NUR ---
Pt resting quietly, VSS, NAD. No changes in vent settings. IVFs infusing without difficulty.
[2019-10-01 05:34] LABS: ALANINE AMINOTRANSFERASE 66 U/L (12-78); ALBUMIN 2.2 g/dL (3.4-4.8); ASPARTATE AMINOTRANSFERASE 27 U/L (10-37); C-REACTIVE PROTEIN QUANT 0.7 mg/dL (0-0.5); CALCIUM 8.3 mg/dL (8.4-11.0); CHLORIDE 97 mmol/L (98-107); GLUCOSE 123 mg/dL (70-99); PHOSPHORUS 3.9 mg/dL (2.7-4.5); POTASSIUM 4.6 mmol/L (3.5-5.1); SODIUM SERUM 132 mmol/L (136-145); TOTAL BILIRUBIN 0.4 mg/dL (0.0-1.0); UREA NITROGEN, BLOOD 13 mg/dL (8-21)
[2019-10-01] MEDS: metroNIDAZOLE 500 mg/NS 100 ML IV SCH ×3 (05:44→21:04)
[2019-10-01 06:17] LABS: GFR AFRICAN AMERICAN 175 mL/min (>90)
[2019-10-01 06:18] LABS: ANION GAP < 3 (5-15)
[2019-10-01] MEDS: ALBUTEROL MDI INHALATION 8 GM INH INH SCH ×3 (07:16→22:00)
--- NOTE | 2019-10-01 07:20 | NUR ---
RT NOTE: 0720 decreased FiO2 to 70%. Pt tolerating change well. SpO2 is between 95-97%. Will continue to titrate as tolerated by pt. RN made aware. Addendum: 10/01/19 at 0834 by Cindy Patrick RT Amended: Links added.
--- NOTE | 2019-10-01 07:20 | NUR ---
Pt report given to oncoming RN.
--- NOTE | 2019-10-01 07:20 | NUR ---
Opening Note Patient report received via SBAR from endorsing RN
[2019-10-01] MEDS: FAMOTIDINE PF 20 MG/2 ML VIAL IVP SCH (07:58)
[2019-10-01] MEDS: CEFEPIME 0.5 GM in D5W 50 ML IV SCH ×2 (07:58→21:03)
[2019-10-01] MEDS: PSYLLIUM HUSK 1 PKT PACKET PO SCH ×2 (07:59→21:04)
[2019-10-01] MEDS: CHOLECALCIFEROL (VITAMIN D3) 2,000 UNIT TABLET PO SCH (07:59)
[2019-10-01] MEDS: ASCORBIC ACID 500 MG TABLET PO SCH ×2 (07:59→21:04)
[2019-10-01] MEDS: ENOXAPARIN SODIUM 30 MG/0.3 ML SYRINGE SUBCUT SCH (07:59)
--- NOTE | 2019-10-01 09:20 | NUR ---
MD ROUND Dr. Desai in to see patient, physician entered orders
--- NOTE | 2019-10-01 09:30 | NUR ---
ROUND Dr. Gilbert in to see patient, physician entered orders
--- NOTE | 2019-10-01 09:35 | NUR ---
RT Note: 929 Vent checked and found FiO2 at 65%, changed by Dr Gilbert. Pt is tolerating FiO2 change maintaining SpO2 at low 90s. Will continue to monitor and titrate as tolerated by pt. RN made aware of changes. Addendum: 10/01/19 at 1030 by Cindy Patrick RT Amended: Links added.
[2019-10-01] MEDS ORDERED: METOCLOPRAMIDE HCL 10 MG/2 ML VIAL IVP ONE (10:00)
[2019-10-01] MEDS ORDERED: MINERAL OIL 30 ML UDC PO ONE (10:00)
--- NOTE | 2019-10-01 11:20 | NUR ---
RT Note: 1120 Decreased FiO2 to 60%. SpO2 stays between 93-95%. Will continue to monitor pt. Addendum: 10/01/19 at 1140 by Cindy Patrick RT Amended: Links added.
[2019-10-01] MEDS: DEXAMETHASONE SOD PHOSPHATE 10 MG/ML VIAL IVP SCH (12:02)
[2019-10-01] MEDS: MICAFUNGIN SODIUM 100 MG in NS 100 ML IV SCH (12:02)
--- NOTE | 2019-10-01 12:30 | NUR ---
ROUND Dr. Herbert in to see patient, new orders entered
--- NOTE | 2019-10-01 13:30 | NUR ---
RT Note: 1330 Pt SpO2 at high 80s. Pt hyperoxygenated and suctioned, pt's SpO2 improved but went down to the high 80s. Increased FiO2 to 70% at this time and pt's SpO2 is between 89-91%. Will continue to monitor pt. RN made aware. Addendum: 10/01/19 at 1343 by Cindy Patrick RT Amended: Links added.
--- NOTE | 2019-10-01 14:23 | NUR ---
Nutrition F/U Admitting Diagnosis: Hypoxia, pneumonia, rule out COVID Medical History Comment: Per MD notes, patient found with COVID-19 infection, viral pneumonia, hypoxia, transaminitis, severe malnutrition. 09/19: Negative for C.diff 09/14 COVID-19 Positive 09/11 09/27: Intubated d/t respiratory failure per MD note 09/28: s/p 1 unit of plasma transfusion 09/28: NGT placement confirmed Subjective Information: Pt remains in isolation d/t COVID-[address] has been deferred. Pt remains intubated and propofol was off per EMR. NGT placement on 09/[address] spoke w/ RN via phone, who stated that pt currently on PPN D20%/AA8.5% at 92.271 ml/hr which meets 50% of calorie and 90% of upper end of protein needs. RN stated that TF is on hold and that MD will restart pt on TF Vital AF 1.2 at 10 ml/hr later today. Recommend continue current PPN. If EN becomes feasible, recommend Vital 1.2 AF at 60ml/hr (goal). This will provide 1728 calories, 108g of protein, and 1168ml of free H20. This will meet 77% of estimated calorie and 104% of upper end of estimated protein needs. Current Diet Order/Nutrition Support: NPO + D20%AA8.5% at 92.271 ml/hr via peripheral line. PPN provides: 1129 kcal, 94gm protein, 2214ml fluids daily and GIR 1.7gm CHO/kg/min Meets: 50% of estimated calorie needs and 90% of upper end of estimated protein needs. Pertinent Medications: VIT C, VIT D-3, zinc, Insulin, Decadron, Lovenox, Metamucil Pertinent Labs 8.3 Na 135 L, K 3.7WNL, BG 130 H, POC BG 139 H, BUN 13WNL, CRE 0.72 WNL, WBC 18.1 H Skin Integrity Comment: Jeffry scale 12, no skin issues reported per EMR. Per EMR, 2+ pitting edema to Bilateral foot and bilateral arm Estimated Energy Expenditure (kcals/day) 2241kcal ([id number] for critical illness on vent, 36C, VE 19L/m) Estimated Protein Required (g/day) 69-104 g/day (1-1.5 gm/kg Adj IBW for acute state) Estimated Fluid Required (l/day) 2.0-2.4 L/day (1 ml/kcal/day for acute state) Problem/Etiology/Signs/Symptoms Altered nutrition related lab values related to acute illness as evidenced by glucose labs and liver function labs. (*ongoing) Predicted suboptimal protein-energy intake r/t acute illness AEB PO intake meeting <75% of estimated nutrient needs. (*ongoing, now on NPO and PPN) Expected Outcomes/Goals Monitor PN tolerance and EN tolerance and intakes w/ goal of pt meeting at least 75% of estimated nutritional needs, labs trending WNL, normal GI function, and skin integrity/wt maintenance. Dietitian Recommendations *Continue NPO per MD orders. *Recommend continue D20% AA8.5% at 92.271 ml/hr (goal rate) via peripheral line Provides: 1129 kcal, 94gm protein, 2214ml and GIR 1.7gm CHO/kg/min Meets: 50% of estimated calorie needs and 94% of upper end of estimated protein needs. *Continue w/ VIT and Zinc coverage. *If TF becomes feasible, recommend Vital 1.2 AF at 60ml/hr (goal) *Continue wean off PPN and gradually increase TF Vital AF 1.2 if/when medically feasible. Follow Up High Risk: F/U in 2-3 days
--- NOTE | 2019-10-01 14:33 | NUR ---
Dietitian Recommendations *Continue NPO per MD orders. *Recommend continue D20% AA8.5% at 92.271 ml/hr (goal rate) via peripheral line Provides: 1129 kcal, 94gm protein, 2214ml and GIR 1.7gm CHO/kg/min Meets: 50% of estimated calorie needs and 94% of upper end of estimated protein needs. *Continue w/ VIT and Zinc coverage. *If TF becomes feasible, recommend Vital 1.2 AF at 60ml/hr (goal) *Continue wean off PPN and gradually increase TF Vital AF 1.2 if/when medically feasible. Please see Nutrition F/U for details. EP,RD
[2019-10-01] MEDS: METOCLOPRAMIDE HCL 10 MG/2 ML VIAL IVP SCH ×2 (15:50→21:05)
--- NOTE | 2019-10-01 16:30 | NUR ---
Nursing Note Patient's wound care performed, patient tolerated well
--- NOTE | 2019-10-01 17:30 | NUR ---
Nursing Note Tubefeeding started at 10mL/hr as per Dr. Herbert
--- NOTE | 2019-10-01 19:30 | NUR ---
PM ASSESSMENT REPORT RECEIVED FROM AM RN. PT RECEIVED IN BED WITH EYES CLOSED, SEDATED, RESPONDING TO TACTILE STIMULATION. VSS, NO S/S OF ACUTE DISTRESS NOTED. PT INTUBATED, VENT SETTINGS: PC 25, R 16, FIO2 70%, PEEP 12. CHERELLE PICC IN PLACE INFUSING NS @ 20 CC/HR, TPN @ 92 CC/HR, VERSED @ 4 MG/HR, AND MORPHINE @ 3 MG/HR. R NARE NGT RUNNING VITAL AF @ 10 CC/HR. BILATERAL SOFT WRIST RESTRAINTS IN PLACE, NO S/S OF INJURY NOTED. STRINGER CATH DRAINING URINE TO GRAVITY. HOB ELEVATED, BED IN LOWEST POSITION, CALL LIGHT IN REACH. WILL CONTINUE TO MONITOR PT.
--- NOTE | 2019-10-01 20:35 | NUR ---
FAMILY UPDATED PTS ANAYELI CALLED IN AND WAS UPDATED ON PT CONDITION. ALL QUESTIONS ANSWERED. WILL CONTINUE TO MONITOR PT.
[2019-10-01] MEDS ORDERED: TPN PERIPHERAL IV SCH ×9 (21:00)
[2019-10-01] MEDS ORDERED: K PHOS IV SCH ×9 (21:00)
[2019-10-01] MEDS ORDERED: POTASSIUM CHLORIDE IV SCH ×9 (21:00)
[2019-10-01] MEDS ORDERED: [UNRECOGNIZED DRUG - OTHER] IV SCH ×9 (21:00)
[2019-10-01] MEDS: TAMSULOSIN HCL 0.4 MG CAP PO SCH (21:04)
[2019-10-01] MEDS: MINERAL OIL 30 ML UDC PO SCH (21:04)
[2019-10-01] MEDS: NACL 0.9% 1,000 ML IV SCH (21:06)
[2019-10-02] VITALS (36 sets, daily range): BP systolic 118–159
[2019-10-02] MEDS: METOCLOPRAMIDE HCL 10 MG/2 ML VIAL IVP SCH ×4 (03:53→21:36)
[2019-10-02] MEDS: metroNIDAZOLE 500 mg/NS 100 ML IV SCH ×3 (05:12→21:36)
[2019-10-02] MEDS: INSULIN LISPRO SLIDING SCALE 100 UNITS/ML VIAL (humaLOG) SUBCUT PRN ×4 (05:13→23:47)
[2019-10-02 06:17] LABS: BASOPHILS % (AUTO) 0.1 % (0.0-2.0); HEMATOCRIT 42.1 % (36-54); HEMOGLOBIN 13.7 g/dL (14.0-18.0); LYMPHOCYTES # (AUTO) 0.4 K/uL (1.0-5.5); LYMPHOCYTES % (AUTO) 2.8 % (20.5-51.5); MEAN CORPUSCULAR HEMOGLOBIN 30 pg (27-31); MEAN CORPUSCULAR HGB CONC 33 % (32-36); MEAN CORPUSCULAR VOLUME 91 fL (79.0-98.0); MONOCYTES # (AUTO) 1.3 K/uL (0.0-1.0); MONOCYTES % (AUTO) 8.8 % (1.7-9.3); NEUTROPHILS # (AUTO) 13.3 K/uL (1.8-7.7); NEUTROPHILS % (AUTO) 88.3 % (40.0-70.0); PLATELET COUNT (AUTO) 105 K/uL (130-430); RED BLOOD CELL COUNT(AUTO) 4.61 MIL/uL (4.2-6.2); RED CELL DISTRIBUTION WIDTH 13.8 % (9.0-15.0)
--- NOTE | 2019-10-02 07:14 | NUR ---
ENDORSEMENT BEDSIDE REPORT GIVEN TO AM RN USING SBAR APPROACH.
--- NOTE | 2019-10-02 07:20 | NUR ---
Opening Note Patient report received via SBAR from endorsing RN
[2019-10-02 07:45] LABS: ALBUMIN 2.1 g/dL (3.4-4.8); CALCIUM 8.1 mg/dL (8.4-11.0); CREATININE 0.52 mg/dL (0.55-1.30); POTASSIUM 4.7 mmol/L (3.5-5.1); TOTAL BILIRUBIN 0.3 mg/dL (0.0-1.0)
[2019-10-02] MEDS: PSYLLIUM HUSK 1 PKT PACKET PO SCH ×2 (08:47→21:34)
[2019-10-02] MEDS: ASCORBIC ACID 500 MG TABLET PO SCH ×2 (08:47→21:35)
[2019-10-02] MEDS: FAMOTIDINE PF 20 MG/2 ML VIAL IVP SCH (08:47)
[2019-10-02] MEDS: MINERAL OIL 30 ML UDC PO SCH ×2 (08:47→21:34)
[2019-10-02] MEDS: CEFEPIME 0.5 GM in D5W 50 ML IV SCH ×2 (08:47→21:34)
[2019-10-02] MEDS: CHOLECALCIFEROL (VITAMIN D3) 2,000 UNIT TABLET PO SCH (08:47)
[2019-10-02] MEDS: ENOXAPARIN SODIUM 30 MG/0.3 ML SYRINGE SUBCUT SCH (08:48)
[2019-10-02] MEDS: MIDAZOLAM HCL IN 0.9 % NACL/PF 50 ML IV PRN (08:55)
[2019-10-02] MEDS: MORPHINE I.V. DRIP 100 ML IV PRN (08:55)
--- NOTE | 2019-10-02 10:00 | NUR ---
MD Round Dr. Toro in to see patient, no new orders. Physician stated he wants the tubefeeding held if the residual is >100mL
--- NOTE | 2019-10-02 11:00 | NUR ---
Nursing Note Dr. Montiel in to see patient, orders for 1 unit of convalescent plasma entered
[2019-10-02] MEDS: MICAFUNGIN SODIUM 100 MG in NS 100 ML IV SCH (11:05)
[2019-10-02] MEDS: DEXAMETHASONE SOD PHOSPHATE 10 MG/ML VIAL IVP SCH (11:05)
--- NOTE | 2019-10-02 14:08 | NUR ---
Spoke w/ Lexis [phone]-re: transfer to tertiary LOC-I informed her I will refer him to all contracted tertiary hospitals in the [place] area for possible transfer [phone] for possible transfer Info packet sent to [facility] -[phone]
[2019-10-02] MEDS: ALBUTEROL MDI INHALATION 8 GM INH INH SCH ×2 (15:24→23:24)
--- NOTE | 2019-10-02 16:04 | NUR ---
Referrals sent to [facility]-no bed capacity and pt is receiving appropriate care at this time-unable to place patient on their waiting list , [facility] no bed capacity-can call daily for possible bed available, [facility]-unable to take referral-no bed capacity and no MD is accepting-no need for higher level of care at this time, pt is receiving appropriate care for his DX. Pt's notified of results of referral process- she stated she is fine w/ pt at [facility] at this time.
--- NOTE | 2019-10-02 16:29 | NUR ---
Received a call from Mary at [facility]-per her director medical safety-cannot accept the patient-Agus Kapadia is following the same protocol for Covid as [facility]-
--- NOTE | 2019-10-02 17:00 | NUR ---
Round Dr. Herbert in to see patient, no new orders
--- NOTE | 2019-10-02 18:00 | NUR ---
Nursing Note Patient's wound care performed, patient given CHG bath. Patient tolerated well
--- NOTE | 2019-10-02 19:17 | NUR ---
Closing Note Patient report given to nightshift RN via SBAR
--- NOTE | 2019-10-02 19:30 | NUR ---
PM ASSESSMENT REPORT RECEIVED FROM RENZO HORVATH. PT RECEIVED IN BED WITH EYES CLOSED, SEDATED, RESPONDING TO TACTILE STIMULATION. VSS, NO S/S OF ACUTE DISTRESS NOTED. PT INTUBATED, VENT SETTINGS: PC 25, R 16, FIO2 70%, PEEP 12. SR ON MONITOR. CHERELLE PICC IN PLACE INFUSING NS @ 20 CC/HR, TPN @ 90 CC/HR, VERSED @ 4 MG/HR, AND MORPHINE @ 3 MG/HR. L NARE NGT IN PLACE RUNNING VITAL AF TF @ 10 CC/HR. BILATERAL SOFT WRIST RESTRAINTS IN PLACE, NO S/S OF INJURY NOTED. STRINGER CATH DRAINING URINE TO GRAVITY. HOB ELEVATED, BED IN LOWEST POSITION, CALL LIGHT IN REACH. WILL CONTINUE TO MONITOR PT.
[2019-10-02] MEDS ORDERED: K PHOS IV SCH ×9 (21:00)
[2019-10-02] MEDS ORDERED: [UNRECOGNIZED DRUG - OTHER] IV SCH ×9 (21:00)
[2019-10-02] MEDS ORDERED: TPN PERIPHERAL IV SCH ×9 (21:00)
[2019-10-02] MEDS: NACL 0.9% 1,000 ML IV SCH (21:00)
[2019-10-02] MEDS ORDERED: POTASSIUM CHLORIDE IV SCH ×9 (21:00)
--- NOTE | 2019-10-02 21:00 | NUR ---
FAMILY UPDATE SPOKE WITH PTS ANAYELI AT THIS TIME. UPDATES ON PT CONDITION PROVIDED AND ALL QUESTIONS ANSWERED. WILL CONTINUE TO MONITOR PT.
[2019-10-02] MEDS: TAMSULOSIN HCL 0.4 MG CAP PO SCH (21:34)
[2019-10-03] VITALS (36 sets, daily range): BP systolic 118–175
[2019-10-03] MEDS: MIDAZOLAM HCL IN 0.9 % NACL/PF 50 ML IV PRN ×2 (00:39→10:19)
[2019-10-03] MEDS: METOCLOPRAMIDE HCL 10 MG/2 ML VIAL IVP SCH ×4 (05:16→22:16)
[2019-10-03] MEDS: INSULIN LISPRO SLIDING SCALE 100 UNITS/ML VIAL (humaLOG) SUBCUT PRN ×4 (05:17→23:34)
[2019-10-03] MEDS: metroNIDAZOLE 500 mg/NS 100 ML IV SCH ×3 (05:17→22:16)
[2019-10-03 06:02] LABS: BASOPHILS % (AUTO) 0.1 % (0.0-2.0); HEMATOCRIT 40.2 % (36-54); HEMOGLOBIN 13.2 g/dL (14.0-18.0); LYMPHOCYTES # (AUTO) 0.3 K/uL (1.0-5.5); LYMPHOCYTES % (AUTO) 2.4 % (20.5-51.5); MEAN CORPUSCULAR HEMOGLOBIN 30 pg (27-31); MEAN CORPUSCULAR HGB CONC 33 % (32-36); MEAN CORPUSCULAR VOLUME 93 fL (79.0-98.0); MONOCYTES # (AUTO) 1.3 K/uL (0.0-1.0); MONOCYTES % (AUTO) 9.5 % (1.7-9.3); PLATELET COUNT (AUTO) 112 K/uL (130-430); RED BLOOD CELL COUNT(AUTO) 4.34 MIL/uL (4.2-6.2); RED CELL DISTRIBUTION WIDTH 14.1 % (9.0-15.0); WHITE BLOOD COUNT (AUTO) 13.7 K/uL (4.8-10.8)
[2019-10-03 06:17] LABS: INR 1.1 (0.80-1.20); PROTHROMBIN TIME 11.2 SECS (9.5-12.5)
--- NOTE | 2019-10-03 06:23 | NUR ---
[facility] SPOKE WITH LOLA AT [facility] AND PROVIDED UPDATES ON PT CONDITION. PER LOLA PT IS STILL ON WAITING LIST TO BE [place] [facility] [place] ICU IS AT MAX CAPACITY AT THIS TIME. THEY WILL FOLLOW UP IF ANY BEDS OPEN UP AT [facility]. WILL CONTINUE TO MONITOR PT.
[2019-10-03 06:26] LABS: ALBUMIN 2.1 g/dL (3.4-4.8); CALCIUM 8.1 mg/dL (8.4-11.0); CREATININE 0.46 mg/dL (0.55-1.30); PHOSPHORUS 3.2 mg/dL (2.7-4.5); POTASSIUM 4.7 mmol/L (3.5-5.1); TOTAL BILIRUBIN 0.4 mg/dL (0.0-1.0)
--- NOTE | 2019-10-03 07:10 | NUR ---
OPENING NOTE Patient report received via SBAR from endorsing RN
[2019-10-03] MEDS: ALBUTEROL MDI INHALATION 8 GM INH INH SCH ×3 (07:25→23:34)
--- NOTE | 2019-10-03 07:25 | NUR ---
RT NOTES TITRATED FIO2 DOWN TO 60%. KEEPING SPO2 ABOVE 90%. RN INDIA MADE AWARE. WILL CONTINUE MONITORING.
--- NOTE | 2019-10-03 07:30 | NUR ---
ENDORSEMENT BEDSIDE REPORT GIVEN TO [facility] RN USING SBAR APPROACH.
[2019-10-03] MEDS: CEFEPIME 0.5 GM in D5W 50 ML IV SCH ×2 (08:08→20:03)
[2019-10-03] MEDS: ASCORBIC ACID 500 MG TABLET PO SCH ×2 (08:09→20:04)
[2019-10-03] MEDS: PSYLLIUM HUSK 1 PKT PACKET PO SCH ×2 (08:09→20:04)
[2019-10-03] MEDS: ENOXAPARIN SODIUM 30 MG/0.3 ML SYRINGE SUBCUT SCH ×2 (08:09→20:04)
[2019-10-03] MEDS: FAMOTIDINE PF 20 MG/2 ML VIAL IVP SCH (08:09)
[2019-10-03] MEDS: MINERAL OIL 30 ML UDC PO SCH ×2 (08:09→20:04)
[2019-10-03] MEDS: CHOLECALCIFEROL (VITAMIN D3) 2,000 UNIT TABLET PO SCH (08:09)
--- NOTE | 2019-10-03 10:00 | NUR ---
Round Dr. Aleman in to see patient, no new orders
[2019-10-03] MEDS: DEXAMETHASONE SOD PHOSPHATE 10 MG/ML VIAL IVP SCH (11:20)
[2019-10-03] MEDS: MICAFUNGIN SODIUM 100 MG in NS 100 ML IV SCH (11:20)
--- NOTE | 2019-10-03 12:00 | NUR ---
Round Dr. Herbert in to see patient, no new oders
--- NOTE | 2019-10-03 13:50 | NUR ---
MD CALL Dr. Aleman informed about patient's labs, no new orders
--- NOTE | 2019-10-03 14:12 | NUR ---
CONSULT NEPHRO. CONSULTING MD: DR. POLLARD DIALED: [phone] SPOKE TO: PARISH ORDERED BY: DR. COLEY Addendum: 10/03/19 at 1425 by Beto Porter AK/ CHARTED ON WRONG PATIENT
[2019-10-03] MEDS: NACL 0.9% 1,000 ML IV SCH (15:30)
--- NOTE | 2019-10-03 15:30 | NUR ---
Nursing Note Patient's wound care performed, CHG bath given, patient repositioned. Patient tolerated well
--- NOTE | 2019-10-03 16:00 | NUR ---
Nursing Note Patient's PICC dressing changed using sterile technique
--- NOTE | 2019-10-03 16:40 | NUR ---
MD CALL Dr. Herbert called regarding patient's condition, consult order entered
--- NOTE | 2019-10-03 16:42 | NUR ---
CONSULT CARDIO. CONSULTING MD: DR. SUGGS SPOKE TO: PEDRO DIALED: [phone] ORDERED BY: DR. JOHNSON
[2019-10-03] MEDS: MORPHINE I.V. DRIP 100 ML IV PRN (17:14)
--- NOTE | 2019-10-03 17:30 | NUR ---
MD CALL Dr. Baldwin in to see patient, physician entered orders and updated family
--- NOTE | 2019-10-03 19:09 | NUR ---
Closing Note Patient report given to nightshift RN via SBAR
--- NOTE | 2019-10-03 19:25 | NUR ---
Opening Note Received report from AM nurse using SBAR approach.
[2019-10-03] MEDS: TAMSULOSIN HCL 0.4 MG CAP PO SCH (20:03)
--- NOTE | 2019-10-03 20:20 | NUR ---
Hold Tubefeeding Checked patient's residual and it was 170. Residual was black colored. Notified MD right away. New orders received.
--- NOTE | 2019-10-03 20:28 | NUR ---
PAGEHien CONTRERAS FOR CHANGE IN CONDITION DIALED: [phone] SPOKE TO: TONYA
[2019-10-03] MEDS ORDERED: PANTOPRAZOLE SODIUM 40 MG/VIAL (PROTONIX) IVP ONE (20:45)
[2019-10-03] MEDS ORDERED: TPN PERIPHERAL IV SCH ×9 (21:00)
[2019-10-03] MEDS ORDERED: [UNRECOGNIZED DRUG - OTHER] IV SCH ×9 (21:00)
[2019-10-03] MEDS ORDERED: POTASSIUM CHLORIDE IV SCH ×9 (21:00)
[2019-10-03] MEDS ORDERED: SODIUM CHLORIDE IV SCH ×9 (21:00)
[2019-10-03] MEDS ORDERED: PANTOPRAZOLE SODIUM 40 MG/VIAL (PROTONIX) ONE (21:01)
[2019-10-03 21:31] LABS: BASOPHILS # (AUTO) 0.1 K/uL (0.0-0.2); BASOPHILS % (AUTO) 0.5 % (0.0-2.0); HEMATOCRIT 42.1 % (36-54); HEMOGLOBIN 13.7 g/dL (14.0-18.0); LYMPHOCYTES # (AUTO) 0.2 K/uL (1.0-5.5); LYMPHOCYTES % (AUTO) 1.3 % (20.5-51.5); MEAN CORPUSCULAR HEMOGLOBIN 30 pg (27-31); MEAN CORPUSCULAR HGB CONC 33 % (32-36); MEAN CORPUSCULAR VOLUME 92 fL (79.0-98.0); NEUTROPHILS # (AUTO) 18.4 K/uL (1.8-7.7); NEUTROPHILS % (AUTO) 93.2 % (40.0-70.0); PLATELET COUNT (AUTO) 114 K/uL (130-430); RED BLOOD CELL COUNT(AUTO) 4.58 MIL/uL (4.2-6.2); RED CELL DISTRIBUTION WIDTH 13.9 % (9.0-15.0); WHITE BLOOD COUNT (AUTO) 19.7 K/uL (4.8-10.8)
--- NOTE | 2019-10-03 22:00 | NUR ---
Family Patient's , Lexis, called and asked for an update. Provided update for her and she said she understands and has no further questions.
[2019-10-03 23:00] LABS: CALCIUM 8.2 mg/dL (8.4-11.0); CHLORIDE 93 mmol/L (98-107); CREATININE 0.56 mg/dL (0.55-1.30); GLUCOSE 256 mg/dL (70-99); POTASSIUM 4.9 mmol/L (3.5-5.1); SODIUM SERUM 129 mmol/L (136-145); UREA NITROGEN, BLOOD 18 mg/dL (8-21)
[2019-10-03 23:11] LABS: ANION GAP < 3 (5-15); GFR AFRICAN AMERICAN 190 mL/min (>90)
--- NOTE | 2019-10-03 23:33 | NUR ---
PAGED DR. MILLER FOR PATIENT CONDITION DIALED: [phone] SPOKE TO: ALLY
[2019-10-04] VITALS (34 sets, daily range): BP systolic 119–155
[2019-10-04] MEDS: METOCLOPRAMIDE HCL 10 MG/2 ML VIAL IVP SCH ×4 (03:52→22:07)
--- NOTE | 2019-10-04 05:00 | NUR ---
[facility] SPOKE WITH LOLA AT [facility] AND PROVIDED UPDATES ON PT CONDITION. PER LOLA PT IS STILL ON WAITING LIST TO BE TRANSFERRED TO [facility] HOWEVER ICU IS AT MAX CAPACITY AT THIS TIME. THEY WILL FOLLOW UP IF ANY BEDS OPEN UP AT [facility]. WILL CONTINUE TO MONITOR PT.
[2019-10-04] MEDS: INSULIN LISPRO SLIDING SCALE 100 UNITS/ML VIAL (humaLOG) SUBCUT PRN ×4 (05:53→23:54)
--- NOTE | 2019-10-04 06:00 | NUR ---
Family Patient's , Lexis, called and asked for an update. Provided update for her and she said she understands and has no further questions.
[2019-10-04] MEDS: metroNIDAZOLE 500 mg/NS 100 ML IV SCH (06:16)
[2019-10-04 06:18] LABS: BASOPHILS % (AUTO) 0.1 % (0.0-2.0); EOSINOPHILS % (AUTO) 0.1 % (0.0-4.0); HEMATOCRIT 40.3 % (36-54); HEMOGLOBIN 13.2 g/dL (14.0-18.0); LYMPHOCYTES # (AUTO) 0.4 K/uL (1.0-5.5); LYMPHOCYTES % (AUTO) 2.3 % (20.5-51.5); MEAN CORPUSCULAR HEMOGLOBIN 30 pg (27-31); MEAN CORPUSCULAR HGB CONC 33 % (32-36); MEAN CORPUSCULAR VOLUME 91 fL (79.0-98.0); MONOCYTES # (AUTO) 1.2 K/uL (0.0-1.0); MONOCYTES % (AUTO) 6.8 % (1.7-9.3); NEUTROPHILS # (AUTO) 16.5 K/uL (1.8-7.7); NEUTROPHILS % (AUTO) 90.7 % (40.0-70.0); PLATELET COUNT (AUTO) 120 K/uL (130-430); RED BLOOD CELL COUNT(AUTO) 4.41 MIL/uL (4.2-6.2); RED CELL DISTRIBUTION WIDTH 14.5 % (9.0-15.0); WHITE BLOOD COUNT (AUTO) 18.1 K/uL (4.8-10.8)
[2019-10-04 06:40] LABS: ALANINE AMINOTRANSFERASE 60 U/L (12-78); ALBUMIN 1.9 g/dL (3.4-4.8); ASPARTATE AMINOTRANSFERASE 24 U/L (10-37); BILIRUBIN,DIRECT 0.2 mg/dL (0.0-0.3); CALCIUM 8.2 mg/dL (8.4-11.0); GLUCOSE 199 mg/dL (70-99); PHOSPHORUS 2.3 mg/dL (2.7-4.5); TOTAL BILIRUBIN 0.6 mg/dL (0.0-1.0); UREA NITROGEN, BLOOD 19 mg/dL (8-21)
--- NOTE | 2019-10-04 07:25 | NUR ---
Closing Note Endorsed report to AM nurse using SBAR approach.
[2019-10-04 08:39] LABS: ANION GAP < 3 (5-15); CHLORIDE 96 mmol/L (98-107); GFR AFRICAN AMERICAN 216 mL/min (>90); POTASSIUM 4.6 mmol/L (3.5-5.1); SODIUM SERUM 133 mmol/L (136-145)
[2019-10-04] MEDS: CHOLECALCIFEROL (VITAMIN D3) 2,000 UNIT TABLET PO SCH (09:00)
[2019-10-04] MEDS: FAMOTIDINE PF 20 MG/2 ML VIAL IVP SCH (09:00)
[2019-10-04] MEDS: CEFEPIME 0.5 GM in D5W 50 ML IV SCH (09:00)
[2019-10-04] MEDS ORDERED: PANTOPRAZOLE SODIUM 40 MG/VIAL (PROTONIX) IVP SCH ×2 (09:00→21:00)
[2019-10-04] MEDS: PSYLLIUM HUSK 1 PKT PACKET PO SCH ×2 (09:00→22:06)
[2019-10-04] MEDS: ASCORBIC ACID 500 MG TABLET PO SCH ×2 (09:00→22:06)
[2019-10-04] MEDS: ENOXAPARIN SODIUM 30 MG/0.3 ML SYRINGE SUBCUT SCH ×2 (09:00→12:01)
[2019-10-04] MEDS: MINERAL OIL 30 ML UDC PO SCH ×2 (09:00→22:06)
--- NOTE | 2019-10-04 09:00 | NUR ---
Pt report received. Pt resting. VSS, not in distress. Pt only responsive to pain by attempting to move BUE . Soft wrist restraints in place to Larry UE,check for circulation no injury noted. NGT secure to left nares,check for residual coffee ground noted 10 ml. placed to low intermittent suction.ETT secure with Vent settings:7.5 size, 20 lipline. PS75 Rate 16 , PEEP 12, FiO2 60%. SPO2 at 96%. F/C secure and patent, shweta urine. PICC line to RUE with Versed infusing at 3 mg/hr and Morphine at 3 mg/hr. NS at 20 mL/hr and TPN at 90 mL/hr. Foam dressing to sacrum.dry and clean. hob elevated to prevent aspiration.
[2019-10-04] MEDS: ALBUTEROL MDI INHALATION 8 GM INH INH SCH ×3 (09:02→23:45)
--- NOTE | 2019-10-04 11:00 | NUR ---
patient daughter called and updated patient current condition. all question answered.
[2019-10-04] MEDS: DEXAMETHASONE SOD PHOSPHATE 10 MG/ML VIAL IVP SCH (11:14)
--- NOTE | 2019-10-04 13:45 | NUR ---
Nutrition F/U Admitting Diagnosis: Hypoxia, pneumonia, rule out COVID Medical History Comment: Per MD notes, patient found with COVID-19 infection, viral pneumonia, hypoxia, transaminitis, severe malnutrition. 09/19: Negative for C.diff 09/14 COVID-19 Positive 09/11 09/27: Intubated d/t respiratory failure per MD note 09/28: s/p 1 unit of plasma transfusion 09/28: NGT placement confirmed 10/03: MD notes: Acute Diverticulitis Subjective Information: Pt remains in ICU, RD visit deferred d/t COVID-[address] placed phone call to pt's RN, x2 attempts, but was told that RN was busy. RD went to see RN at nursing unit but was also busy at that time. Per EMR review, NGT has been placed and wants trial for EN feeding to discontinue TPN once EN is meeting estimated needs. Current TPN provides: 1102 kcal, 92gm protein and EN provides: 288 kcal, 18gm protein daily. Increase EN infusion rate by 10ml Q6H to meet goal rate and estimated needs. Current Diet Order/Nutrition Support: Vital AF 1.2 at 10ml/hr, FWF 50ml Q6H via NGT EN provides: 288 kcal, 18gm protein and 395 ml fluids daily. + D20%AA8.5% at 90 ml/hr via peripheral line. PPN provides: 1102 kcal, 92gm protein, 2160ml fluids daily and GIR 1.6gm CHO/kg/min Pertinent Medications: VIT C, VIT D-3, zinc, Insulin, Decadron, Lovenox, Protonix, Reglan, Mineral oil Pertinent Labs: 10/03 Na 133 L, K 4.6WNL, BG 199 H, POC BG 189 H, BUN 19WNL, CRE 0.50 WNL, WBC 18.1 H Skin Integrity Comment: Jeffry scale 14, skin tear to lower buttocks per EMR. Per EMR, 1+ pitting edema to Bilateral foot and bilateral arm Estimated Energy Expenditure (kcals/day) 2241kcal ([id number] for critical illness on vent) Estimated Protein Required (g/day) 69-104 g/day (1-1.5 gm/kg Adj IBW for acute state) Estimated Fluid Required (l/day) 2.0-2.4 L/day (1 ml/kcal/day for acute state) Problem/Etiology/Signs/Symptoms Altered nutrition related lab values related to acute illness as evidenced by glucose labs and liver function labs. (*ongoing) Predicted suboptimal protein-energy intake r/t acute illness AEB PO intake meeting <75% of estimated nutrient needs. (*ongoing, now on NPO and PPN) Expected Outcomes/Goals Monitor PN tolerance and EN tolerance and intakes w/ goal of pt meeting more than 75% of estimated nutritional needs, labs trending WNL, normal GI function, and skin integrity/wt maintenance. Dietitian Recommendations *Continue NPO per MD orders. *Recommend Vital 1.2 AF at 60ml/hr (goal rate), increase by 10ml Q6H to goal rate. *Stop TPN once EN is at 55-60ml/hr, which will meet 75% of estimated needs. *Continue D20% AA8.5% at 90 ml/hr (goal rate) via peripheral line Provides: 1102 kcal, 92gm protein, 2160 ml and GIR 1.6 gm CHO/kg/min *Continue w/ VIT and Zinc coverage. Follow Up High Risk: F/U in 2-3 days
--- NOTE | 2019-10-04 13:56 | NUR ---
Dietitian Recommendations *Continue NPO per MD orders. *Recommend Vital 1.2 AF at 60ml/hr (goal rate), increase by 10ml Q6H to goal rate. *Stop TPN once EN is at 55-60ml/hr, which will meet 75% of estimated needs. *Continue D20% AA8.5% at 90 ml/hr (goal rate) via peripheral line Provides: 1102 kcal, 92gm protein, 2160 ml and GIR 1.6 gm CHO/kg/min *Continue w/ VIT and Zinc coverage. Please see Nutrition F/U note for details. VIJAY, RD
[2019-10-04] MEDS: MICAFUNGIN SODIUM 100 MG in NS 100 ML IV SCH (14:28)
--- NOTE | 2019-10-04 18:00 | NUR ---
family able to use patient outside the door. charge nurse lewis updated family about pt current condition.
[2019-10-04] MEDS: PIPERACILLIN/TAZO 4.5GM/DEX-IS 100 ML IV SCH ×2 (18:31→22:07)
--- NOTE | 2019-10-04 19:25 | NUR ---
PM SHIFT ASSESSMENT Pt is sedated on vent. RR even and unlabored. ST on monitor. Skin warm and dry. CHERELLE PICCLINE in place with IVF infusing. Joshi catheter in place and draining to gravity. Bilateral wrist restraints in place, no signs of skin issues noted. Safety precautions in place, call light within reach. Will continue to monitor.
--- NOTE | 2019-10-04 20:13 | NUR ---
all needs mets. vital sign stable, afebrile. no s/s of distress. no significant changes of condition noted. report given to Kia HORVATH. convalescent plasma avail per blood bank.
[2019-10-04] MEDS ORDERED: ENOXAPARIN SODIUM 30 MG/0.3 ML SYRINGE SUBCUT SCH (21:00)
[2019-10-04] MEDS ORDERED: TPN PERIPHERAL IV SCH ×10 (21:00)
[2019-10-04] MEDS ORDERED: [UNRECOGNIZED DRUG - OTHER] IV SCH ×10 (21:00)
[2019-10-04] MEDS ORDERED: SODIUM CHLORIDE IV SCH ×10 (21:00)
[2019-10-04] MEDS ORDERED: POTASSIUM CHLORIDE IV SCH ×10 (21:00)
[2019-10-04] MEDS: TAMSULOSIN HCL 0.4 MG CAP PO SCH (22:06)
[2019-10-04] MEDS: PANTOPRAZOLE SODIUM 40 MG/VIAL (PROTONIX) IVP SCH (22:06)
[2019-10-04] MEDS: NACL 0.9% 1,000 ML IV SCH (22:06)
[2019-10-05] VITALS (37 sets, daily range): BP systolic 114–173
[2019-10-05] MEDS: METOCLOPRAMIDE HCL 10 MG/2 ML VIAL IVP SCH ×4 (04:27→22:49)
[2019-10-05 06:39] LABS: HEMATOCRIT 39.3 % (36-54); HEMOGLOBIN 12.6 g/dL (14.0-18.0); LYMPHOCYTES # (AUTO) 0.2 K/uL (1.0-5.5); LYMPHOCYTES % (AUTO) 1.4 % (20.5-51.5); MEAN CORPUSCULAR HEMOGLOBIN 30 pg (27-31); MEAN CORPUSCULAR HGB CONC 32 % (32-36); MEAN CORPUSCULAR VOLUME 92 fL (79.0-98.0); MONOCYTES # (AUTO) 0.8 K/uL (0.0-1.0); MONOCYTES % (AUTO) 4.9 % (1.7-9.3); NEUTROPHILS # (AUTO) 15.4 K/uL (1.8-7.7); NEUTROPHILS % (AUTO) 93.7 % (40.0-70.0); PLATELET COUNT (AUTO) 135 K/uL (130-430); RED BLOOD CELL COUNT(AUTO) 4.26 MIL/uL (4.2-6.2); RED CELL DISTRIBUTION WIDTH 14.6 % (9.0-15.0); WHITE BLOOD COUNT (AUTO) 16.4 K/uL (4.8-10.8)
[2019-10-05] MEDS: PIPERACILLIN/TAZO 4.5GM/DEX-IS 100 ML IV SCH ×3 (06:42→22:48)
[2019-10-05 06:43] LABS: CALCIUM 7.9 mg/dL (8.4-11.0); CREATININE 0.52 mg/dL (0.55-1.30); PHOSPHORUS 3.3 mg/dL (2.7-4.5); POTASSIUM 5.2 mmol/L (3.5-5.1)
[2019-10-05] MEDS: INSULIN LISPRO SLIDING SCALE 100 UNITS/ML VIAL (humaLOG) SUBCUT PRN ×3 (06:43→18:40)
[2019-10-05] MEDS: ALBUTEROL MDI INHALATION 8 GM INH INH SCH ×3 (07:10→23:20)
--- NOTE | 2019-10-05 07:10 | NUR ---
RT NOTES FIO2 to 0.55. will monitor pt.
[2019-10-05] MEDS: MORPHINE I.V. DRIP 100 ML IV PRN (07:22)
--- NOTE | 2019-10-05 07:25 | NUR ---
ENDORSEMENT Pt care endorsed to dayshift RN using nursing SBAR.
--- NOTE | 2019-10-05 07:50 | NUR ---
AM ASSESSMENT. PT MECHANICALLY VENTILATED, PT ON MORPHINE DRIP AT 3 MG/HR, VERSED AT 1 MG PER HR, PPN AT 90 ML PER HR, NS AT 20 ML/HR RUNNING THRU PICC LINE. NGT TO LOW INTERMITTENT SUCTION, SCANTY AMOUNT OF BROWNISH DRAINAGE, ABDOMEN SOFT, NON DISTENDED. STRINGER CATHETER DRAINING ELIZABETH URINE.
[2019-10-05] MEDS: PSYLLIUM HUSK 1 PKT PACKET PO SCH ×2 (08:33→20:34)
[2019-10-05] MEDS: ASCORBIC ACID 500 MG TABLET PO SCH ×2 (08:33→20:33)
[2019-10-05] MEDS: FAMOTIDINE PF 20 MG/2 ML VIAL IVP SCH (08:33)
[2019-10-05] MEDS: CHOLECALCIFEROL (VITAMIN D3) 2,000 UNIT TABLET PO SCH (08:33)
[2019-10-05] MEDS: PANTOPRAZOLE SODIUM 40 MG/VIAL (PROTONIX) IVP SCH ×2 (08:37→20:34)
[2019-10-05] MEDS ORDERED: SODIUM POLYSTYRENE SULFONATE 15 GM/60 ML UDBTL NG ONE (10:00)
[2019-10-05] MEDS: MINERAL OIL 30 ML UDC PO SCH ×2 (11:12→20:34)
[2019-10-05] MEDS: MICAFUNGIN SODIUM 100 MG in NS 100 ML IV SCH (11:19)
[2019-10-05] MEDS: DEXAMETHASONE SOD PHOSPHATE 10 MG/ML VIAL IVP SCH (11:19)
--- NOTE | 2019-10-05 11:35 | NUR ---
B.T. 1 UNIT CONVALESCENT PLASMA HUNG. UNIT COMPARED TO PT'S IDENTIFICATION BAND, VERIFIED BY ANOTHER RN. VITAL SIGNS PRIOR TO TRANSFUSION AND DURING TRANSFUSION TAKEN AND RECORDED.
--- NOTE | 2019-10-05 12:50 | NUR ---
TRANSFUSION. PATIENT COMPLETED BLOOD TRANSFUSION. VITAL SIGNS STABLE. PT TOLERATED WELL.
--- NOTE | 2019-10-05 13:35 | NUR ---
RT NOTES FIO2 TO 0.50. will monitor pt.
--- NOTE | 2019-10-05 15:00 | NUR ---
FAMILY. PT'S DAUGHTER HARDY CALLED, UPDATE GIVEN ON PT'S STATUS.
--- NOTE | 2019-10-05 18:15 | NUR ---
NURSING. PT REMAINS LETHARGIC, ON VERSED DRIP AT 1 MG/HR, MORPHINE AT 2 MG/HR, PT MOVES HIS LEFT ARM OCCASIONALLY BUT WEAK, CONTINUE TO MONITOR.
[2019-10-05] MEDS: MIDAZOLAM HCL IN 0.9 % NACL/PF 50 ML IV PRN (18:29)
--- NOTE | 2019-10-05 19:34 | NUR ---
PM SHIFT ASSESSMENT Pt is sedated on vent. RR even and unlabored. SR on monitor. Skin warm and dry. CHERELLE PICCLINE in place with IVF infusing. Joshi catheter in place and draining to gravity. Safety precautions in place, call light within reach. Will continue to monitor.
[2019-10-05] MEDS: NACL 0.9% 1,000 ML IV SCH (20:33)
[2019-10-05] MEDS: TAMSULOSIN HCL 0.4 MG CAP PO SCH (20:33)
[2019-10-05] MEDS ORDERED: SODIUM CHLORIDE IV SCH ×9 (21:00)
[2019-10-05] MEDS ORDERED: NA PHOS IV SCH ×9 (21:00)
[2019-10-05] MEDS ORDERED: [UNRECOGNIZED DRUG - OTHER] IV SCH ×9 (21:00)
[2019-10-05] MEDS ORDERED: TPN PERIPHERAL IV SCH ×9 (21:00)
[2019-10-06] VITALS (36 sets, daily range): BP systolic 124–184
[2019-10-06] MEDS: INSULIN LISPRO SLIDING SCALE 100 UNITS/ML VIAL (humaLOG) SUBCUT PRN ×4 (00:44→18:54)
[2019-10-06] MEDS: METOCLOPRAMIDE HCL 10 MG/2 ML VIAL IVP SCH ×4 (05:27→21:10)
--- NOTE | 2019-10-06 05:30 | NUR ---
VERSED I witness Kia HORVATH increase versed to 2mg/hr.
[2019-10-06] MEDS: ALBUTEROL MDI INHALATION 8 GM INH INH SCH ×3 (06:00→22:00)
[2019-10-06] MEDS: PIPERACILLIN/TAZO 4.5GM/DEX-IS 100 ML IV SCH ×3 (06:19→21:10)
[2019-10-06 06:45] LABS: BASOPHILS % (AUTO) 0.3 % (0.0-2.0); HEMATOCRIT 37.1 % (36-54); LYMPHOCYTES # (AUTO) 0.3 K/uL (1.0-5.5); MEAN CORPUSCULAR HEMOGLOBIN 30 pg (27-31); MEAN CORPUSCULAR HGB CONC 32 % (32-36); MEAN CORPUSCULAR VOLUME 92 fL (79.0-98.0); MONOCYTES # (AUTO) 1.3 K/uL (0.0-1.0); MONOCYTES % (AUTO) 7.6 % (1.7-9.3); NEUTROPHILS # (AUTO) 15.6 K/uL (1.8-7.7); NEUTROPHILS % (AUTO) 90.1 % (40.0-70.0); PLATELET COUNT (AUTO) 161 K/uL (130-430); RED BLOOD CELL COUNT(AUTO) 4.03 MIL/uL (4.2-6.2); RED CELL DISTRIBUTION WIDTH 14.5 % (9.0-15.0); WHITE BLOOD COUNT (AUTO) 17.3 K/uL (4.8-10.8)
[2019-10-06 07:01] LABS: ALANINE AMINOTRANSFERASE 47 U/L (12-78); ALBUMIN 1.7 g/dL (3.4-4.8); ASPARTATE AMINOTRANSFERASE 20 U/L (10-37); C-REACTIVE PROTEIN QUANT 3.8 mg/dL (0-0.5); CALCIUM 8.5 mg/dL (8.4-11.0); CHLORIDE 98 mmol/L (98-107); GLUCOSE 234 mg/dL (70-99); PHOSPHORUS 2.2 mg/dL (2.7-4.5); POTASSIUM 3.8 mmol/L (3.5-5.1); SODIUM SERUM 133 mmol/L (136-145); TOTAL BILIRUBIN 0.5 mg/dL (0.0-1.0); TRIGLYCERIDES 84 mg/dL (30-150); UREA NITROGEN, BLOOD 19 mg/dL (8-21)
[2019-10-06 07:19] LABS: GFR AFRICAN AMERICAN 216 mL/min (>90)
[2019-10-06 07:20] LABS: ANION GAP < 3 (5-15)
--- NOTE | 2019-10-06 07:30 | NUR ---
ENDORSEMENT Pt care endorsed to dayshift RN using nursing SBAR.
--- NOTE | 2019-10-06 08:00 | NUR ---
Opening Note Received plan of care via sbar from endorsing ALEXANDRU Adam.
--- NOTE | 2019-10-06 08:30 | NUR ---
Dr. Baldwin at bedside. Provided update on holding lovenox, patient, and increased BP. MD will place orders.
[2019-10-06] MEDS ORDERED: hydrALAZINE HCL 20 MG/ML VIAL IVP PRN (08:45)
[2019-10-06] MEDS: MINERAL OIL 30 ML UDC PO SCH ×2 (09:48→21:10)
[2019-10-06] MEDS: FAMOTIDINE PF 20 MG/2 ML VIAL IVP SCH (09:48)
[2019-10-06] MEDS: CHOLECALCIFEROL (VITAMIN D3) 2,000 UNIT TABLET PO SCH (09:48)
[2019-10-06] MEDS: PSYLLIUM HUSK 1 PKT PACKET PO SCH ×2 (09:48→21:10)
[2019-10-06] MEDS: PANTOPRAZOLE SODIUM 40 MG/VIAL (PROTONIX) IVP SCH ×2 (09:48→21:09)
[2019-10-06] MEDS: ASCORBIC ACID 500 MG TABLET PO SCH ×2 (10:06→21:10)
--- NOTE | 2019-10-06 10:20 | NUR ---
CHANGED PEEP TO +8 PER MD SWANSON. SPO2 98%, HR 80.
[2019-10-06] MEDS: MICAFUNGIN SODIUM 100 MG in NS 100 ML IV SCH (13:00)
[2019-10-06] MEDS: MIDAZOLAM HCL IN 0.9 % NACL/PF 50 ML IV PRN (13:24)
--- NOTE | 2019-10-06 19:30 | NUR ---
PM ASSESSMENT REPORT RECEIVED FROM JEAN PIERRE HORVATH. PT RECEIVED IN BED WITH EYES CLOSED, SEDATED. VSS, NO S/S OF ACUTE DISTRESS NOTED. PT INTUBATED, VENT SETTINGS: PC 24, R 16, FIO2 50%, PEEP 8. CHERELLE PICC IN PLACE INFUSING NS @ 20 CC/HR, TPN @ 90 CC/HR, VERSED @ 2 MG/HR, AND MORPHINE @ 2 MG/HR. L NARE NGT IN PLACE RUNNING VITAL AF TF @ 10 CC/HR. STRINGER CATH IN PLACE DRAINING URINE TO GRAVITY. HOB ELEVATED, BED IN LOWEST POSITION, CALL LIGHT IN REACH. WILL CONTINUE TO MONITOR PT.
--- NOTE | 2019-10-06 19:31 | NUR ---
Closing Note Provided plan of care to receiving ALEXANDRU Santana
[2019-10-06] MEDS ORDERED: SODIUM CHLORIDE IV SCH ×11 (21:00)
[2019-10-06] MEDS ORDERED: TPN PERIPHERAL IV SCH ×11 (21:00)
[2019-10-06] MEDS: NACL 0.9% 1,000 ML IV SCH (21:00)
[2019-10-06] MEDS ORDERED: [UNRECOGNIZED DRUG - OTHER] IV SCH ×11 (21:00)
[2019-10-06] MEDS ORDERED: NA PHOS IV SCH ×11 (21:00)
[2019-10-06] MEDS: TAMSULOSIN HCL 0.4 MG CAP PO SCH (21:10)
[2019-10-07] VITALS (30 sets, daily range): BP systolic 64–195
[2019-10-07] MEDS: INSULIN LISPRO SLIDING SCALE 100 UNITS/ML VIAL (humaLOG) SUBCUT PRN ×3 (00:04→18:58)
[2019-10-07] MEDS: METOCLOPRAMIDE HCL 10 MG/2 ML VIAL IVP SCH ×4 (03:50→21:02)
[2019-10-07] MEDS: PIPERACILLIN/TAZO 4.5GM/DEX-IS 100 ML IV SCH ×3 (05:16→20:57)
[2019-10-07] MEDS: ALBUTEROL MDI INHALATION 8 GM INH INH SCH ×3 (06:00→23:20)
[2019-10-07 06:16] LABS: HEMATOCRIT 43.4 % (36-54); HEMOGLOBIN 14.1 g/dL (14.0-18.0); MEAN CORPUSCULAR HEMOGLOBIN 29 pg (27-31); MEAN CORPUSCULAR HGB CONC 33 % (32-36); MEAN CORPUSCULAR VOLUME 91 fL (79.0-98.0); PLATELET COUNT (AUTO) 217 K/uL (130-430); RED BLOOD CELL COUNT(AUTO) 4.79 MIL/uL (4.2-6.2); RED CELL DISTRIBUTION WIDTH 14.7 % (9.0-15.0); WHITE BLOOD COUNT (AUTO) 17.3 K/uL (4.8-10.8)
[2019-10-07 06:28] LABS: ALBUMIN 1.8 g/dL (3.4-4.8); C-REACTIVE PROTEIN QUANT 6.2 mg/dL (0-0.5); CALCIUM 8.3 mg/dL (8.4-11.0); CREATININE 0.68 mg/dL (0.55-1.30); PHOSPHORUS 2.8 mg/dL (2.7-4.5); POTASSIUM 3.3 mmol/L (3.5-5.1); TOTAL BILIRUBIN 1.3 mg/dL (0.0-1.0)
--- NOTE | 2019-10-07 07:35 | NUR ---
ENDORSEMENT BEDSIDE REPORT GIVEN TO MICK HORVATH USING SBAR APPROACH.
[2019-10-07] MEDS: FAMOTIDINE PF 20 MG/2 ML VIAL IVP SCH (09:19)
[2019-10-07] MEDS: ASCORBIC ACID 500 MG TABLET PO SCH ×2 (09:19→20:57)
[2019-10-07] MEDS: PSYLLIUM HUSK 1 PKT PACKET PO SCH ×2 (09:19→20:58)
[2019-10-07] MEDS: MINERAL OIL 30 ML UDC PO SCH ×2 (09:19→20:58)
[2019-10-07] MEDS: PANTOPRAZOLE SODIUM 40 MG/VIAL (PROTONIX) IVP SCH ×2 (09:19→20:56)
[2019-10-07] MEDS: CHOLECALCIFEROL (VITAMIN D3) 2,000 UNIT TABLET PO SCH (09:19)
--- NOTE | 2019-10-07 10:26 | NUR ---
1010 TITRATED FIO2 TO .50. SAT 95%.WILL CONT TO MONITOR. Addendum: 10/07/19 at 1027 by Reny Aquino RT Amended: Links added.
[2019-10-07 11:37] LABS: BAND % (MANUAL) 9 % (0-6)
[2019-10-07 11:38] LABS: BASOPHILS % (MANUAL) 0 % (0-2); EOSINOPHILS % (MANUAL) 2 % (0-7); LYMPHOCYTES % (MANUAL) 4 % (20-46); MONOCYTES % (MANUAL) 7 % (0-11)
[2019-10-07] MEDS: MICAFUNGIN SODIUM 100 MG in NS 100 ML IV SCH (11:50)
--- NOTE | 2019-10-07 12:18 | NUR ---
PAGED PAGED USHA NGUYỄN AT [phone] SPOKE WITH EXCHANGE.
--- NOTE | 2019-10-07 15:07 | NUR ---
Nutrition F/U Admitting Diagnosis: Hypoxia, pneumonia, rule out COVID Medical History Comment: Per MD notes, patient found with COVID-19 infection, viral pneumonia, hypoxia, transaminitis, severe malnutrition. 09/19: Negative for C.diff 09/14 COVID-19 Positive 09/11 09/27: Intubated d/t respiratory failure per MD note 09/28: s/p 1 unit of plasma transfusion 09/28: NGT placement confirmed 10/03: MD notes: Acute Diverticulitis Subjective Information: Pt remains in ICU, RD visit deferred d/t COVID-19 Isolation, limited PPE. Per EMR review, pt is receiving TPN at 90 ml/hr and Vital at 10 ml/hr. No issues with nutrition infusion reported. Current TPN provides: 1102 kcal, 92gm protein and EN provides: 288 kcal, 18gm protein daily. Increase EN infusion rate by 10ml Q6H to meet goal rate and estimated needs. Current Diet Order/Nutrition Support: Vital AF 1.2 at 10ml/hr, FWF 50ml Q6H via NGT EN provides: 288 kcal, 18gm protein and 395 ml fluids daily. + D20%AA8.5% at 90 ml/hr via peripheral line. PPN provides: 1102 kcal, 92gm protein, 2160ml fluids daily and GIR 1.6gm CHO/kg/min Pertinent Medications: VIT C, VIT D-3, zinc, Insulin, Decadron, Lovenox, Protonix, Reglan, Mineral oil Pertinent Labs: 10/06 Na 131 L, K 3.3L, BG 196 H, POC BG 187 H, Ca 8.3 L, AST 73 H, ALT 128 H, Alk phos 121 H Skin Integrity Comment: Jeffry scale 12, skin tear to lower buttocks per EMR. Per EMR, 1+ pitting edema to Bilateral foot and bilateral arm Estimated Energy Expenditure (kcals/day) 2241kcal ([id number] for critical illness on vent) Estimated Protein Required (g/day) 69-104 g/day (1-1.5 gm/kg Adj IBW for acute state) Estimated Fluid Required (l/day) 2.0-2.4 L/day (1 ml/kcal/day for acute state) Problem/Etiology/Signs/Symptoms Altered nutrition related lab values related to acute illness as evidenced by glucose labs and liver function labs. (*ongoing) Predicted suboptimal protein-energy intake r/t acute illness AEB PO intake meeting <75% of estimated nutrient needs. (*ongoing, now on NPO and PPN) Expected Outcomes/Goals Monitor PN tolerance and EN tolerance and intakes w/ goal of pt meeting more than 75% of estimated nutritional needs, labs trending WNL, normal GI function, and skin integrity/wt maintenance. Dietitian Recommendations *Continue NPO per MD orders. *Recommend Vital 1.2 AF at 60ml/hr (goal rate), increase by 10ml Q6H to goal rate. *Stop TPN once EN is at 55-60ml/hr, which will meet 75% of estimated needs. *Continue D20% AA8.5% at 90 ml/hr (goal rate) via peripheral line Provides: 1102 kcal, 92gm protein, 2160 ml and GIR 1.6 gm CHO/kg/min *Continue w/ VIT and Zinc coverage. Follow Up High Risk: F/U in 2-3 days
--- NOTE | 2019-10-07 15:12 | NUR ---
Dietitian Recommendations *Continue NPO per MD orders. *Recommend Vital 1.2 AF at 60ml/hr (goal rate), increase by 10ml Q6H to goal rate. *Stop TPN once EN is at 55-60ml/hr, which will meet 75% of estimated needs. *Continue D20% AA8.5% at 90 ml/hr (goal rate) via peripheral line Provides: 1102 kcal, 92gm protein, 2160 ml and GIR 1.6 gm CHO/kg/min *Continue w/ VIT and Zinc coverage. Please see Nutrition F/U for details. SS,RD
[2019-10-07] MEDS ORDERED: NALOXONE HCL 0.4 MG/ML AMP (NARCAN) IVP PRN (15:45)
[2019-10-07] MEDS ORDERED: POTASSIUM CHLORIDE 20 MEQ in NS 250 ML IV ONE (16:00)
--- NOTE | 2019-10-07 20:00 | NUR ---
ORALLY INTUBATED. SUCTIONED WITH MOD AMOUNT OF RED-TINGED YELLOW MUCUS OBTAINED. ORAL CARE GIVEN. NGT TO LIS. VILLARREAL PICC LINE DRSLilly D/I. ON VERSED AT 2 MG/HR AND MORPHINE AT 2 MG/HR. MICK SOFT WRIST RESTRAINTS ON FOR SAFETY. STRINGER CATH PATENT DRAINING CLOUDY ELIZABETH URINE TO GRAVITY.
[2019-10-07] MEDS: TAMSULOSIN HCL 0.4 MG CAP PO SCH (20:56)
[2019-10-07] MEDS ORDERED: [UNRECOGNIZED DRUG - OTHER] IV SCH ×11 (21:00)
[2019-10-07] MEDS ORDERED: TPN PERIPHERAL IV SCH ×11 (21:00)
[2019-10-07] MEDS ORDERED: SODIUM CHLORIDE IV SCH ×11 (21:00)
[2019-10-07] MEDS ORDERED: NA PHOS IV SCH ×11 (21:00)
[2019-10-07] MEDS: NACL 0.9% 1,000 ML IV SCH (21:03)
--- NOTE | 2019-10-07 22:00 | NUR ---
HS CARE RENDERED.
[2019-10-08] VITALS (30 sets, daily range): BP systolic 114–167
--- NOTE | 2019-10-08 | NUR ---
SUCTIONED WITH SAME RESULTS. ORAL CARE GIVEN. PULSES PALPABLE. ACCU-CHEK 157, 2 UNITS HUMALOG INSULIN SQ GIVEN. TURNED.
[2019-10-08] MEDS: INSULIN LISPRO SLIDING SCALE 100 UNITS/ML VIAL (humaLOG) SUBCUT PRN ×2 (00:26→06:29)
--- NOTE | 2019-10-08 02:00 | NUR ---
SOUNDLY ASLEEP. NO DISTRESS NOTED.
--- NOTE | 2019-10-08 04:00 | NUR ---
TURNED. SUCTIONED. ORAL CARE GIVEN. PULSES PALPABLE.
[2019-10-08] MEDS: METOCLOPRAMIDE HCL 10 MG/2 ML VIAL IVP SCH ×3 (04:06→17:27)
[2019-10-08] MEDS ORDERED: METOCLOPRAMIDE HCL 10 MG/2 ML VIAL ONE (04:23)
--- NOTE | 2019-10-08 05:00 | NUR ---
AM CARE RENDERED.
--- NOTE | 2019-10-08 06:00 | NUR ---
UO GOOD. ACCU-CHEK 180, 2 UNITS HUMALOG INSULIN SQ GIVEN PER SLIDING SCALE COV. CALLED, UPDATED ON STATUS. QUESTIONS ANSWERED. REMAINS IN GUARDED CONDITION.
[2019-10-08] MEDS: PIPERACILLIN/TAZO 4.5GM/DEX-IS 100 ML IV SCH ×3 (06:08→22:00)
[2019-10-08 06:35] LABS: CREATININE 0.6 mg/dL (0.55-1.30); PHOSPHORUS 3.1 mg/dL (2.7-4.5); POTASSIUM 3.2 mmol/L (3.5-5.1)
[2019-10-08 06:52] LABS: BASOPHILS % (AUTO) 0.1 % (0.0-2.0); EOSINOPHILS # (AUTO) 0.6 K/uL (0.0-0.4); EOSINOPHILS % (AUTO) 3.5 % (0.0-4.0); HEMATOCRIT 37.1 % (36-54); LYMPHOCYTES # (AUTO) 0.5 K/uL (1.0-5.5); LYMPHOCYTES % (AUTO) 3.3 % (20.5-51.5); MEAN CORPUSCULAR HEMOGLOBIN 30 pg (27-31); MEAN CORPUSCULAR HGB CONC 32 % (32-36); MEAN CORPUSCULAR VOLUME 92 fL (79.0-98.0); MONOCYTES % (AUTO) 6.1 % (1.7-9.3); NEUTROPHILS # (AUTO) 14.3 K/uL (1.8-7.7); PLATELET COUNT (AUTO) 209 K/uL (130-430); RED BLOOD CELL COUNT(AUTO) 4.05 MIL/uL (4.2-6.2); RED CELL DISTRIBUTION WIDTH 15.4 % (9.0-15.0); WHITE BLOOD COUNT (AUTO) 16.4 K/uL (4.8-10.8)
--- NOTE | 2019-10-08 07:15 | NUR ---
OPENING NOTE SBAR REPORT RECEIVED FROM REJI HORVATH. CARE ASSUMED. PT LAYING IN BED. SEDATED AND INTUBATED. ETT SIZE 7.5 LIP LINE 25. VENT SETTINGS PRESSURE CONTROL 24, BACK-UP RATE 16, FIO2 60%, PEEP 8. PT TOLERATING SETTINGS WELL. 02 SATURATION 97%. PT SINUS RHYTHM ON MONITOR. PT HAS RIGHT UPPER EXTREMITY PICC LINE RUNNING VERSED @ 2 MG/HR, MORPHINE @ 2 MG/HR, NS @ 20 MG/HR, AND TPN @ 93 ML/HR. NO EDEMA NOTED. RADIAL AND PEDAL PULSES NORMAL. PT UPPER ABDOMEN SOFT NON-DISTENDED. LOWER ABDOMEN FIRM NON DISTENDED. PT HAS LEFT NG TUBE IN PLACE SET TO LOW INTERMITTENT SUCTION. BROWN LIQUID IN SUCTION CANISTER. STRINGER CATHETER IN PLACE FLOWING TO GRAVITY. URINE ELIZABETH AND CLEAR. SAFETY PRECAUTION IN PLACE. CALL LIGHT WITHIN REACH. BED LOCKED IN LOWEST POSITION. WILL CONTINUE TO MONITOR.
--- NOTE | 2019-10-08 07:30 | NUR ---
Opening Notes Patient received in bed connected to post hole digger with SR-ST, HR in the 90s-110s. Patient orally intubated and sedated with settings PC 24, back up rate 16, FiO2 45%, PEEP 8 with no signs of distress noted. Patient has a PICC line receiving versed at 2 mg/hr, morphine at 2 mg/hr, and NS at 20 ml/hr. Patient has an NGT connected to low-intermittent suction. Patient has a richardson catheter draining urine. Safety and isolation precautions enforced.
[2019-10-08] MEDS: FAMOTIDINE PF 20 MG/2 ML VIAL IVP SCH (08:10)
[2019-10-08] MEDS: PANTOPRAZOLE SODIUM 40 MG/VIAL (PROTONIX) IVP SCH ×2 (08:10→21:00)
[2019-10-08] MEDS: PSYLLIUM HUSK 1 PKT PACKET PO SCH (08:10)
[2019-10-08] MEDS: CHOLECALCIFEROL (VITAMIN D3) 2,000 UNIT TABLET PO SCH (08:10)
[2019-10-08] MEDS: ASCORBIC ACID 500 MG TABLET PO SCH ×2 (08:10→21:00)
[2019-10-08] MEDS: MINERAL OIL 30 ML UDC PO SCH ×2 (08:12→21:00)
[2019-10-08] MEDS: ALBUTEROL MDI INHALATION 8 GM INH INH SCH ×3 (09:45→23:35)
[2019-10-08] MEDS ORDERED: POTASSIUM CHLORIDE 40 MEQ, LIDOCAINE JECT 2% PF 100 MG 75 MG in NS 250 ML IV ONE (10:00)
[2019-10-08] MEDS: MICAFUNGIN SODIUM 100 MG in NS 100 ML IV SCH (11:26)
--- NOTE | 2019-10-08 12:00 | NUR ---
RN Rounds Patient in no signs of distress at this time.
--- NOTE | 2019-10-08 16:00 | NUR ---
CHG Provided patient with CHG bath and linens changed. Dressing on buttock changed per order. Patient noted to have decreased oxygen saturation of 80% and use of accessory muscles prior to bath, FiO2 increased to 60%. RT notified. Patient tolerated rest of procedure well.
[2019-10-08] MEDS: MIDAZOLAM HCL IN 0.9 % NACL/PF 50 ML IV PRN (16:23)
--- NOTE | 2019-10-08 19:32 | NUR ---
Closing Notes Patient endorsed to manager night RN using SBAR format. Patient in no signs of distress.
[2019-10-08] MEDS: TAMSULOSIN HCL 0.4 MG CAP PO SCH (21:00)
[2019-10-08] MEDS ORDERED: TPN PERIPHERAL IV SCH ×11 (21:00)
[2019-10-08] MEDS ORDERED: NA PHOS IV SCH ×11 (21:00)
[2019-10-08] MEDS ORDERED: [UNRECOGNIZED DRUG - OTHER] IV SCH ×11 (21:00)
[2019-10-08] MEDS: NACL 0.9% 1,000 ML IV SCH (21:00)
[2019-10-08] MEDS ORDERED: SODIUM CHLORIDE IV SCH ×11 (21:00)
[2019-10-09] VITALS (37 sets, daily range): BP systolic 115–144
[2019-10-09] MEDS: PSYLLIUM HUSK 1 PKT PACKET PO SCH ×3 (01:15→21:45)
[2019-10-09] MEDS: METOCLOPRAMIDE HCL 10 MG/2 ML VIAL IVP SCH ×5 (01:15→21:45)
[2019-10-09 07:22] LABS: ALBUMIN 1.3 g/dL (3.4-4.8); BILIRUBIN,DIRECT 0.2 mg/dL (0.0-0.3); CALCIUM 8.3 mg/dL (8.4-11.0); CREATININE 0.51 mg/dL (0.55-1.30); POTASSIUM 3.7 mmol/L (3.5-5.1); TOTAL BILIRUBIN 0.6 mg/dL (0.0-1.0)
--- NOTE | 2019-10-09 07:30 | NUR ---
Opening Notes Pt received from night RN using SBAR.
[2019-10-09] MEDS: ALBUTEROL MDI INHALATION 8 GM INH INH SCH ×2 (07:40→23:26)
--- NOTE | 2019-10-09 07:50 | NUR ---
RT NOTES DECREASED FIO2 DOWN TO 50% PER TITRATION ORDER. DR. GREGORY AND ALEXANDRU BOOTH MADE AWARE. WILL CONTINUE MONITORING.
[2019-10-09] MEDS: FAMOTIDINE PF 20 MG/2 ML VIAL IVP SCH (08:48)
[2019-10-09] MEDS: CHOLECALCIFEROL (VITAMIN D3) 2,000 UNIT TABLET PO SCH (08:48)
[2019-10-09] MEDS: MINERAL OIL 30 ML UDC PO SCH ×2 (08:49→21:45)
[2019-10-09] MEDS: PANTOPRAZOLE SODIUM 40 MG/VIAL (PROTONIX) IVP SCH ×2 (08:49→21:45)
[2019-10-09 08:54] LABS: C-REACTIVE PROTEIN QUANT 24.2 mg/dL (0-0.5)
[2019-10-09] MEDS: ASCORBIC ACID 500 MG TABLET PO SCH ×2 (09:09→21:45)
[2019-10-09] MEDS: MICAFUNGIN SODIUM 100 MG in NS 100 ML IV SCH (11:02)
[2019-10-09] MEDS: INSULIN LISPRO SLIDING SCALE 100 UNITS/ML VIAL (humaLOG) SUBCUT PRN (11:46)
--- NOTE | 2019-10-09 12:30 | NUR ---
Resting Pt resting with no signs of distress, will continue to monitor.
--- NOTE | 2019-10-09 13:30 | NUR ---
RT NOTES TITRATED PEEP DOWN TO 5 AT THIS TIME. ALEXANDRU BOOTH MADE AWARE. NO RESPIRATORY DISTRESS NOTED.
--- NOTE | 2019-10-09 14:03 | NUR ---
Family Spoke to pts daughter Nia, all questions answered update provided.
[2019-10-09] MEDS: PIPERACILLIN/TAZO 4.5GM/DEX-IS 100 ML IV SCH ×2 (14:54→21:46)
--- NOTE | 2019-10-09 15:50 | NUR ---
RT NOTES RN LEOBARDO DECREASED FIO2 TO 40% AT THIS TIME. PT TOLERATING WELL. WILL CONTINUE MONITORING.
--- NOTE | 2019-10-09 18:00 | NUR ---
CHG Pt provided CHG with partial linen change. Pt tolerated well will continue to monitor.
[2019-10-09] MEDS: MIDAZOLAM HCL IN 0.9 % NACL/PF 50 ML IV PRN (19:07)
[2019-10-09] MEDS: MORPHINE I.V. DRIP 100 ML IV PRN (19:08)
--- NOTE | 2019-10-09 19:10 | NUR ---
OPENING NOTE SBAR REPORT RECEIVED FROM LEOBARDO HORVATH. CARE ASSUMED. PT LAYING IN BED. SEDATED AND INTUBATED. ETT SIZE 7.5 LIP LINE 25. VENT SETTINGS PRESSURE CONTROL 24, BACK-UP RATE 16, FIO2 40%, PEEP 5. PT TOLERATING SETTINGS WELL. 02 SATURATION 93%. PT SINUS RHYTHM ON MONITOR. PT HAS RIGHT UPPER EXTREMITY PICC LINE RUNNING VERSED @ 2 MG/HR, MORPHINE @ 2 MG/HR, NS @ 20 MG/HR, AND TPN @ 93 ML/HR. EDEMA TO BILATERAL UPPER AND LOWER EXTREMITIES NOTED. RADIAL AND PEDAL PULSES NORMAL. PT UPPER ABDOMEN SOFT NON-DISTENDED. LOWER ABDOMEN FIRM NON DISTENDED. PT HAS LEFT NG TUBE IN PLACE SET TO LOW INTERMITTENT SUCTION. GREEN LIQUID IN SUCTION CANISTER. STRINGER CATHETER IN PLACE FLOWING TO GRAVITY. URINE ELIZABETH AND CLEAR. SAFETY PRECAUTION IN PLACE. CALL LIGHT WITHIN REACH. BED LOCKED IN LOWEST POSITION. WILL CONTINUE TO MONITOR.
--- NOTE | 2019-10-09 19:30 | NUR ---
Closing Notes Pt endorsed to night RN using SBAR.
[2019-10-09] MEDS ORDERED: [UNRECOGNIZED DRUG - OTHER] IV SCH ×11 (21:00)
[2019-10-09] MEDS ORDERED: TPN PERIPHERAL IV SCH ×11 (21:00)
[2019-10-09] MEDS ORDERED: NA PHOS IV SCH ×11 (21:00)
[2019-10-09] MEDS ORDERED: SODIUM CHLORIDE IV SCH ×11 (21:00)
[2019-10-09] MEDS ORDERED: MINERAL OIL 30 ML UDC ONE (21:19)
[2019-10-09] MEDS: TAMSULOSIN HCL 0.4 MG CAP PO SCH (21:45)
[2019-10-09] MEDS: NACL 0.9% 1,000 ML IV SCH (21:49)
--- NOTE | 2019-10-09 23:00 | NUR ---
RT UPDATE 02 SATURATION 82%. FIO2 RAISED TO 50%. PT O2 SATURATION IMPROVED TO 95%. WILL CONTINUE TO MONITOR
[2019-10-10] VITALS (34 sets, daily range): BP systolic 116–212
[2019-10-10] MEDS: INSULIN LISPRO SLIDING SCALE 100 UNITS/ML VIAL (humaLOG) SUBCUT PRN ×3 (01:20→18:45)
[2019-10-10] MEDS: PIPERACILLIN/TAZO 4.5GM/DEX-IS 100 ML IV SCH ×3 (05:43→21:43)
[2019-10-10] MEDS: METOCLOPRAMIDE HCL 10 MG/2 ML VIAL IVP SCH ×4 (05:44→21:44)
[2019-10-10 06:23] LABS: BASOPHILS % (AUTO) 0.2 % (0.0-2.0); EOSINOPHILS # (AUTO) 1.2 K/uL (0.0-0.4); EOSINOPHILS % (AUTO) 11.2 % (0.0-4.0); HEMATOCRIT 31.1 % (36-54); HEMOGLOBIN 10.2 g/dL (14.0-18.0); LYMPHOCYTES # (AUTO) 0.6 K/uL (1.0-5.5); LYMPHOCYTES % (AUTO) 5.3 % (20.5-51.5); MEAN CORPUSCULAR HEMOGLOBIN 30 pg (27-31); MEAN CORPUSCULAR HGB CONC 33 % (32-36); MEAN CORPUSCULAR VOLUME 92 fL (79.0-98.0); MONOCYTES # (AUTO) 0.9 K/uL (0.0-1.0); MONOCYTES % (AUTO) 8.4 % (1.7-9.3); NEUTROPHILS # (AUTO) 8.2 K/uL (1.8-7.7); NEUTROPHILS % (AUTO) 74.9 % (40.0-70.0); PLATELET COUNT (AUTO) 260 K/uL (130-430); RED BLOOD CELL COUNT(AUTO) 3.37 MIL/uL (4.2-6.2); RED CELL DISTRIBUTION WIDTH 14.9 % (9.0-15.0); WHITE BLOOD COUNT (AUTO) 10.9 K/uL (4.8-10.8)
[2019-10-10 06:47] LABS: ALBUMIN 1.2 g/dL (3.4-4.8); CALCIUM 8.1 mg/dL (8.4-11.0); CREATININE 0.47 mg/dL (0.55-1.30); POTASSIUM 3.4 mmol/L (3.5-5.1); TOTAL BILIRUBIN 0.3 mg/dL (0.0-1.0)
--- NOTE | 2019-10-10 07:30 | NUR ---
Opening Notes Pt received from night RN using SBAR, pt resting in bed with eyes closed connected to vent. Bed in lowest position with HOB elevated to avoid aspiration risk. Joshi cath draining yellow urine to gravity. Bed in lowest position with call light within reach. No signs of acute distress, vital signs stable.
--- NOTE | 2019-10-10 07:42 | NUR ---
CLOSING NOTE PT LAYING IN BED. NO SIGNS AND SYMPTOMS OF DISTRESS NOTED. SBAR REPORT GIVEN TO LEOBARDO HORVATH. CARE ENDORSED.
[2019-10-10] MEDS: ALBUTEROL MDI INHALATION 8 GM INH INH SCH ×3 (07:45→19:18)
[2019-10-10] MEDS: MINERAL OIL 30 ML UDC PO SCH ×2 (09:00→21:44)
[2019-10-10] MEDS: PSYLLIUM HUSK 1 PKT PACKET PO SCH ×2 (09:00→21:44)
[2019-10-10] MEDS ORDERED: ENOXAPARIN SODIUM 40 MG/0.4 ML SYRINGE SUBCUT ONE (09:15)
[2019-10-10 09:17] LABS: C-REACTIVE PROTEIN QUANT 16.9 mg/dL (0-0.5)
[2019-10-10 09:41] LABS: PHOSPHORUS 3.2 mg/dL (2.7-4.5)
--- NOTE | 2019-10-10 10:07 | NUR ---
Family Spoke to pts daughter Nia provided update, all questions answered.
--- NOTE | 2019-10-10 10:12 | NUR ---
Nutrition F/U Admitting Diagnosis: Hypoxia, pneumonia, rule out COVID Medical History Comment: Per MD notes, patient found with COVID-19 infection, viral pneumonia, hypoxia, transaminitis, severe malnutrition. 09/19: Negative for C.diff 09/14 COVID-19 Positive 09/11 09/27: Intubated d/t respiratory failure per MD note 09/28: s/p 1 unit of plasma transfusion 09/28: NGT placement confirmed 10/03: MD notes: Acute Diverticulitis Subjective Information: Pt remains in ICU, RD visit deferred d/t COVID-19 Isolation, limited PPE. Per EMR review, tube feeding has been stopped since 10/06 d/t tachycardiac and pt has been unstable since NGT feeding. NGT was set to intermittent suction and TPN was ordered and pt has improved since. Currently on NPO, TPN infusing as ordered per RN report. Plan of care: PEG and trach tomorrow (Wednesday), no episode of emesis and pt is for possible propofol drip today. RD s/w pharmD and rec to increase infusion rate to 100ml/hr, pharmD concurred. No lipids for possibility of propofol. TPN provides <60% of estimated calorie needs and 88% of upper end of estimated protein needs. Current Diet Order/Nutrition Support: NPO + D20%AA8.5% at 90 ml/hr via peripheral line. PPN provides: 1102 kcal, 92gm protein, 2160ml fluids daily and GIR 1.6gm CHO/kg/min Pertinent Medications: VIT C, VIT D-3, zinc, Insulin, Decadron, Lovenox, Protonix, Reglan, Mineral oil, Piperacillin/tazobactam Pertinent Labs: 10/09 Na 134 L, K 3.4L, BG 157 H, POC BG 163 H, BUN 13 WNL, Cre 0.47L, WBC 10.9H Skin Integrity Comment: Jeffry scale 11, skin tear to lower buttocks per EMR. Per EMR, 2+ pitting edema to Bilateral ankle and R hand. Estimated Energy Expenditure (kcals/day) 2241kcal ([id number] for critical illness on vent) Estimated Protein Required (g/day) 69-104 g/day (1-1.5 gm/kg Adj IBW for acute state) Estimated Fluid Required (l/day) 2.0-2.4 L/day (1 ml/kcal/day for acute state) Problem/Etiology/Signs/Symptoms Altered nutrition related lab values related to acute illness as evidenced by glucose labs and liver function labs. (*ongoing) Predicted suboptimal protein-energy intake r/t acute illness AEB PO intake meeting <75% of estimated nutrient needs. (*ongoing, now on NPO and PPN) Expected Outcomes/Goals Monitor PN tolerance and intakes w/ goal of pt meeting more than 75% of estimated nutritional needs, labs trending WNL, normal GI function, and skin integrity/wt maintenance. Dietitian Recommendations *Continue NPO per MD . *Recommend D20% AA8.5% at 100 ml/hr (goal rate) via peripheral line, No lipids. Provides: 1224 kcal, 102gm protein, 2400 ml and GIR 1.8 gm CHO/kg/min Meets: 55% of estimated calorie needs and 98% of upper end of estimated protein needs. *Continue w/ VIT and Zinc coverage. *Once PEG is placed and ready to use: recommend: Vital AF 1.2 at 60ml/hr (goal rate), start at 10ml/hr and increase by 10ml Q6H to goal rate. FWF 150ml Q6H via GT. Taper off TPN once EN is being tolerated. Follow Up High Risk: F/U in 2-3 days
[2019-10-10] MEDS: PANTOPRAZOLE SODIUM 40 MG/VIAL (PROTONIX) IVP SCH ×2 (10:15→21:44)
[2019-10-10] MEDS: FAMOTIDINE PF 20 MG/2 ML VIAL IVP SCH (10:15)
[2019-10-10] MEDS: ASCORBIC ACID 500 MG TABLET PO SCH ×2 (10:16→21:44)
[2019-10-10] MEDS: CHOLECALCIFEROL (VITAMIN D3) 2,000 UNIT TABLET PO SCH (10:16)
[2019-10-10] MEDS: PROPOFOL DRIP 100 ML IV PRN ×2 (10:24→23:41)
--- NOTE | 2019-10-10 10:24 | NUR ---
Witnessed diprivan infusing at 5mcgs/kg/min on the pump.
--- NOTE | 2019-10-10 10:30 | NUR ---
Dietitian Recommendations *Continue NPO per MD . *Recommend D20% AA8.5% at 100 ml/hr (goal rate) via peripheral line, No lipids. Provides: 1224 kcal, 102gm protein, 2400 ml and GIR 1.8 gm CHO/kg/min Meets: 55% of estimated calorie needs and 98% of upper end of estimated protein needs. *Continue w/ VIT and Zinc coverage. *Once PEG is placed and ready to use: recommend: Vital AF 1.2 at 60ml/hr (goal rate), start at 10ml/hr and increase by 10ml Q6H to goal rate. FWF 150ml Q6H via GT. Taper off TPN once EN is being tolerated. Please see Nutrition F/U note for details. VIJAY, ZEN
--- NOTE | 2019-10-10 10:40 | NUR ---
Witnessed diprivan increased to 10 mcgs/kg/min.
[2019-10-10 11:00] LABS: INR 1.1 (0.80-1.20); PROTHROMBIN TIME 10.8 SECS (9.5-12.5)
--- NOTE | 2019-10-10 13:55 | NUR ---
RT NOTES FIO2 to .45 per titration order. will monitor pt.
[2019-10-10] MEDS ORDERED: POTASSIUM CHLORIDE 20 MEQ in NS 250 ML IV ONE (14:00)
--- NOTE | 2019-10-10 16:45 | NUR ---
CHG Pt provided CHG, tolerated well. Will continue to monitor.
--- NOTE | 2019-10-10 19:25 | NUR ---
OPENING NOTE SBAR REPORT RECEIVED FROM LEOBARDO HORVATH. CARE ASSUMED. PT LAYING IN BED. SEDATED AND INTUBATED. ETT SIZE 7.5 LIP LINE 25. VENT SETTINGS PRESSURE CONTROL 24, BACK-UP RATE 16, FIO2 45%, PEEP 5. PT TOLERATING SETTINGS WELL. 02 SATURATION 91%. PT SINUS RHYTHM ON MONITOR. PT HAS RIGHT UPPER EXTREMITY PICC LINE RUNNING DIPRIVAN @ 10 MCG/KG/MIN, MORPHINE @ 2 MG/HR, NS @ 20 MG/HR, AND TPN @ 90 ML/HR. EDEMA TO BILATERAL UPPER AND LOWER EXTREMITIES NOTED. RADIAL AND PEDAL PULSES NORMAL. PT ABDOMEN SOFT NON-DISTENDED. PT HAS LEFT NG TUBE IN PLACE SET TO LOW INTERMITTENT SUCTION. GREEN LIQUID IN SUCTION CANISTER. STRINGER CATHETER IN PLACE FLOWING TO GRAVITY. URINE ELIZABETH AND CLEAR. SAFETY PRECAUTION IN PLACE. CALL LIGHT WITHIN REACH. BED LOCKED IN LOWEST POSITION. WILL CONTINUE TO MONITOR.
--- NOTE | 2019-10-10 19:30 | NUR ---
Closing Notes Pt endorsed to night RN using SBAR
[2019-10-10] MEDS ORDERED: NA PHOS IV SCH ×11 (21:00)
[2019-10-10] MEDS ORDERED: SODIUM CHLORIDE IV SCH ×11 (21:00)
[2019-10-10] MEDS ORDERED: TPN PERIPHERAL IV SCH ×11 (21:00)
[2019-10-10] MEDS ORDERED: [UNRECOGNIZED DRUG - OTHER] IV SCH ×11 (21:00)
[2019-10-10] MEDS: NACL 0.9% 1,000 ML IV SCH (21:43)
[2019-10-10] MEDS: TAMSULOSIN HCL 0.4 MG CAP PO SCH (21:45)
[2019-10-11] VITALS (34 sets, daily range): BP systolic 118–179
[2019-10-11] MEDS: INSULIN LISPRO SLIDING SCALE 100 UNITS/ML VIAL (humaLOG) SUBCUT PRN ×3 (00:30→18:22)
[2019-10-11] MEDS: METOCLOPRAMIDE HCL 10 MG/2 ML VIAL IVP SCH ×4 (04:22→20:50)
[2019-10-11] MEDS ORDERED: METOCLOPRAMIDE HCL 10 MG/2 ML VIAL ONE (04:26)
[2019-10-11] MEDS: PIPERACILLIN/TAZO 4.5GM/DEX-IS 100 ML IV SCH ×3 (04:55→20:51)
[2019-10-11] MEDS: PROPOFOL DRIP 100 ML IV PRN ×3 (04:56→21:08)
[2019-10-11] MEDS: MORPHINE I.V. DRIP 100 ML IV PRN (04:57)
[2019-10-11 06:00] LABS: ALBUMIN 1.3 g/dL (3.4-4.8); CALCIUM 8.4 mg/dL (8.4-11.0); CREATININE 0.43 mg/dL (0.55-1.30); PHOSPHORUS 3.7 mg/dL (2.7-4.5); POTASSIUM 3.7 mmol/L (3.5-5.1); TOTAL BILIRUBIN 0.3 mg/dL (0.0-1.0)
[2019-10-11] MEDS ORDERED: SIMETHICONE 40 MG/0.6 ML ML ONE (07:17)
[2019-10-11] MEDS ORDERED: MIDAZOLAM HCL 5 MG/5 ML VIAL ONE (07:18)
[2019-10-11] MEDS ORDERED: fentaNYL CITRATE/PF 100 MCG/2 ML AMP ONE ×2 (07:18→13:55)
--- NOTE | 2019-10-11 07:30 | NUR ---
Opening Notes Pt received from night RN using SBAR
[2019-10-11] MEDS: ALBUTEROL MDI INHALATION 8 GM INH INH SCH ×3 (07:46→19:45)
[2019-10-11 08:01] LABS: BASOPHILS % (AUTO) 0.2 % (0.0-2.0); EOSINOPHILS # (AUTO) 0.9 K/uL (0.0-0.4); EOSINOPHILS % (AUTO) 7.7 % (0.0-4.0); HEMOGLOBIN 10.9 g/dL (14.0-18.0); LYMPHOCYTES # (AUTO) 0.4 K/uL (1.0-5.5); LYMPHOCYTES % (AUTO) 3.9 % (20.5-51.5); MEAN CORPUSCULAR HEMOGLOBIN 30 pg (27-31); MEAN CORPUSCULAR HGB CONC 32 % (32-36); MEAN CORPUSCULAR VOLUME 92 fL (79.0-98.0); MONOCYTES % (AUTO) 8.9 % (1.7-9.3); NEUTROPHILS # (AUTO) 9.2 K/uL (1.8-7.7); NEUTROPHILS % (AUTO) 79.3 % (40.0-70.0); PLATELET COUNT (AUTO) 302 K/uL (130-430); RED BLOOD CELL COUNT(AUTO) 3.68 MIL/uL (4.2-6.2); RED CELL DISTRIBUTION WIDTH 14.8 % (9.0-15.0); WHITE BLOOD COUNT (AUTO) 11.6 K/uL (4.8-10.8)
--- NOTE | 2019-10-11 08:50 | NUR ---
Ultra sound entry level installation technician at bedside with pt.
[2019-10-11] MEDS: PSYLLIUM HUSK 1 PKT PACKET PO SCH ×2 (09:00→20:50)
[2019-10-11] MEDS: PANTOPRAZOLE SODIUM 40 MG/VIAL (PROTONIX) IVP SCH ×2 (09:00→20:50)
[2019-10-11] MEDS: CHOLECALCIFEROL (VITAMIN D3) 2,000 UNIT TABLET PO SCH (09:00)
[2019-10-11] MEDS: FAMOTIDINE PF 20 MG/2 ML VIAL IVP SCH (09:00)
[2019-10-11] MEDS: ASCORBIC ACID 500 MG TABLET PO SCH ×2 (09:00→20:50)
[2019-10-11] MEDS: MINERAL OIL 30 ML UDC PO SCH ×2 (09:00→20:50)
--- NOTE | 2019-10-11 09:50 | NUR ---
GI GI is at pts bedside, time out performed. PEG placement scheduled.
--- NOTE | 2019-10-11 12:00 | NUR ---
RT NOTES Transported pt from ICU to O.R. pt. remained on the ventilator. @1250 Dr Jay instructed RT to change FIO2 to 100% @1325 Pt was picked up from O.R. for transport to ICU. Found pt on AC 16 600 100 +5. Once back in the unit, Dr Jay instructed Rt to change back to PC settings and slowly titrate FIO2. Trach tube is secure, no resistance during tracheal sxn.
--- NOTE | 2019-10-11 12:30 | NUR ---
Off Unit Pt placed on transport monitor. RT at bedside. Pt taken off unit to OR
--- NOTE | 2019-10-11 13:04 | NUR ---
TPN Recommendation RD received phone call from pharmD asking for TPN rec as pt now has PICC line. RD reviewed EMR, s/w ICU charger operator who reported that pt is still on Diprivan at 20mcg/kg/min which provides 291 kcal/day. PEG has been placed earlier today and pt is now having trach. Pt is a/w orders from Surgery to start tube feeding via GT. BG lab values remain elevated (170mg/dL High) and triglyceride is WNL (114). Dietitian Recommendation *Keep pt NPO *Recommend: D50% AA10% at 75ml/hr (goal rate), no lipids via central line. With Propofol, Provides: 2181 kcal, 90gm protein, 1800ml and GIR 3.4gm CHO/kg/min Meets: 97% of estimated calorie needs and 87% of upper end of estimated protein needs. *Once Diprivan is discontinued, recommend: add lipids. D50% AA10% at 65ml/hr (goal rate), IL20% at 10ml/hr via central line. Provides: 2118 kcal, 78gm protein, 1800ml fluids daily and GIR 2.9gm CHO/kg/min Meets: 95% of estimated calorie needs and 75% of upper end of estimated protein needs. RD to follow per nutrition care standards. RD s/w Bach for TPN via central line rec. ZEN LINARES
--- NOTE | 2019-10-11 13:10 | NUR ---
House Keeping Performed house keeping to pts room since pt is in OR. Floors mopped and trans / linen taken out. All suction canisters replaced.
[2019-10-11] MEDS ORDERED: fentaNYL CITRATE/PF 100 MCG/2 ML AMP IVP PRN ×2 (13:15)
--- NOTE | 2019-10-11 13:43 | NUR ---
O.R. Pt returned to ICU 7 from OR. Pt reconnected to in room monitor post monitor restarting.
[2019-10-11] MEDS ORDERED: ROCURONIUM BROMIDE 10 MG/ML (ZEMURON) ONE (13:55)
[2019-10-11] MEDS ORDERED: LIDOCAINE 1% 10 MG/ML, 20 ML MDV ONE (13:55)
[2019-10-11] MEDS ORDERED: PROPOFOL 200MG/ 20ML VIAL (DIPRIVAN) IV ONE (13:55)
[2019-10-11] MEDS ORDERED: NS IRRIG SOLN 1000 ML IR ONE (13:55)
[2019-10-11] MEDS ORDERED: MIDAZOLAM HCL 5 MG/ML VIAL (VERSED) IV ONE (13:55)
--- NOTE | 2019-10-11 14:00 | NUR ---
Witnessed RN titrate Diprivan down to 30 mcg/kg/min
--- NOTE | 2019-10-11 14:39 | NUR ---
Family Spoke to pts daughter Nia and provided update. All questions answered at this time.
--- NOTE | 2019-10-11 14:57 | NUR ---
WOUND EVALUATION: Late note for 10/11/2019 at 1457 secondary to patient care. Wound Consult received from Dr. Herbert. Thank you, Dr. Herbert, for the consult. Patient received in a [place] Bed with an IsoFlex LAISHA mattress with low air-loss therapy, sedated, on ventilator. Patient is unable to turn in bed independently. Jeffry Score is an 11. Past Medical History: Cholecystectomy, Hernia Repair, left shoulder arthroscopic surgery. Recent Labs: WBC 11.6, RBC 3.68, hemoglobin 10.9, hematocrit 34.0, BUN 11, creatinine 0.43, GFR 212, glucose 170, POC glucose 154, C-reactive protein 17.0, serum total protein 5.4, albumin 1.3, d-dimer 3980. Microbiology: Blood culture results x2 negative. Stool C. difficile results negative. MRSA screen results negative. Endotracheal sputum culture results positive for yeast. Intrinsic factors that delay wound healing: Hyperglycemia, hypoalbuminemia, Sepsis, Respiratory Failure, COVID-19 Pneumonia, Hypoxemic Respiratory Failure. Extrinsic factors that delay wound healing: Immobility. Wound Assessment: 1. Buttocks/partial segment of lower Sacral areas: sDTI. Site has open area with 70% dark red tissue, 30% dark discolored tissue. No odor, no drainage. Surrounding tissue has dark discoloration and blanchable redness. sDTI appears to be still evolving. Open area measures 6.0 cm x 8.5 cm. Total site measures 9.5 cm x 16.0 cm. Recommend: Cleanse wound with normal saline. Apply moisture barrier cream to carissa-wounds and around sDTI area. Cover with Sacral foam dressing. Perform wound care daily, and as needed for dressing soiling or dislodgement. 2. Left Heel: Blanchable redness. 3. Right Heel: Blanchable redness. Recommend: Elevate, offload and float bilateral heels with one pillow lengthwise under each extremity at all times. Ensure that heels do not touch the bed or other surfaces at any time. Also recommend: Reposition patient side to side only every 2 hours with pillow support and off-load pressure areas with pillows for pressure re-distribution. Offload, elevate and float bilateral heels with pillows. Perform skin care and monitor skin integrity Q shift. Use moisture barrier cream on buttocks and other moisture susceptible areas QID and as needed for soiling. Place patient on an Envella fluidized therapy bed. Addendum: 10/12/19 at 1001 by Carroll Gerber RN For site 1, apply Venelex ointment to non-intact skin areas daily and prn with each dressing change.
--- NOTE | 2019-10-11 15:45 | NUR ---
Witnessed RN titrate Diprivan down to 25 mcg/kg/min and morphine up to 8mg/hr
[2019-10-11] MEDS ORDERED: DIPHENHYDRAMINE INJ 50 MG/ML VIAL IVP ONE (16:00)
[2019-10-11] MEDS ORDERED: methylPREDNISolone SOD SUCC/PF 62.5 MG/ML VIAL IVP ONE (16:00)
--- NOTE | 2019-10-11 16:00 | NUR ---
MD Dr. Arriaga informed that pts is exhibiting flushed cheeks that a swollen, slightly swollen tongue, and HR of 120's . New orders received. also informed of bilateral venous doppler result.
--- NOTE | 2019-10-11 19:15 | NUR ---
OPENING NOTE SBAR REPORT RECEIVED FROM LEOBARDO HORVATH. CARE ASSUMED. PT LAYING IN BED. SEDATED. PT HAD TRACH PLACEMENT TODAY. TRACH SHILEY 8. VENT SETTINGS PRESSURE CONTROL 24, BACK-UP RATE 16, FIO2 100%, PEEP 5. 02 SATURATION 81%. PULMO CONSULT PAGED. PT SINUS TACHY ON MONITOR. PT HAS RIGHT UPPER EXTREMITY PICC LINE RUNNING DIPRIVAN @ 25 MCG/KG/MIN, MORPHINE @ 8 MG/HR, NS @ 20 MG/HR, AND TPN @ 90 ML/HR. EDEMA TO BILATERAL UPPER AND LOWER EXTREMITIES NOTED. FACIAL SWELLING NOTED. RADIAL AND PEDAL PULSES NORMAL. PT ABDOMEN SOFT NON-DISTENDED. PEG IN PLACE CLAMPED. ABDOMINAL BINDER PRESENT. STRINGER CATHETER IN PLACE FLOWING TO GRAVITY. URINE ELIZABETH AND CLEAR. SAFETY PRECAUTION IN PLACE. CALL LIGHT WITHIN REACH. BED LOCKED IN LOWEST POSITION. WILL CONTINUE TO MONITOR.
--- NOTE | 2019-10-11 19:20 | NUR ---
Closing Notes Pt endorsed to night RN using SBAR.
--- NOTE | 2019-10-11 20:05 | NUR ---
MD UPDATE PT O2 SATURATION 75%. SPOKE TO FILENET ADMIN ANATOLIY REGARDING OXYGENATION. ORDERED PEEP TO BE CHANGED TO 8. ORDERS UPDATED. WILL CONTINUE TO MONITOR.
[2019-10-11] MEDS: TAMSULOSIN HCL 0.4 MG CAP PO SCH (20:50)
[2019-10-11] MEDS: NACL 0.9% 1,000 ML IV SCH (20:53)
[2019-10-11] MEDS ORDERED: NA PHOS IV SCH ×11 (21:00)
[2019-10-11] MEDS ORDERED: SODIUM CHLORIDE IV SCH ×11 (21:00)
[2019-10-11] MEDS ORDERED: FAT EMULSIONS 250 ML IV SCH (21:00)
[2019-10-11] MEDS ORDERED: TPN PERIPHERAL IV SCH ×11 (21:00)
[2019-10-11] MEDS ORDERED: [UNRECOGNIZED DRUG - OTHER] IV SCH ×11 (21:00)
--- NOTE | 2019-10-11 21:45 | NUR ---
MD UPDATE SPOKE TO MD JOHNSON REGARDING VENOUS DOPPLER RESULTS. NO NEW ORDERS. WILL CONTINUE TO MONITOR.
--- NOTE | 2019-10-11 22:00 | NUR ---
MORPHINE TITRATION WITNESSED JUDI RN TITRATE MORPHINE DRIP TO 7 MG/HR PER ORDERS. WILL CONTINUE TO MONITOR.
--- NOTE | 2019-10-11 23:00 | NUR ---
MORPHINE TITRATION WITNESSED JUDI RN TITRATE MORPHINE DRIP TO 6 MG/HR PER ORDERS. WILL CONTINUE TO MONITOR.
[2019-10-12] VITALS (31 sets, daily range): BP systolic 83–131
--- NOTE | 2019-10-12 | NUR ---
MORPHINE TITRATION WITNESSED JUDI RN TITRATE MORPHINE DRIP TO 5 MG/HR PER ORDERS. WILL CONTINUE TO MONITOR.
--- NOTE | 2019-10-12 01:00 | NUR ---
MORPHINE TITRATION WITNESSED JUDI RN TITRATE MORPHINE DRIP TO 4 MG/HR PER ORDERS. WILL CONTINUE TO MONITOR.
[2019-10-12] MEDS: MORPHINE I.V. DRIP 100 ML IV PRN (01:16)
[2019-10-12] MEDS: INSULIN LISPRO SLIDING SCALE 100 UNITS/ML VIAL (humaLOG) SUBCUT PRN ×4 (01:17→18:18)
--- NOTE | 2019-10-12 04:00 | NUR ---
MORPHINE TITRATION WITNESSED JUDI RN TITRATE MORPHINE DRIP TO 3 MG/HR PER ORDERS. WILL CONTINUE TO MONITOR.
--- NOTE | 2019-10-12 05:00 | NUR ---
MORPHINE TITRATION WITNESSED JUDI RN TITRATE MORPHINE DRIP TO 2 MG/HR PER ORDERS. WILL CONTINUE TO MONITOR.
[2019-10-12] MEDS: METOCLOPRAMIDE HCL 10 MG/2 ML VIAL IVP SCH ×4 (05:04→22:00)
[2019-10-12] MEDS: PIPERACILLIN/TAZO 4.5GM/DEX-IS 100 ML IV SCH (05:05)
--- NOTE | 2019-10-12 07:15 | NUR ---
CLOSING NOTE PT LAYING IN BED. NO SIGNS OR SYMPTOMS OF DISTRESS NOTED. SBAR REPORT GIVEN TO TONI HORVATH. CARE ENDORSED.
--- NOTE | 2019-10-12 07:25 | NUR ---
OPENING NOTE Patient report received via SBAR from endorsing RN
[2019-10-12 08:27] LABS: BASOPHILS % (AUTO) 0.2 % (0.0-2.0); EOSINOPHILS % (AUTO) 0.1 % (0.0-4.0); HEMOGLOBIN 10.9 g/dL (14.0-18.0); LYMPHOCYTES # (AUTO) 0.2 K/uL (1.0-5.5); LYMPHOCYTES % (AUTO) 1.3 % (20.5-51.5); MEAN CORPUSCULAR HEMOGLOBIN 29 pg (27-31); MEAN CORPUSCULAR HGB CONC 30 % (32-36); MEAN CORPUSCULAR VOLUME 97 fL (79.0-98.0); MONOCYTES # (AUTO) 0.5 K/uL (0.0-1.0); NEUTROPHILS # (AUTO) 12.6 K/uL (1.8-7.7); NEUTROPHILS % (AUTO) 94.4 % (40.0-70.0); PLATELET COUNT (AUTO) 331 K/uL (130-430); RED BLOOD CELL COUNT(AUTO) 3.72 MIL/uL (4.2-6.2); RED CELL DISTRIBUTION WIDTH 14.5 % (9.0-15.0); WHITE BLOOD COUNT (AUTO) 13.4 K/uL (4.8-10.8)
--- NOTE | 2019-10-12 08:30 | NUR ---
ROUND Dr. Baldwin in to see patient, no new orders
--- NOTE | 2019-10-12 08:40 | NUR ---
PAGED PAGED TIERRA VASQUEZ AT [phone] SPOKE WITH XOCHITL.
--- NOTE | 2019-10-12 08:50 | NUR ---
MD CALL Dr. Malik updated about patient condition, no new orders
[2019-10-12 09:00] LABS: C-REACTIVE PROTEIN QUANT 12.8 mg/dL (0-0.5)
[2019-10-12] MEDS ORDERED: ENOXAPARIN SODIUM 100 MG/ML SYRINGE SUBCUT SCH (09:00)
[2019-10-12 09:07] LABS: ALANINE AMINOTRANSFERASE 71 U/L (12-78); ALBUMIN 1.3 g/dL (3.4-4.8); ASPARTATE AMINOTRANSFERASE 65 U/L (10-37); CALCIUM 8.7 mg/dL (8.4-11.0); CHLORIDE 100 mmol/L (98-107); GLUCOSE 387 mg/dL (70-99); SODIUM SERUM 135 mmol/L (136-145); TOTAL BILIRUBIN 0.8 mg/dL (0.0-1.0); UREA NITROGEN, BLOOD 36 mg/dL (8-21)
[2019-10-12] MEDS: MINERAL OIL 30 ML UDC PO SCH ×2 (09:07→21:46)
[2019-10-12] MEDS: PSYLLIUM HUSK 1 PKT PACKET PO SCH ×2 (09:07→21:46)
[2019-10-12] MEDS: ASCORBIC ACID 500 MG TABLET PO SCH ×2 (09:07→21:46)
[2019-10-12] MEDS: CHOLECALCIFEROL (VITAMIN D3) 2,000 UNIT TABLET PO SCH (09:07)
[2019-10-12] MEDS: PANTOPRAZOLE SODIUM 40 MG/VIAL (PROTONIX) IVP SCH ×2 (09:07→21:43)
[2019-10-12] MEDS: FAMOTIDINE PF 20 MG/2 ML VIAL IVP SCH (09:07)
[2019-10-12 09:13] LABS: GFR AFRICAN AMERICAN 37 mL/min (>90)
[2019-10-12 09:15] LABS: ANION GAP < 3 (5-15); PHOSPHORUS 10.1 mg/dL (2.7-4.5); POTASSIUM 6.7 mmol/L (3.5-5.1)
--- NOTE | 2019-10-12 09:17 | NUR ---
PAGED PAGED YOLANDA CONTRERAS AT [phone] SPOKE WITH TARSHA.
--- NOTE | 2019-10-12 09:27 | NUR ---
Dr. Herbert notified of pt's labs and condition, new orders made and carried out.
--- NOTE | 2019-10-12 09:28 | NUR ---
CONSULTATION PAGED PRIORITY: ROUTINE REASON FOR CONSULTATION?:ELEVATED POTASSIUM AND PHOSPHORUS WAS CONSULT CALLED:Y PERSON WHO WAS NOTIFIED:GEOVANNA CONSULTING PHYSICIAN:ENRIQUE GIBBONS WARM IN WORKER SPECIALTY:NEPHRO WARM IN WORKER PHONE NUMBER:[phone] REQUESTING PHYSICIAN:YOLANDA CONTRERAS
[2019-10-12] MEDS ORDERED: INSULIN NPH 100 UNITS/ML 10 ML VIAL SUBCUT ONE ×2 (09:45)
[2019-10-12] MEDS: ALBUTEROL MDI INHALATION 8 GM INH INH SCH ×3 (10:08→22:00)
[2019-10-12] MEDS: BALSAM PERU/CASTOR OIL 60 GM OINT...G. TP SCH (10:15)
--- NOTE | 2019-10-12 11:00 | NUR ---
Witnessed diprivan drip titration to 20 mcg/kg/min.
--- NOTE | 2019-10-12 11:00 | NUR ---
ROUND Dr. Montiel in to see patient, physician entered orders
[2019-10-12] MEDS ORDERED: HEPARIN SODIUM,PORCINE 5000 UNITS/ML VIAL ONE (11:23)
[2019-10-12] MEDS ORDERED: LORazepam 2 MG/ML VIAL ONE (12:00)
--- NOTE | 2019-10-12 12:00 | NUR ---
Witness diprivan drip titration to 15 mcg/kg/min.
[2019-10-12] MEDS: CEFEPIME 1 GM in D5W 50 ML IV SCH (12:12)
[2019-10-12] MEDS: PROPOFOL DRIP 100 ML IV PRN (12:13)
[2019-10-12] MEDS ORDERED: HEPARIN SODIUM, PORCINE 10,000 UNITS/ 10 ML VIAL MC ONE (12:15)
--- NOTE | 2019-10-12 12:30 | NUR ---
ROUND Dr. Olmstead in to see patient, physician contacted family and consent received for Hemodialysis and Central Line placement. Physician inserted central line to right femoral site. Dialysis scheduled for today
[2019-10-12] MEDS ORDERED: COMMUNICATION ORDER XX ONE ×2 (12:45→18:30)
--- NOTE | 2019-10-12 13:45 | NUR ---
Nursing Note Patient's family at [facility], Bart Marquez and Dr. Malik spoke with family and answered questions. Patient's would like to visit patient in person tomorrow, Change Coordinator aware.
[2019-10-12] MEDS ORDERED: *HEPARIN PER PHARMACY XX PRN (14:00)
--- NOTE | 2019-10-12 14:10 | NUR ---
MD ROUND Dr. Herbert in to see patient, physician entered orders
[2019-10-12] MEDS ORDERED: HEPARIN SODIUM,PORCINE 2000 UNITS/0.4 ML BOLUS IVP PRN (14:15)
[2019-10-12] MEDS ORDERED: HEPARIN SODIUM,PORCINE 3000 UNITS/0.6 ML BOLUS IVP PRN (14:15)
[2019-10-12] MEDS: HEPARIN 25,000 UNITS/D5W 250ML 250 ML IV PRN (17:00)
--- NOTE | 2019-10-12 17:20 | NUR ---
Nursing Note Patient moved to specialized bed, patient's wound care performed, patient repositioned in bed
--- NOTE | 2019-10-12 17:22 | NUR ---
PAGED PAGED YOLANDA CONTRERAS AT [phone] SPOKE WITH SHAILA.
--- NOTE | 2019-10-12 17:50 | NUR ---
Nursing Note Dialysis nurse at bedside, dialysis started
[2019-10-12] MEDS: DEXAMETHASONE SOD PHOSPHATE 10 MG/ML VIAL IVP SCH (18:00)
[2019-10-12] MEDS ORDERED: ALBUMIN HUMAN 25% 200 ML IV ONE ×2 (18:00→18:44)
[2019-10-12] MEDS ORDERED: LevETIRAcetam 500 MG/5 ML UDC ORAL LIQUID GT ONE (18:30)
--- NOTE | 2019-10-12 19:31 | NUR ---
CLOSING NOTE Patient report given to nightshift RN via SBAR
[2019-10-12] MEDS: LORazepam 2 MG/ML VIAL IVP PRN (19:34)
--- NOTE | 2019-10-12 19:35 | NUR ---
OPENING NOTE: Received SBAR report from off coming RN for continuity of care. Pt in bed receiving dialysis, legal specialist at bedside. Pt has a tracheostomy with ventilator, pressure control 24, RR 16, FiO2 100%, PEEP 10. R) upper arm PICC in place with NS infusing @ 20 ml/hr, Diprivan gtt @ 15 mcg/kg/min, Morphine @ 2mg/hr, Heparin gtt @ 1,200 units/hr. R) femoral emily cath in place. Joshi catheter in place and draining minimally to gravity. Will continue to monitor and assess.
--- NOTE | 2019-10-12 19:40 | NUR ---
Dr. Arriaga rounding on patient and POC discussed.
--- NOTE | 2019-10-12 19:50 | NUR ---
Day shift RN endorsed that two full body seizures were witnessed during day shift. Upon initial assessment pt observed to be laying in bed with possible seizure like activity to his lower body. Administered PRN ativan for seizure like activity per MAR. Will continue to monitor and assess.
--- NOTE | 2019-10-12 20:30 | NUR ---
Levophed gtt initiated. Will continue to monitor and titrate accordingly.
[2019-10-12] MEDS ORDERED: MVI IV SCH ×21 (21:00)
[2019-10-12] MEDS ORDERED: TRACE ELEMENTS IV SCH ×21 (21:00)
[2019-10-12] MEDS ORDERED: [UNRECOGNIZED DRUG - OTHER] IV SCH ×7 (21:00)
[2019-10-12] MEDS ORDERED: SODIUM CHLORIDE IV SCH ×14 (21:00)
[2019-10-12] MEDS ORDERED: TPN PERIPHERAL IV SCH ×7 (21:00)
[2019-10-12] MEDS ORDERED: [UNRECOGNIZED DRUG - OTHER] IV SCH ×7 (21:00)
[2019-10-12] MEDS ORDERED: SODIUM ACETATE IV SCH ×7 (21:00)
[2019-10-12] MEDS ORDERED: TPN CENTRAL IV SCH ×14 (21:00)
[2019-10-12] MEDS: NACL 0.9% 1,000 ML IV SCH (21:00)
[2019-10-12] MEDS ORDERED: [UNRECOGNIZED DRUG - OTHER] IV SCH ×7 (21:00)
--- NOTE | 2019-10-12 21:40 | NUR ---
Called Dr. Arriaga with ABG results. Awaiting new orders. Will continue to monitor and assess.
[2019-10-12] MEDS: metroNIDAZOLE 500 mg/NS 100 ML IV SCH (21:42)
[2019-10-12] MEDS: TAMSULOSIN HCL 0.4 MG CAP PO SCH (21:44)
[2019-10-12] MEDS: LevETIRAcetam 500 MG/5 ML UDC ORAL LIQUID GT SCH (21:47)
[2019-10-12] MEDS ORDERED: SODIUM BICARBONATE 8.4% JECT 50 MEQ/50 ML SYRINGE IVP ONE (22:00)
[2019-10-12 22:33] LABS: ALBUMIN 2.1 g/dL (3.4-4.8); CALCIUM 8.1 mg/dL (8.4-11.0); CREATININE 2.33 mg/dL (0.55-1.30); POTASSIUM 5.6 mmol/L (3.5-5.1); TOTAL BILIRUBIN 1.3 mg/dL (0.0-1.0)
--- NOTE | 2019-10-12 22:48 | NUR ---
DR BRI rAriaga called regarding CBC, CMP, Lactic Acid drawn after dialysis. Only CMP lab results available and given to DR. Talya gee. ABG in AM.
[2019-10-12] MEDS: NOREPINEPHRINE BITARTRATE 4 MG in NS 246 ML IV PRN (23:59)
[2019-10-13] VITALS (35 sets, daily range): BP systolic 86–137
[2019-10-13 00:41] LABS: HEMATOCRIT 28.6 % (36-54); HEMOGLOBIN 8.8 g/dL (14.0-18.0); MEAN CORPUSCULAR HEMOGLOBIN 30 pg (27-31); MEAN CORPUSCULAR VOLUME 96 fL (79.0-98.0); RED BLOOD CELL COUNT(AUTO) 2.98 MIL/uL (4.2-6.2); WHITE BLOOD COUNT (AUTO) 21.7 K/uL (4.8-10.8)
[2019-10-13 00:42] LABS: MEAN CORPUSCULAR HGB CONC 31 % (32-36); PLATELET COUNT (AUTO) 179 K/uL (130-430)
[2019-10-13 00:45] LABS: BAND % (MANUAL) 39 % (0-6)
[2019-10-13 00:47] LABS: ATYPICAL LYMPHOCYTES % 0 % (0-0); LYMPHOCYTES % (MANUAL) 4 % (20-46); MONOCYTES % (MANUAL) 7 % (0-11)
[2019-10-13 00:48] LABS: BASOPHILS % (MANUAL) 0 % (0-2); EOSINOPHILS % (MANUAL) 0 % (0-7)
[2019-10-13] MEDS: LORazepam 2 MG/ML VIAL IVP PRN ×2 (01:08→05:07)
[2019-10-13] MEDS: INSULIN LISPRO SLIDING SCALE 100 UNITS/ML VIAL (humaLOG) SUBCUT PRN ×3 (01:09→13:22)
--- NOTE | 2019-10-13 01:30 | NUR ---
Heparin gtt titrated to 1,100 units/hr per protocol.
[2019-10-13] MEDS: METOCLOPRAMIDE HCL 10 MG/2 ML VIAL IVP SCH ×4 (05:06→21:03)
[2019-10-13 05:17] LABS: BASOPHILS # (AUTO) 0.1 K/uL (0.0-0.2); BASOPHILS % (AUTO) 0.4 % (0.0-2.0); EOSINOPHILS # (AUTO) 0.1 K/uL (0.0-0.4); EOSINOPHILS % (AUTO) 0.8 % (0.0-4.0); HEMATOCRIT 28.4 % (36-54); LYMPHOCYTES # (AUTO) 0.3 K/uL (1.0-5.5); LYMPHOCYTES % (AUTO) 1.9 % (20.5-51.5); MEAN CORPUSCULAR HEMOGLOBIN 30 pg (27-31); MEAN CORPUSCULAR HGB CONC 32 % (32-36); MEAN CORPUSCULAR VOLUME 95 fL (79.0-98.0); MONOCYTES # (AUTO) 1.6 K/uL (0.0-1.0); NEUTROPHILS # (AUTO) 15.9 K/uL (1.8-7.7); NEUTROPHILS % (AUTO) 87.9 % (40.0-70.0); PLATELET COUNT (AUTO) 187 K/uL (130-430); RED CELL DISTRIBUTION WIDTH 14.2 % (9.0-15.0); WHITE BLOOD COUNT (AUTO) 18.1 K/uL (4.8-10.8)
[2019-10-13 05:45] LABS: C-REACTIVE PROTEIN QUANT 8.4 mg/dL (0-0.5); CALCIUM 7.8 mg/dL (8.4-11.0); CREATININE 2.91 mg/dL (0.55-1.30); PHOSPHORUS 6.5 mg/dL (2.7-4.5); POTASSIUM 4.9 mmol/L (3.5-5.1); TOTAL BILIRUBIN 1.4 mg/dL (0.0-1.0)
[2019-10-13] MEDS: ALBUTEROL MDI INHALATION 8 GM INH INH SCH ×2 (06:00→15:25)
--- NOTE | 2019-10-13 07:25 | NUR ---
CLOSING NOTE: Endorsed SBAR report to oncoming RN for continuity of care.
--- NOTE | 2019-10-13 07:30 | NUR ---
Opening Note Received plan of care via sbar from endorsing ALEXANDRU Sparrow.
--- NOTE | 2019-10-13 08:05 | NUR ---
Witnessed heart rate at 37 and BP 71/32. Checked for pulse and no pulse palpable or auscultated via doppler. Began CPR and called a code. RT and MD Arriaga and charge Livier at bedside. Received order for Atropine via IVP. Pulse then palpable left carotid and right femoral. Continued monitoring of patient. Vitals are 118 HR, 112/70, 99 SPO2 and respiration 24. Ensured safety measured in place prior to leaving room.
[2019-10-13] MEDS ORDERED: ATROPINE SULFATE 0.4 MG/ML VIAL ONE (08:28)
[2019-10-13] MEDS ORDERED: NOREPINEPHRINE 4 MG/4 ML VIAL IV ONE (08:35)
--- NOTE | 2019-10-13 08:40 | NUR ---
Dr. Clark at [facility]. Provided update on patient. Hold Tubefeeding but Meds okay to administer via gtube.
--- NOTE | 2019-10-13 09:10 | NUR ---
Dr. Arriaga at bedside post code. Received order to start 100 meq Bicarb in D5w at 75 cc IV continuos.
[2019-10-13] MEDS: BALSAM PERU/CASTOR OIL 60 GM OINT...G. TP SCH (09:32)
[2019-10-13] MEDS: INSULIN NPH 100 UNITS/ML 10 ML VIAL SUBCUT SCH ×2 (09:38→17:06)
[2019-10-13] MEDS: metroNIDAZOLE 500 mg/NS 100 ML IV SCH ×2 (09:47→21:03)
[2019-10-13] MEDS: ASCORBIC ACID 500 MG TABLET PO SCH ×2 (09:49→21:00)
[2019-10-13] MEDS: MINERAL OIL 30 ML UDC PO SCH ×2 (09:49→20:56)
[2019-10-13] MEDS: FAMOTIDINE PF 20 MG/2 ML VIAL IVP SCH (09:49)
[2019-10-13] MEDS: CHOLECALCIFEROL (VITAMIN D3) 2,000 UNIT TABLET PO SCH (09:49)
[2019-10-13] MEDS: PSYLLIUM HUSK 1 PKT PACKET PO SCH ×2 (09:49→20:57)
[2019-10-13] MEDS: PANTOPRAZOLE SODIUM 40 MG/VIAL (PROTONIX) IVP SCH ×2 (09:49→20:57)
[2019-10-13] MEDS: CEFEPIME 1 GM in D5W 50 ML IV SCH (10:38)
[2019-10-13] MEDS: LevETIRAcetam 500 MG/5 ML UDC ORAL LIQUID GT SCH ×2 (10:38→20:59)
[2019-10-13] MEDS: SODIUM BICARBONATE 8.4% JECT 100 MEQ in D5W 1,000 ML IV SCH (10:39)
--- NOTE | 2019-10-13 12:18 | NUR ---
Nutrition F/U Admitting Diagnosis: Hypoxia, pneumonia, rule out COVID Medical History Comment: Per MD notes, patient found with COVID-19 infection, viral pneumonia, hypoxia, transaminitis, severe malnutrition. 09/19: Negative for C.diff 09/14 COVID-19 Positive 09/11 09/27: Intubated d/t respiratory failure per MD note 09/28: s/p 1 unit of plasma transfusion 09/28: NGT placement confirmed 10/03: MD notes: Acute Diverticulitis 10/10: s/p PEG and Trach placement 10/11: G-Tube feedings on hold until okay to feed enterally per surgery per MD note 10/12: s/p Code for bradycardia and ongoing acidosis Subjective Information: Pt remains in ICU, RD visit deferred d/t COVID-19 Isolation, limited PPE. S/p PEG and Trach 10/10, s/p central line placement for HD on R femoral area w/ HD initiated on 10/11 per MD note. Per EMR review, tube feeding has been on hold until okay to feed enterally per surgery. MD note reported pt's condition worsening and pt is s/p code w/ bradycardia this morning. RD spoke w/ RN via phone, who stated that pt off propofol and TPN is modified to D20%AA10% at 100 ml/hr. Per MD note, pt not expected to survive next 24-48 hours. Current TPN is not adequate for pt's estimated needs. Current Diet Order/Nutrition Support: NPO + D20%AA10% at 100 ml/hr via peripheral line. PPN provides: 1296 kcal, 120gm protein, 2400ml fluids daily and GIR 2.4gm CHO/kg/min Pertinent Medications: VIT C, VIT D-3, zinc, Insulin, Decadron, Lovenox, Protonix, Reglan, Mineral oil, Keppra, Heparin, Metamucil, Pepcid Pertinent Labs: 10/12 Na 135 L, K 4.9WNL, BG 339 H, POC BG 355 H, BUN 39H, Cre 2.91H, WBC 18.1H Skin Integrity Comment: Jeffry scale 11, sDTI Buttocks, Blanchable redness Bilateral heels per [facility] note (10/10). Per EMR, 2+ pitting edema to Bilateral ankle and R hand. Estimated Energy Expenditure (kcals/day) 2241kcal ([id number] for critical illness on vent) Estimated Protein Required (g/day) 69-104 g/day (1-1.5 gm/kg Adj IBW for acute state) Estimated Fluid Required (l/day) 2.0-2.4 L/day (1 ml/kcal/day for acute state) Problem/Etiology/Signs/Symptoms Altered nutrition related lab values related to acute illness as evidenced by glucose labs and liver function labs. (*ongoing, regressing) Predicted suboptimal protein-energy intake r/t acute illness AEB PO intake meeting <75% of estimated nutrient needs. (*ongoing, now on NPO and PPN) Expected Outcomes/Goals Monitor PN tolerance and intakes w/ goal of pt meeting more than 75% of estimated nutritional needs, labs trending WNL, normal GI function, and skin integrity/wt maintenance. Dietitian Recommendations *Continue NPO per MD . *Recommend D20% AA10% at 100 ml/hr (goal rate) via peripheral line, No lipids. Provides: 1296 kcal, 102gm protein, 2400 ml and GIR 2.4 gm CHO/kg/min Meets: 58% of estimated calorie needs and 98% of upper end of estimated protein needs. *Continue w/ VIT and Zinc coverage. *Once TF via PEG is medically feasible: recommend: Vital AF 1.2 at 60ml/hr (goal rate), start at 10ml/hr and increase by 10ml Q6H to goal rate. FWF 150ml Q6H via GT. Taper off TPN once EN is being tolerated. Follow Up High Risk: F/U in 2-3 days
--- NOTE | 2019-10-13 12:33 | NUR ---
Dietitian Recommendations *Continue NPO per MD . *Recommend D20% AA10% at 100 ml/hr (goal rate) via peripheral line, No lipids. Provides: 1296 kcal, 102gm protein, 2400 ml and GIR 2.4 gm CHO/kg/min Meets: 58% of estimated calorie needs and 98% of upper end of estimated protein needs. *Continue w/ VIT and Zinc coverage. *Once TF via PEG is medically feasible: recommend: Vital AF 1.2 at 60ml/hr (goal rate), start at 10ml/hr and increase by 10ml Q6H to goal rate. FWF 150ml Q6H via GT. Taper off TPN once EN is being tolerated. Please see Nutrition F/U for details. FRANKRD
[2019-10-13] MEDS: NOREPINEPHRINE BITARTRATE 4 MG in NS 246 ML IV PRN (15:17)
[2019-10-13] MEDS: DEXAMETHASONE SOD PHOSPHATE 10 MG/ML VIAL IVP SCH (15:21)
[2019-10-13] MEDS ORDERED: EPINEPHrine JECT 0.1 MG/ML SYR IVP ONE (16:33)
[2019-10-13] MEDS ORDERED: ATROPINE SULFATE 1 MG/10 ML SYRINGE IVP ONE (16:33)
[2019-10-13] MEDS ORDERED: VANCOMYCIN HCL 1,500 MG in NS 250 ML IV ONE (17:00)
--- NOTE | 2019-10-13 19:35 | NUR ---
Closing Note Provided plan of care via sbar to receiving RN
--- NOTE | 2019-10-13 19:35 | NUR ---
OPENING NOTE: Received SBAR report from off coming RN for continuity of care.
--- NOTE | 2019-10-13 19:37 | NUR ---
Closing Note Provided plan of care via sbar to receiving RN
[2019-10-13] MEDS: HEPARIN 25,000 UNITS/D5W 250ML 250 ML IV PRN (20:09)
[2019-10-13] MEDS ORDERED: TRACE ELEMENTS IV SCH ×8 (21:00)
[2019-10-13] MEDS ORDERED: MVI IV SCH ×8 (21:00)
[2019-10-13] MEDS ORDERED: TPN CENTRAL IV SCH ×8 (21:00)
[2019-10-13] MEDS ORDERED: [UNRECOGNIZED DRUG - OTHER] IV SCH ×8 (21:00)
[2019-10-13] MEDS ORDERED: SODIUM CHLORIDE IV SCH ×8 (21:00)
[2019-10-13] MEDS: TAMSULOSIN HCL 0.4 MG CAP PO SCH (21:01)
--- NOTE | 2019-10-13 23:10 | NUR ---
DR YENIFER Vale notified regarding PCV change to 32.
[2019-10-14] VITALS (35 sets, daily range): BP systolic 86–138
[2019-10-14] MEDS: SODIUM BICARBONATE 8.4% JECT 100 MEQ in D5W 1,000 ML IV SCH ×2 (00:10→07:08)
[2019-10-14] MEDS: INSULIN LISPRO SLIDING SCALE 100 UNITS/ML VIAL (humaLOG) SUBCUT PRN ×4 (00:59→18:35)
[2019-10-14] MEDS: MORPHINE I.V. DRIP 100 ML IV PRN (02:44)
[2019-10-14] MEDS: LORazepam 2 MG/ML VIAL IVP PRN (04:13)
[2019-10-14] MEDS: NACL 0.9% 1,000 ML IV SCH ×2 (06:15→21:00)
[2019-10-14] MEDS: METOCLOPRAMIDE HCL 10 MG/2 ML VIAL IVP SCH ×4 (06:16→23:23)
[2019-10-14] MEDS: INSULIN NPH 100 UNITS/ML 10 ML VIAL SUBCUT SCH ×2 (07:05→18:09)
--- NOTE | 2019-10-14 07:30 | NUR ---
Opening Note Received plan of care via sbar from endorsing RN.
--- NOTE | 2019-10-14 07:35 | NUR ---
CLOSING NOTE: Endorsed SBAR report to oncoming RN for continuity of care.
[2019-10-14] MEDS: ALBUTEROL MDI INHALATION 8 GM INH INH SCH ×2 (07:55→13:46)
[2019-10-14 08:02] LABS: HEMOGLOBIN 8.8 g/dL (14.0-18.0); MEAN CORPUSCULAR HEMOGLOBIN 30 pg (27-31); MEAN CORPUSCULAR HGB CONC 31 % (32-36); MEAN CORPUSCULAR VOLUME 94 fL (79.0-98.0); PLATELET COUNT (AUTO) 195 K/uL (130-430); RED BLOOD CELL COUNT(AUTO) 2.98 MIL/uL (4.2-6.2); RED CELL DISTRIBUTION WIDTH 14.5 % (9.0-15.0); WHITE BLOOD COUNT (AUTO) 18.8 K/uL (4.8-10.8)
--- NOTE | 2019-10-14 08:05 | NUR ---
RT NOTES FIO2 to 0.90 per titration order. will monitor pt.
[2019-10-14 08:22] LABS: ALBUMIN 1.9 g/dL (3.4-4.8); CALCIUM 7.5 mg/dL (8.4-11.0); CREATININE 4.07 mg/dL (0.55-1.30); PHOSPHORUS 4.2 mg/dL (2.7-4.5); POTASSIUM 3.5 mmol/L (3.5-5.1); TOTAL BILIRUBIN 0.6 mg/dL (0.0-1.0)
--- NOTE | 2019-10-14 08:30 | NUR ---
Dr. Arriaga at bedside. Provided patient update. No new orders.
--- NOTE | 2019-10-14 08:40 | NUR ---
Dr. Baldwin at bedside. Provided patient update. No new orders.
--- NOTE | 2019-10-14 09:30 | NUR ---
Dr. Arriaga came back to unit and requested to revise Morphine drip to Dilaudid or Fentanyl drip. Consulted with Pharmacy and received information that we use Dilaudid drip.
[2019-10-14] MEDS: metroNIDAZOLE 500 mg/NS 100 ML IV SCH ×2 (09:51→20:30)
[2019-10-14] MEDS: CHOLECALCIFEROL (VITAMIN D3) 2,000 UNIT TABLET PO SCH (09:52)
[2019-10-14] MEDS: FAMOTIDINE PF 20 MG/2 ML VIAL IVP SCH (09:52)
[2019-10-14] MEDS: ASCORBIC ACID 500 MG TABLET PO SCH ×2 (09:52→20:21)
[2019-10-14] MEDS: MINERAL OIL 30 ML UDC PO SCH ×2 (09:52→20:21)
[2019-10-14] MEDS: PANTOPRAZOLE SODIUM 40 MG/VIAL (PROTONIX) IVP SCH ×2 (09:52→20:20)
[2019-10-14] MEDS: PSYLLIUM HUSK 1 PKT PACKET PO SCH ×2 (09:52→20:21)
[2019-10-14] MEDS: BALSAM PERU/CASTOR OIL 60 GM OINT...G. TP SCH (09:53)
[2019-10-14] MEDS: LevETIRAcetam 500 MG/5 ML UDC ORAL LIQUID GT SCH ×2 (09:53→23:14)
[2019-10-14 10:46] LABS: BAND % (MANUAL) 10 % (0-6); BASOPHILS % (MANUAL) 0 % (0-2); EOSINOPHILS % (MANUAL) 0 % (0-7); LYMPHOCYTES % (MANUAL) 6 % (20-46); METAMYELOCYTES % 1 % (0-0); MONOCYTES % (MANUAL) 8 % (0-11)
[2019-10-14] MEDS: VASOPRESSIN 40 UNITS in NS 38 ML IV PRN ×2 (10:50→20:45)
[2019-10-14] MEDS: CEFEPIME 1 GM in D5W 50 ML IV SCH (12:13)
--- NOTE | 2019-10-14 12:45 | NUR ---
Spoke to Dr. Booth consulted for end of life care. MD faced time patient and spoke to Lexis. Received feedback that wants to wait for extubation and end of life care on Wednesday or Wednesday. Will keep Dr. Arredondo informed when decides to move forward.
[2019-10-14] MEDS ORDERED: HYDROMORPHONE HCL IN 0.9% NACL 100 ML IV PRN (13:00)
--- NOTE | 2019-10-14 14:30 | NUR ---
Dr. Herbert at bedside. Provide patient update. Per MD she will make revisions to the NPH bid. Will increase dose. MD to place new order.
[2019-10-14] MEDS ORDERED: VANCOMYCIN HCL 750 MG in NS 250 ML IV ONE (15:00)
[2019-10-14] MEDS: DEXAMETHASONE SOD PHOSPHATE 10 MG/ML VIAL IVP SCH (15:31)
[2019-10-14] MEDS: FLUCONAZOLE 200 mg/ NS 100 ML IV SCH (16:48)
--- NOTE | 2019-10-14 19:16 | NUR ---
Closing Note Provided plan of care via sbar to receiving RN.
--- NOTE | 2019-10-14 19:20 | NUR ---
OPENING NOTE: Received SBAR report from off coming RN. Pt resting in bed, no s/s of acute distress noted. Pt on ventilator pressure control, inspiratory pressure 28, rate 32, PEEP 8 and FiO2 100%. Heparin gtt infusing @ 1,200 units/hr, Na bicarb infusing @ 75 ml/hr, Dilaudid gtt infusing @ 0.5 mg/hr, Vasopressin gtt infusing @ 0.04 units/min. Joshi catheter in place. Will continue to monitor and assess.
[2019-10-14] MEDS: TAMSULOSIN HCL 0.4 MG CAP PO SCH (20:21)
[2019-10-14] MEDS: HEPARIN 25,000 UNITS/D5W 250ML 250 ML IV PRN (20:47)
[2019-10-14] MEDS ORDERED: SODIUM CHLORIDE IV SCH ×8 (21:00)
[2019-10-14] MEDS ORDERED: TRACE ELEMENTS IV SCH ×8 (21:00)
[2019-10-14] MEDS ORDERED: [UNRECOGNIZED DRUG - OTHER] IV SCH ×8 (21:00)
[2019-10-14] MEDS ORDERED: TPN CENTRAL IV SCH ×8 (21:00)
[2019-10-14] MEDS ORDERED: MVI IV SCH ×8 (21:00)
--- NOTE | 2019-10-14 22:30 | NUR ---
Restarted Levophed gtt @ 0.03 mcg/kg/min for BP maintenance per protocol. Pt's MAP <64. Will continue to monitor and titrate accordingly. Vasopressin gtt continues infusing continuously @ 0.04 units/min (max dose).
[2019-10-15] VITALS (35 sets, daily range): BP systolic 68–137
[2019-10-15] MEDS: INSULIN LISPRO SLIDING SCALE 100 UNITS/ML VIAL (humaLOG) SUBCUT PRN ×4 (00:08→18:22)
[2019-10-15] MEDS: SODIUM BICARBONATE 8.4% JECT 100 MEQ in D5W 1,000 ML IV SCH ×2 (02:51→20:23)
[2019-10-15] MEDS: METOCLOPRAMIDE HCL 10 MG/2 ML VIAL IVP SCH ×4 (04:36→23:44)
--- NOTE | 2019-10-15 05:00 | NUR ---
CHG: CHG bath given, pt tolerated well. Provided full linen change. No BM noted. Sacral foam dressing in place and continues to be clean and dry.
[2019-10-15] MEDS: INSULIN NPH 100 UNITS/ML 10 ML VIAL SUBCUT SCH ×2 (06:29→17:57)
[2019-10-15 06:30] LABS: BASOPHILS # (AUTO) 0.2 K/uL (0.0-0.2); BASOPHILS % (AUTO) 0.7 % (0.0-2.0); EOSINOPHILS % (AUTO) 0.1 % (0.0-4.0); HEMATOCRIT 25.8 % (36-54); HEMOGLOBIN 8.3 g/dL (14.0-18.0); LYMPHOCYTES # (AUTO) 0.3 K/uL (1.0-5.5); LYMPHOCYTES % (AUTO) 1.2 % (20.5-51.5); MEAN CORPUSCULAR HEMOGLOBIN 30 pg (27-31); MEAN CORPUSCULAR HGB CONC 32 % (32-36); MEAN CORPUSCULAR VOLUME 94 fL (79.0-98.0); MONOCYTES # (AUTO) 1.3 K/uL (0.0-1.0); MONOCYTES % (AUTO) 4.8 % (1.7-9.3); NEUTROPHILS # (AUTO) 25.1 K/uL (1.8-7.7); PLATELET COUNT (AUTO) 179 K/uL (130-430); RED BLOOD CELL COUNT(AUTO) 2.75 MIL/uL (4.2-6.2); RED CELL DISTRIBUTION WIDTH 15.3 % (9.0-15.0); WHITE BLOOD COUNT (AUTO) 26.9 K/uL (4.8-10.8)
[2019-10-15 06:43] LABS: ALBUMIN 1.7 g/dL (3.4-4.8); CALCIUM 7.7 mg/dL (8.4-11.0); PHOSPHORUS 4.2 mg/dL (2.7-4.5); POTASSIUM 3.8 mmol/L (3.5-5.1); TOTAL BILIRUBIN 0.5 mg/dL (0.0-1.0)
--- NOTE | 2019-10-15 07:12 | NUR ---
CLOSING NOTE: Endorsed SBAR report to oncoming RN for continuity of care.
--- NOTE | 2019-10-15 07:27 | NUR ---
Opening Note Received plan of care via sbar from endorsing RN.
[2019-10-15 07:28] LABS: NEUTROPHILS % (AUTO) 93.2 % (40.0-70.0)
[2019-10-15] MEDS: ALBUTEROL MDI INHALATION 8 GM INH INH SCH ×3 (07:30→19:45)
--- NOTE | 2019-10-15 08:00 | NUR ---
Dr. Arriaga at bedside. Received order to titrate Dilaudid down. MD was provided update on patient. No new orders.
[2019-10-15] MEDS: metroNIDAZOLE 500 mg/NS 100 ML IV SCH ×2 (08:49→20:23)
[2019-10-15] MEDS: FAMOTIDINE PF 20 MG/2 ML VIAL IVP SCH (08:55)
[2019-10-15] MEDS: PSYLLIUM HUSK 1 PKT PACKET PO SCH ×2 (08:55→20:25)
[2019-10-15] MEDS: PANTOPRAZOLE SODIUM 40 MG/VIAL (PROTONIX) IVP SCH ×2 (08:55→20:24)
[2019-10-15] MEDS: MINERAL OIL 30 ML UDC PO SCH ×2 (08:56→20:25)
[2019-10-15] MEDS: CHOLECALCIFEROL (VITAMIN D3) 2,000 UNIT TABLET PO SCH (08:56)
[2019-10-15] MEDS: ASCORBIC ACID 500 MG TABLET PO SCH ×2 (08:56→20:25)
[2019-10-15] MEDS: BALSAM PERU/CASTOR OIL 60 GM OINT...G. TP SCH (08:57)
[2019-10-15] MEDS: LevETIRAcetam 500 MG/5 ML UDC ORAL LIQUID GT SCH ×2 (09:06→23:43)
--- NOTE | 2019-10-15 09:30 | NUR ---
Dr. Baldwin at bedside. Discussed fluid overload and provided patient update. Received order to change Levophed concentration from 4mg to 16mg.
[2019-10-15] MEDS ORDERED: NOREPINEPHRINE 4 MG/4 ML VIAL IV ONE (09:52)
[2019-10-15] MEDS ORDERED: NOREPINEPHRINE BITARTRATE 16 MG in NS 246 ML IV PRN (10:00)
--- NOTE | 2019-10-15 11:30 | NUR ---
Dr. Arredondo at bedside. MD to assess patient. MD was provided update and aware of family still making decision on future care. No new orders.
[2019-10-15] MEDS: CEFEPIME 1 GM in D5W 50 ML IV SCH (12:19)
[2019-10-15] MEDS: VASOPRESSIN 40 UNITS in NS 38 ML IV PRN (12:37)
[2019-10-15] MEDS: FLUCONAZOLE 200 mg/ NS 100 ML IV SCH (16:29)
[2019-10-15] MEDS: DEXAMETHASONE SOD PHOSPHATE 10 MG/ML VIAL IVP SCH (16:29)
[2019-10-15] MEDS: HEPARIN 25,000 UNITS/D5W 250ML 250 ML IV PRN (16:41)
--- NOTE | 2019-10-15 19:33 | NUR ---
Opening note Received patient after report from dayshift nurse. Isolation precautions observed for Covid19. Patient in vent support to trach on pressure control mode and tolerating. Vasopressors being infused as per MD orders to support BP within acceptable parameters. Report described patient as candidate for paliative care and waiting for family to decide. Joshi catheter in place. will continue to monitor patient as per unit protocol.
[2019-10-15] MEDS: TAMSULOSIN HCL 0.4 MG CAP PO SCH (20:24)
[2019-10-15] MEDS: NACL 0.9% 1,000 ML IV SCH (21:00)
[2019-10-15] MEDS ORDERED: [UNRECOGNIZED DRUG - OTHER] IV SCH ×10 (21:00)
[2019-10-15] MEDS ORDERED: SODIUM CHLORIDE IV SCH ×10 (21:00)
[2019-10-15] MEDS ORDERED: MVI IV SCH ×10 (21:00)
[2019-10-15] MEDS ORDERED: TPN CENTRAL IV SCH ×10 (21:00)
[2019-10-15] MEDS ORDERED: TRACE ELEMENTS IV SCH ×10 (21:00)
[2019-10-16] VITALS (16 sets, daily range): BP systolic 0–127
[2019-10-16] MEDS: INSULIN LISPRO SLIDING SCALE 100 UNITS/ML VIAL (humaLOG) SUBCUT PRN ×2 (00:15→06:57)
[2019-10-16] MEDS: METOCLOPRAMIDE HCL 10 MG/2 ML VIAL IVP SCH ×2 (04:32→10:00)
[2019-10-16 06:03] LABS: BASOPHILS # (AUTO) 0.1 K/uL (0.0-0.2); BASOPHILS % (AUTO) 0.5 % (0.0-2.0); HEMOGLOBIN 7.9 g/dL (14.0-18.0); LYMPHOCYTES # (AUTO) 0.4 K/uL (1.0-5.5); LYMPHOCYTES % (AUTO) 1.6 % (20.5-51.5); MEAN CORPUSCULAR HEMOGLOBIN 30 pg (27-31); MEAN CORPUSCULAR HGB CONC 32 % (32-36); MEAN CORPUSCULAR VOLUME 94 fL (79.0-98.0); MONOCYTES # (AUTO) 1.1 K/uL (0.0-1.0); MONOCYTES % (AUTO) 4.6 % (1.7-9.3); NEUTROPHILS # (AUTO) 22.3 K/uL (1.8-7.7); NEUTROPHILS % (AUTO) 93.3 % (40.0-70.0); PLATELET COUNT (AUTO) 176 K/uL (130-430); RED BLOOD CELL COUNT(AUTO) 2.65 MIL/uL (4.2-6.2); RED CELL DISTRIBUTION WIDTH 15.4 % (9.0-15.0); WHITE BLOOD COUNT (AUTO) 23.9 K/uL (4.8-10.8)
[2019-10-16 06:33] LABS: ALBUMIN 1.7 g/dL (3.4-4.8); CALCIUM 8.3 mg/dL (8.4-11.0); CREATININE 4.61 mg/dL (0.55-1.30); PHOSPHORUS 5.1 mg/dL (2.7-4.5); POTASSIUM 3.7 mmol/L (3.5-5.1); TOTAL BILIRUBIN 0.6 mg/dL (0.0-1.0); VANCOMYCIN,RANDOM 10.8 ug/mL
[2019-10-16] MEDS: INSULIN NPH 100 UNITS/ML 10 ML VIAL SUBCUT SCH (06:48)
[2019-10-16] MEDS: metroNIDAZOLE 500 mg/NS 100 ML IV SCH (08:34)
[2019-10-16] MEDS: MINERAL OIL 30 ML UDC PO SCH (08:34)
[2019-10-16] MEDS: PSYLLIUM HUSK 1 PKT PACKET PO SCH (08:34)
[2019-10-16] MEDS: PANTOPRAZOLE SODIUM 40 MG/VIAL (PROTONIX) IVP SCH (08:34)
[2019-10-16] MEDS: FAMOTIDINE PF 20 MG/2 ML VIAL IVP SCH (08:34)
[2019-10-16] MEDS: ASCORBIC ACID 500 MG TABLET PO SCH (08:34)
[2019-10-16] MEDS: CHOLECALCIFEROL (VITAMIN D3) 2,000 UNIT TABLET PO SCH (08:34)
[2019-10-16] MEDS: BALSAM PERU/CASTOR OIL 60 GM OINT...G. TP SCH (08:35)
[2019-10-16] MEDS: ALBUTEROL MDI INHALATION 8 GM INH INH SCH (08:55)
[2019-10-16] MEDS ORDERED: INSULIN NPH 100 UNITS/ML 10 ML VIAL SUBCUT SCH (09:00)
[2019-10-16] MEDS ORDERED: MORPHINE 4 MG/ML INJ. SYRINGE IVP PRN (09:30)
[2019-10-16] MEDS ORDERED: MORPHINE I.V. DRIP 100 ML IV PRN (09:30)
[2019-10-16] MEDS ORDERED: LORazepam 2 MG/ML VIAL IVP PRN (09:30)
--- NOTE | 2019-10-16 09:45 | NUR ---
PT'S AND SON AT BEDSIDE. PT IS DUE FOR TERMINAL EXTUBATION TODAY. WILL MEDICATE PT ORDERED.
[2019-10-16] MEDS: LevETIRAcetam 500 MG/5 ML UDC ORAL LIQUID GT SCH (10:00)
--- NOTE | 2019-10-16 10:15 | NUR ---
PT GIVEN ATIVAN AND MORPHINE. MS DRIP STARTED, PT'S AND DAUGHTER AT BEDSIDE.
--- NOTE | 2019-10-16 10:38 | NUR ---
PER Rigo STEVENS, VENT TURNED OFF, FAMILY AT BEDSIDE. PT O2 SAT AND RR AND HR SLOWLY GOING DOWN. NO S/S OF AGITATION.
--- NOTE | 2019-10-16 10:42 | NUR ---
TELE MONITOR SHOWS, PT ON ASYSTOLE. FAMILY AT BEDSIDE.
--- NOTE | 2019-10-16 10:47 | NUR ---
PER UNIT SEC. CLAUDIA , PT HAS NO RR, HR AND O2 SAT ON THE MONITOR. FAMILY AT BEDSIDE.
--- NOTE | 2019-10-16 11:00 | NUR ---
PT HAS NO SPONTANEOUS RESPIRATION, NO HEART BEAT, PUPILS FIXED AND DILATED. FAMILY AT BEDSIDE. Addendum: 10/16/19 at 1210 by Sebastian Carver RN 1100 AM: PATIENT HAS . VERIFIED WITH PRINT INSPECTOR TSAI.
--- NOTE | 2019-10-16 11:10 | NUR ---
RN HAS GIVEN MORPHINE.PT HAD A SPONTANEOUS TRIAL PER DR. GREGORY. NO DISTRESS NOTED. PT THEN TAKEN OFF VENTILATOR AT 1035. FAMILY AT BEDSIDE, RN AWARE. Addendum: 10/16/19 at 1112 by Reny Aquino RT Amended: Links added.
--- NOTE | 2019-10-16 11:24 | NUR ---
INFORMED MD'S PATIENT DR. GREGORY DIALED [phone] HAUSER IN NURSING UNIT DR. HUNG DIALED [phone] POLLARD DIALED [phone] SPOKE TO AMRY SUGGS DIALED [phone] SPOKE TO JUVENTINO MILLER DIALED [phone] SPOKE TO RUBEN MARIN DIALED [phone] SPOKE TO XOCHITL
[2019-10-16] MEDS ORDERED: SODIUM CHLORIDE IV SCH ×10 (21:00)
[2019-10-16] MEDS ORDERED: SODIUM ACETATE IV SCH ×10 (21:00)
[2019-10-16] MEDS ORDERED: TPN CENTRAL IV SCH ×10 (21:00)
[2019-10-16] MEDS ORDERED: [UNRECOGNIZED DRUG - OTHER] IV SCH ×10 (21:00)
== END 2019-10-16 10:47 | disposition expired | DRG 4 ==
LOC: SED 13:53 → STU 18:01 → SIC 09-25 04:39
PROVIDERS: ADMIT Internal Medicine; ATTEND Internal Medicine
PROC: XW033E5 Introduction of Remdesivir Anti-infective into Peripheral Vein, Percutaneous Approach, New Technology Group 5 (ICD-10-PCS; 2019-09-16)
PROC: XW033E5 Introduction of Remdesivir Anti-infective into Peripheral Vein, Percutaneous Approach, New Technology Group 5 (ICD-10-PCS; 2019-09-17)
PROC: XW033H5 Introduction of Tocilizumab into Peripheral Vein, Percutaneous Approach, New Technology Group 5 (ICD-10-PCS; 2019-09-18)
PROC: 02HV33Z Insertion of Infusion Device into Superior Vena Cava, Percutaneous Approach (ICD-10-PCS; 2019-09-26)
PROC: B548ZZA Ultrasonography of Superior Vena Cava, Guidance (ICD-10-PCS; 2019-09-26)
PROC: 5A09457 Assistance with Respiratory Ventilation, 24-96 Consecutive Hours, Continuous Positive Airway Pressure (ICD-10-PCS; 2019-09-26)
PROC: XW033E5 Introduction of Remdesivir Anti-infective into Peripheral Vein, Percutaneous Approach, New Technology Group 5 (ICD-10-PCS; principal; 2019-09-28)
PROC: 5A1955Z Respiratory Ventilation, Greater than 96 Consecutive Hours (ICD-10-PCS; 2019-09-28)
PROC: 0BH17EZ Insertion of Endotracheal Airway into Trachea, Via Natural or Artificial Opening (ICD-10-PCS; 2019-09-28)
PROC: 0DH63UZ Insertion of Feeding Device into Stomach, Percutaneous Approach (ICD-10-PCS; 2019-10-11)
PROC: 0DB68ZX Excision of Stomach, Via Natural or Artificial Opening Endoscopic, Diagnostic (ICD-10-PCS; 2019-10-11)
PROC: 0B113F4 Bypass Trachea to Cutaneous with Tracheostomy Device, Percutaneous Approach (ICD-10-PCS; 2019-10-11 09:50)
PROC: 05HH33Z Insertion of Infusion Device into Left Hand Vein, Percutaneous Approach (ICD-10-PCS; 2019-10-12)
PROC: 5A1D70Z Performance of Urinary Filtration, Intermittent, Less than 6 Hours Per Day (ICD-10-PCS; 2019-10-12)
PROC: 5A1D70Z Performance of Urinary Filtration, Intermittent, Less than 6 Hours Per Day (ICD-10-PCS; 2019-10-14)
DX: A41.89 Other specified sepsis (principal); N17.0 Acute kidney failure with tubular necrosis; J96.21 Acute and chronic respiratory failure with hypoxia; J12.89 Other viral pneumonia; E43 Unspecified severe protein-calorie malnutrition; U07.1 COVID-19; K57.20 Diverticulitis of large intestine with perforation and abscess without bleeding; E87.3 Alkalosis; E87.2 Acidosis; E87.4 Mixed disorder of acid-base balance; K22.10 Ulcer of esophagus without bleeding; J44.9 Chronic obstructive pulmonary disease, unspecified; N40.0 Benign prostatic hyperplasia without lower urinary tract symptoms; G40.909 Epilepsy, unspecified, not intractable, without status epilepticus; E87.5 Hyperkalemia; R19.7 Diarrhea, unspecified; I11.0 Hypertensive heart disease with heart failure; R74.0 Nonspecific elevation of levels of transaminase and lactic acid dehydrogenase [LDH]; I50.9 Heart failure, unspecified; D72.810 Lymphocytopenia; K29.70 Gastritis, unspecified, without bleeding; R13.12 Dysphagia, oropharyngeal phase; Z90.49 Acquired absence of other specified parts of digestive tract; Z88.8 Allergy status to other drugs, medicaments and biological substances; Z68.33 Body mass index [BMI] 33.0-33.9, adult; Z86.19 Personal history of other infectious and parasitic diseases; Z86.74 Personal history of sudden cardiac arrest
CPT/HCPCS: 36415; 36600; 43239; 43760; 71045; 74018; 80048; 80053; 80076; 80202-TC; 81000-TC; 82728; 82803-TC; 82962; 83605; 83615-TC; 83690-TC; 83735-TC; 83880; 84100-TC; 84443-TC; 84478-TC; 84484; 85007; 85025; 85027; 85379; 85384-TC; 85610-TC; 85651-TC; 85730-TC; 86140; 86738; 86886; 86900; 86901; 87040-TC; 87070-TC; 87081; 87205-TC; 87230-TC; 87449; 88305; 88312; 88313; 90935; 90937; 93005; 93970; 94003; 94010; 94640; 94660; 94760; 96365; 96367; 99291; C1751; C9113; G0378; J0171; J0330; J0360; J0456; J0461; J0610; J0692; J0696; J1100; J1200; J1450; J1644; J1650; J1815; J1885; J1956; J2001; J2060; J2248; J2250; J2270; J2543; J2704; J2765; J2930; J3010; J3370; J3475; J3480; J3490; J7030; J7042; J7050; J7060; J7131; J8540; P9017; P9046; Q9967; U0003-CS